=== PATIENT | female | born 1960 | race Caucasian/White ===

== ENCOUNTER → 2019-12-31 08:02 | Outpatient (CLI) | payer BC, SELFPAY ==
--- NOTE | ~2019-12-31 | MM_ITS ---
EXAMINATION: MM screening kaylee BI w marvin HISTORY: Screening mammogram TECHNIQUE: Craniocaudal and mediolateral oblique 3-D tomosynthesis images were obtained and synthetic 2-D images were generated. CAD analysis was submitted and interpreted. COMPARISON: 01/02/2017 bilateral diagnostic digital mammogram and Limited bilateral breast ultrasound 11/11/2016, 09/28/2015 bilateral digital screening mammogram examinations BREAST PARENCHYMAL COMPOSITION: There are scattered areas of fibroglandular density. FINDINGS: Numerous bilateral benign calcifications are noted. There is a stable mass in each breast, unchanged since 09/28/2015. There is no evidence of interval new suspicious mass, calcification, or a rchitectural distortion to suggest malignancy in either breast. There has been no suspicious interval change. IMPRESSION: 1. No mammographic evidence of malignancy. 2. Recommend routine screening mammography in one year. BI-RADS Category 2: Benign finding(s). Reviewed, dictated and finalized at location B. SALESPERSON
== END ==
PROVIDERS: Visit Provider Physician Assistant
DX: Z12.31 Encounter for screening mammogram for malignant neoplasm of breast (principal)
CPT/HCPCS: 77063; 77067

== ENCOUNTER 2020-05-11 15:15 | Inpatient (IN) | payer BC, SELFPAY ==
[2020-05-11] VITALS (29 sets, daily range): BP systolic 57–102; BP diastolic 43–75; PULSE 80–108; RESP 13–26; TEMP 36.1–36.6; O2SAT 98–100; BMI 22.1
--- NOTE | ~2020-05-11 | CT_ITS ---
EXAMINATION: CT chest abdomen wo con DATE: 05/12/2020 16:49 INDICATION: Weight loss. Dysphagia. TECHNIQUE: Computed tomography (CT) of the chest and abdomen was performed without intravenous contra st. Automated exposure control and iterative reconstruction technique were employed. The dose-length product was 301.16 mGy-cm. COMPARISON: None FINDINGS: CHEST CT: There is mild emphysema. There is mild atelectasis bilaterally. There is a 5 mm nodule in left lower lobe, likely benign. A calcified right lung nodule and calcified right hilar and mediastinal lymph no norma are consistent with old granulomatous disease. There is a trace right pleural effusion. The heart size is normal. There are coronary artery calcifications. No pericardial effusion. There is severe c ervical and thoracic spondylosis. ABDOMEN CT: There is a 13 mm cyst in the liver. Calcifications in the spleen are consistent with old granulomatou s disease. The gallbladder, pancreas, and right adrenal gland are normal. There is a 14 mm mass in le ft adrenal gland measuring low-attenuation, consistent with an adenoma. The kidneys are normal. There is no urolithiasis. There are no dilated loops of bowel. There are no pathologically enlarged lymph nodes. There is no free intraperitoneal fluid. There is moderate lumbar spondylosis. IMPRESSION: 1. Mild emphysema. Reviewed, dictated and finalized at location A. IMPRESSION: 1. Mild emphysema.
--- NOTE | ~2020-05-11 | CT_ITS ---
EXAMINATION: CT pelvis wo con DATE: 05/16/2020 10:54 INDICATION: Unintentional weight loss. TECHNIQUE: Computed tomography (CT) of the pelvis was performed without intravenous contrast. Automat ed exposure control and iterative reconstruction technique were employed. The dose-length product was 411.60 mGy-cm. COMPARISON: None FINDINGS: There are no dilated loops of bowel. There is a 3.9 cm subserosal uterine fibroid. There is a small left inguinal hernia containing fat. There are no pathologically enlarged lymph nodes. There is trace ascites. There is moderate lumbar spondylosis. IMPRESSION: 1. Uterine fibroid. 2. Left inguinal hernia containing fat. Reviewed, dictated and finalized at location A.
--- NOTE | ~2020-05-11 | CT_ITS ---
EXAMINATION: CT cervical spine wo con DATE: 05/12/2020 16:49 INDICATION: Syncope. Fall. TECHNIQUE: Computed tomography (CT) of the cervical spine was performed without intravenous contrast. Automated exposure control and iterative reconstruction technique were employed. The dose-length pro duct was 188.23 mGy-cm. COMPARISON: None FINDINGS: There is kyphosis of cervical spine. There is 12 degrees levoscoliosis of cervical spine. V ertebral body heights are normal. There is mildly decreased disc height at C4-C5 and severely decreas ed disc height at C5-C6 and C6-C7. The following disc levels are specifically discussed: C2-C3: There is no uncovertebral joint osteoarthritis. There is mild bilateral facet joint osteoarthr itis. There is no neural foraminal stenosis. There is no central canal stenosis. C3-C4: There is no uncovertebral joint osteoarthritis. There is no facet joint osteoarthritis. There is no neural foraminal stenosis. There is no central canal stenosis. C4-C5: There is mild bilateral uncovertebral joint osteoarthritis. There is mild left facet joint ost eoarthritis. There is no neural foraminal stenosis. There is mild central canal stenosis. C5-C6: There is severe bilateral uncovertebral joint osteoarthritis. There is mild bilateral facet santy int osteoarthritis. There is moderate bilateral neural foraminal stenosis. There is mild central chris l stenosis. C6-C7: There is severe bilateral uncovertebral joint osteoarthritis. There is mild right and moderate left facet joint osteoarthritis. There is mild right and moderate left neural foraminal stenosis. Th ere is mild central canal stenosis. C7-T1: There is no uncovertebral joint osteoarthritis. There is mild bilateral facet joint osteoarthr itis. There is no neural foraminal stenosis. There is no central canal stenosis. IMPRESSION: 1. No fracture. 2. Severe cervical spondylosis. Reviewed, dictated and finalized at location A.
--- NOTE | ~2020-05-11 | XR_ITS ---
XR chest 2V DATE: 05/11/2020 16:02 INDICATION: Weakness. Paresis. TECHNIQUE: AP and lateral views COMPARISON: None FINDINGS: Normal heart size. No hilar or mediastinal enlargement. Old pulmonary granulomatous disease including calcified right hilar nodes, calcified right pulmonary granuloma. No pulmonary infiltrate or consolidation, pleural effusion or pulmonary vascular congestion or pneumothorax. Bilateral cervical ribs. IMPRESSION: No active cardiopulmonary disease Reviewed, dictated and finalized at location A.
--- NOTE | ~2020-05-11 | CT_ITS ---
EXAMINATION: CT brain wo con DATE: 05/12/2020 16:49 INDICATION: Confusion. Syncope. TECHNIQUE: Computed tomography (CT) of the head was performed without intravenous contrast. The mA wa s adjusted according to patient size. Iterative reconstruction technique was employed. The dose-lengt h product was 605.33 mGy-cm. COMPARISON: None FINDINGS: There is no intracranial hemorrhage, acute infarction, or abnormal intracranial mass lesion . The ventricles are normal in size. There is mild mucosal thickening in sphenoid sinus. The orbits a re normal. The mastoid air cells are normal. IMPRESSION: 1. Normal brain. Reviewed, dictated and finalized at location A. IMPRESSION: 1. Normal brain.
--- NOTE | ~2020-05-11 | XR_ITS ---
EXAMINATION: XR barium swallow modified DATE: 05/15/2020 13:09 INDICATION: Dysphagia. TECHNIQUE: The patient was given barium-containing material of multiple consistencies to swallow by t betty speech pathologist while I performed fluoroscopy. Fluoroscopy exposure time was 1.9 minutes. The n umber of fluoroscopy images saved to the PACS was 1. Dose-area product was 1.506 Gy-cm^2. FINDINGS: There was no laryngeal penetration or aspiration. IMPRESSION: 1. No laryngeal penetration or aspiration. 2. Please refer to the speech therapy report for recommendations. Reviewed, dictated and finalized at location A.
--- NOTE | ~2020-05-11 | MR_ITS ---
EXAMINATION: MR brain/brain stem wo con DATE: 05/14/2020 19:09 INDICATION: Dysphagia. TECHNIQUE: Magnetic resonance imaging (MRI) of the brain and brainstem was performed without intraven ous contrast. Sequences included sagittal and axial T1-weighted FLAIR, axial T1-weighted FSE, axial d iffusion-weighted FS EPI, sagittal T2-weighted FLAIR, axial T2*-weighted GRE, axial T2-weighted FLAIR Propeller, and axial T2-weighted Propeller. Apparent diffusion coefficient (ADC) maps were created. COMPARISON: Head CT dated 05/12/2020 FINDINGS: There are no areas of restricted diffusion to suggest acute infarction. No intracranial hemorrhage or abnormal intracranial mass lesion. There is nonspecific increased T2-weighted signal intensity in th e periventricular cerebral white matter. No pericallosal white matter lesions to suggest multiple scl erosis. There are no intraparenchymal signal abnormalities seen on the other pulse sequences. The david tricles are symmetric and normal in size. There are no abnormal extra-axial fluid collections. Flow v oids are seen in the cerebral arteries on the T2-weighted sequences consistent with their expected pa tency. Mucous retention cyst in the left maxillary sinus. Visualized orbits and soft tissues are unre markable. IMPRESSION: 1. No stroke or other acute intracranial process. 2. Normal aging brain with mild relatively uniform periventricular white matter T2 hyperintensity. No more discrete T2 hyperintense foci and specifically no pericallosal white matter lesions to suggest multiple sclerosis. Reviewed, dictated and finalized at location A. IMPRESSION: 1. No stroke or other acute intracranial process. 2. Normal aging brain with mild relatively uniform periventricular white matter T2 hyperintensity. No more discrete T2 hyperintense foci and specifically no p ericallosal white matter lesions to suggest multiple sclerosis.
--- NOTE | ~2020-05-11 | US_ITS ---
EXAMINATION: US carotid duplex BI DATE: 05/12/2020 13:24 INDICATION: Syncope. TECHNIQUE: Grayscale, color Doppler, and pulsed Doppler images of the cervical carotid arteries were obtained. The degree of vessel stenosis is placed in one of the following categories: normal, <50%, 5 0-69%, >=70% but less than near-occlusion, near-occlusion, or total occlusion. Note that percent sten osis relative to normal distal artery lumen diameter is indirectly measured from velocity measurement s as described by Orlando, et al. Radiology 2003; [id number]:340-346. COMPARISON: None. FINDINGS: RIGHT: The right common carotid artery (CCA) peak systolic velocity (PSV) is 51 cm/s. The right internal car otid artery (ICA) PSV is 63 cm/s. The right ICA end-diastolic velocity (EDV) is 24 cm/s. The right IC A/CCA PSV ratio is 1.2. Grayscale and color Doppler images yield an estimate of <50% diameter reducti on from plaque in the ICA. There is antegrade flow in the right vertebral artery. LEFT: The left CCA PSV is 71 cm/s. The left ICA PSV is 87 cm/s. The left ICA EDV is 34 cm/s. The left ICA/C CA PSV ratio is 1.2. Grayscale and color Doppler images yield an estimate of <50% diameter reduction from plaque in the ICA. There is antegrade flow in the left vertebral artery. IMPRESSION: 1. <50% stenosis in the right internal carotid artery. 2. <50% stenosis in the left internal carotid artery. Reviewed, dictated and finalized at location A.
--- NOTE | ~2020-05-11 | XR_ITS ---
EXAMINATION: XR barium swallow DATE: 05/14/2020 16:35 INDICATION: Dysphagia. TECHNIQUE: The patient drank thick barium, gas-producing crystals, and thin barium. Fluoroscopic spot radiographs of the hypopharynx and esophagus were obtained. Fluoroscopy exposure time was 2.3 minut es. A total of 1400 fluoroscopic images were recorded. COMPARISON: None. FINDINGS: The pharynx is symmetric and without evidence of mass lesion or mucosal irregularity. The e sophagus is normal without mass or stricture. Primary and secondary peristaltic waves are within norm al limits for age. There are a few subsequent tertiary contractions. There is no hiatal hernia. There was no gastroesophageal reflux with provocative maneuvers. IMPRESSION: 1. Mild esophageal dysmotility with a few tertiary contractions following relatively normal primary a nd secondary peristaltic waves. Otherwise unremarkable esophagram. Reviewed, dictated and finalized at location A. IMPRESSION: 1. Mild esophageal dysmotility with a few tertiary contractions following relat ively normal primary and secondary peristaltic waves. Otherwise unremarkable es ophagram.
[2020-05-11 15:45] LABS: Basophils Absolute Auto 0.1 K/mm3 (0.0-0.1); Basophils Percent Auto 0.4 % (0.2-1.2); Eosinophils Percent Auto 0.1 % (0-4.4); Hemoglobin 11.9 g/dL (12.0-15.0); Immature Granulocyte Absolute 0.06 K/mm3 (0.00-0.031); Immature Granulocyte Percent A 0.5 % (0-0.5); Lymphocytes Absolute Auto 2.03 K/mm3 (0.9-3.2); Lymphocytes Percent Auto 17.5 % (18.3-44.2); Mean Corpuscular Hemoglobin 32.2 pg (26-34); Mean Corpuscular Volume 92.1 fl (80-100); Mean Platelet Volume 10.2 fl (7.4-10.4); Monocytes Absolute Auto 0.8 K/mm3 (0.1-0.6); Monocytes Percent Auto 6.6 % (2.6-8.5); Neutrophils Absolute Auto 8.7 K/mm3 (1.3-6.7); Neutrophils Percent Auto 74.9 % (45.5-73.1); Platelet Count Result 311 k/mm3 (150-375); Red Blood Count 3.69 M/mm3 (4.2-5.4); Red Cell Distribution Width 13.7 % (11.5-14.5); White Blood Count 11.6 K/mm3 (4.5-10.0)
[2020-05-11] MEDS: SODIUM CHLORIDE 0.9% IV 1,000 ML 999 ML IV CONT ×3 (15:47→17:32)
[2020-05-11 15:56] LABS: Lactic Acid Reflex 2.7 mmol/L (0.7-2.1)
[2020-05-11 15:57] LABS: Alanine Aminotransferase 16 U/L (4-35); Albumin Level 4.1 g/dL (3.5-5.1); Alkaline Phosphatase 195 U/L (38-126); Aspartate Amino Transferase 33 U/L (14-36); Bilirubin,Total 0.7 mg/dL (0.2-1.3); Blood Urea Nitrogen 44 mg/dL (7-17); Calcium 9.9 mg/dL (8.4-10.2); Carbon Dioxide 22 mmol/L (22-30); Chloride 95 mmol/L (98-107); Estimated CRCL calculation 23 ml/min; Estimated Glomerular Filt Rate 25; Glucose 123 mg/dL (65-105); Lipase 357 U/L (23-300); Potassium 3.2 mmol/L (3.4-5.0); Sodium 129 mmol/L (137-145)
[2020-05-11 17:41] LABS: Add Urine Microscopic? YES; Appearance Urine Cloudy (Clear); Bacteria Urine 4+ /hpf; Bilirubin Urine Negative (Negative); Blood Urine 1+ (Negative); Color Urine Yellow (Yellow); Glucose Urine UA Negative (Negative); Ketones Urine Trace mg/dL (Negative); Leukocyte Esterase Ur 1+ LEU/UL (Negative); Mucus Urine Rare /lpf; Nitrate Urine Negative (Negative); Protein Urine 2+ mg/dL (Negative); RBC Urine 0-2 /hpf (0-2); Specific Grav Ur 1.013 (1.001-1.035); Squamous Epithelial Cell Urine Few /hpf (Few)
[2020-05-11 17:43] LABS: Free T4 Free Thyroxine Reflex 1.67 ng/dL (0.78-2.19)
--- NOTE | 2020-05-11 18:01 | ED.WEAKNESS ---
HPI - Weakness General Chief complaint: Weakness Stated complaint: weakness, abnormal labs Time Seen by Provider: 05/11/20 15:26 History of Present Illness HPI Narrative: Patient is a 59-year-old female who presents the ER with abnormal labs and fatigue from her PCP office. Patient reports over the last 2 to 3 months she has lost 70 pounds. She reports she has lost her appetite but also has difficulty swallowing at times and has persistent nausea. No diarrhea or constipation. Denies any change in urinary habits. No recent illnesses. Patient quit smoking 6 months ago. She is without cough or dyspnea. Reports she has been working at home since December and has tried to maintain a normal schedule in terms of eating and moving around. Related Data Home Medications Medication Instructions Recorded Confirmed atorvastatin 05/11/20 dorzolamide-timolol 05/11/20 losartan-hydrochlorothiazide tablet 05/11/20 Allergies Allergy/AdvReac Type Severity Reaction Status Date / Time clindamycin Allergy Unknown Hives Verified 05/11/20 15:42 Penicillins Allergy Unknown Anaphylaxis Verified 05/11/20 15:42 cephalexin [From Keflex] Allergy Hives Verified 05/11/20 15:42 Review of Systems Review of Systems: All systems reviewed & are unremarkable except as noted in HPI and below Constitutional: Constitutional: Denies chills, Reports fatigue and Denies fever(s) ENT: Denies dizziness, Denies nasal congestion and Denies sore throat Cardiovascular: Cardiovascular: Denies chest pain and Denies rapid heart rate Respiratory: Respiratory: Denies cough, Denies dyspnea and Denies wheezing Gastrointestinal: Gastrointestinal: Denies abdominal pain, Denies diarrhea, Reports nausea and Denies vomiting Genitourinary: Genitourinary: Denies nocturia and Denies dysuria [facility] Past Medical History Medical History (Updated 05/11/20 @ 20:14 by Bandar Rivera MD) Hyperlipidemia Hypertension Surgical History Surgical History (Updated 05/11/20 @ 18:05 by Bandar Rivera MD) History of appendectomy Family History Family History (Updated 09/07/15 @ 15:47 by DOCTOR UNKNOWN) Other Family history of hypercholesterolemia Social History Social History (Updated 05/11/20 @ 18:05 by Bandar Rivera MD) Smoking status: Former smoker Smoking end date: 11/30/19 Alcohol intake: current Exam Narrative: Exam Narrative: GENERAL: Well-appearing, well-nourished, and in no acute distress. HEAD: Normocephalic, atraumatic. ENT: Mucous membranes moist. Neck: Supple, no thyromegaly appreciated. CHEST: Clear to auscultation. No respiratory distress. HEART: Regular rate and rhythm. Normal peripheral pulses. ABDOMEN: Soft, nontender, nondistended. EXTREMITIES: Normal range of motion. No edema. SKIN: Warm, dry, no rash. NEURO: Alert and oriented x3. PSYCH: Normal mood and affect. Course Course Emergency Course: Patient feeling better with IV fluid. Blood pressure in the 90s. Will admit to hospitalist service. Patient will likely need imaging tomorrow for further evaluation of her nausea and weight loss. Discussed with her that I am concerned that she could have a malignancy but that I do not have any concrete evidence of this other than a 70 pound weight loss over the last few months that was unintentional. Vital Signs Vital signs: Vital Signs Temperature 97.9 F 05/11/20 15:18 Pulse Rate 108 H 05/11/20 15:18 Respiratory Rate 20 05/11/20 15:18 Blood Pressure 57/43 L 05/11/20 15:18 Pulse Oximetry 100 05/11/20 15:18 Temperature 97.9 F 05/11/20 15:18 Pulse Rate 89 05/11/20 17:31 Respiratory Rate 13 05/11/20 17:31 Blood Pressure 98/68 L 05/11/20 18:42 Pulse Oximetry 100 05/11/20 17:02 MDM - Weakness Lab Data Result diagrams: 05/11/20 15:40 05/11/20 15:40 Labs: Lab Results 05/11/20 05/11/20 05/11/20 Range/Units 15:40 15:40 15:40 WBC 11.6 H (4.5-10
[2020-05-11 18:43] LABS: Reflex Lactic Acid Yes or No Add Lactic
[2020-05-11 18:54] LABS: Total Triiodothyronine (T3) 1.13 NG/ML (0.97-1.69)
--- NOTE | 2020-05-11 20:00 | PM.IMHP ---
H&P: HPI History of Present Illness Chief complaint: Abnormal labs.? Narrative: Brooklyn Godwin is a 59-year-old female with hypertension, hyperlipidemia, and glaucoma who presented to the emergency department earlier this afternoon at the direction of her primary care provider for evaluation of ?abnormal labs.? She had a routine appointment scheduled with her primary provider, Anabel Epstein PA-C, today and in anticipation she had labs drawn yesterday. She received a call today stating that her labs were abnormal and that she was to come to the emergency department for further evaluation. This did not surprise the patient as she assumed that she was dehydrated as she has had a poor appetite over the past several months. In fact she reports a 70 pound unintentional weight loss since the beginning of the year. With further questioning, she tells me that food just does not sound, that she has frequent nausea, and it sounds as though she has had dysphagia with both solids and liquids. ?I think my thyroid may be enlarged as I sometimes cough and choke while swallowing.? Over the past 6 weeks, she has been lightheaded and dizzy, mainly with position changes, and reports having a syncopal episode several weeks ago. In fact, she believe she had a syncopal episode this morning while getting ready for her appointment. She had a brief feeling of lightheadedness before coming to on the floor. She sustained no injuries. She has no known history of malignancy, had previously had abnormal mammograms however had normal mammography in December 2019. She denies lymphadenopathy and night sweats. No postmenopausal bleeding. She denies abdominal pain and epigastric pain. She rarely has heartburn. She denies hematemesis, melena, and hematochezia. She has never had endoscopy or colonoscopy. She further denies chest pain, pleuritic pain, palpitations, and shortness of breath. She continues to take her medications as prescribed. No recent additions to her medication regimen. Review of Systems Review of Systems: Narrative: Twelve systems were reviewed with pertinent positives and negatives as per HPI. No recent cold or flu symptoms. She denies headache. No auditory visual changes. She denies focal weakness and paresthesias. No history of cardiac or pulmonary disease. No history of malignancy. She has noticed a slight decrease in urine output but denies hematuria, dysuria, and feelings of incomplete evacuation after voiding.. No history of venous thromboembolism. Except as documented, all other systems were reviewed and are negative [facility] Past Medical History Medical History (Updated 05/11/20 @ 23:06 by Marilyn Arvizu PA-C) Glaucoma Hyperlipidemia Hypertension Surgical History Surgical History (Updated 05/11/20 @ 23:02 by Marilyn Arvizu PA-C) History of appendectomy History of bilateral carpal tunnel release History of section Family History Family History Mother Family history of hypercholesterolemia Hypertension Father Family history of hypercholesterolemia Hypertension Sibling Acute myocardial infarction Hypertension Family history of hypercholesterolemia Social History Social History (Updated 05/11/20 @ 23:02 by Marilyn Arvizu PA-C) Social History: Surrogate decision maker: Jules Bennett, . Code status: Full code. Smoking packs per day: 0.5 Smoking cigarettes per day: 10.0 Years smoked: 15 Smoking pack-years: 7.50 Smoking status: Former smoker Tobacco type: cigarettes Smoking end date: 11/30/19 Alcohol intake: never Substance use: never Substance use type: does not use Additional living arrangements comments: Patient lives with her in [place]. Additional occupation/education comments: Employed at [employer], but has worked from home since December 2019. Sexual Orientation (if Verbalized by the
[2020-05-11 20:21] LABS: Lactic Acid 1.1 mmol/L (0.7-2.1)
--- NOTE | 2020-05-11 21:23 | ADMGEN ---
This patient, Brooklyn Godwin, was admitted to IMU Room 202-01 on 05/11/20 at 2111. Patient/family oriented to hospital policies and general routines including ID bracelet, bed and alarms, visiting hours, pain management, procedures, bathroom and other care routines, personal items, smoking policy, room service/diet, and visiting hours. Valuables list has been completed. Information on how to activate the Rapid Response Team has been discussed. Patient/Family are encouraged to report perceived risks to care and to ask questions if they do not understand what they are told or what they should do.
[2020-05-11] MEDS: LACTATED RINGERS 1,000 ML 125 ML IV CONT (21:26)
[2020-05-11] MEDS: DORZOLAMIDE/TIMOLOL OPHTH SOL 10 ML BOTTLE 1 DROP EACH EYE (23:36)
[2020-05-11] MEDS: LATANOPROST 0.005% OP SOLN 2.5 ML BTL 1 DROP EACH EYE (23:38)
[2020-05-11] MEDS: FAMOTIDINE 20 MG/2 ML VIAL IV PUSH (23:38)
[2020-05-11 23:47] LABS: Magnesium 1.6 mg/dL (1.6-2.3)
[2020-05-11 23:48] LABS: Blood Urea Nitrogen 37 mg/dL (7-17); Calcium 8.6 mg/dL (8.4-10.2); Carbon Dioxide 19 mmol/L (22-30); Chloride 105 mmol/L (98-107); Estimated CRCL calculation 31 ml/min; Estimated Glomerular Filt Rate 35; Glucose 102 mg/dL (65-105); Phosphorus 3.5 mg/dL (2.5-4.5); Potassium 2.9 mmol/L (3.4-5.0); Sodium 132 mmol/L (137-145)
[2020-05-12] VITALS (15 sets, daily range): BP systolic 94–113; BP diastolic 63–75; PULSE 81–93; RESP 12–20; TEMP 36.1–36.6; O2SAT 96–100
--- NOTE | 2020-05-12 | ECHO_ITS ---
Patient Info Name: Brooklyn Godwin Age: 59 years : 1960 Gender: Female Ht: 64 in Wt: 128 lbs BSA: 1.62 m2 HR: 93 bpm BP: 113 / 72 mmHg Heart Rhythm: Sinus Rhythm Technical Quality: Good Exam Date: 05/12/2020 10:48 AM Exam Location: [facility] Room: [facility] Patient Status: Inpatient Admit Date: 05/11/2020 Staff Ordering Physician: Fanny Bentley PA-C Offset Press Operator: Jaclyn Robert RDCS Attending Provider: Fanny Bentley PA-C Referring Physician: Sheree WHEELER; Exam Type: CA echo dop color flow w con Study Info Indications - syncope Complete two-dimensional, color flow and Doppler transthoracic echocardiogram is performed. Summary 1. Left ventricular chamber dimension is normal. 2. Left ventricular systolic function is normal, estimated at 65-70%. 3. There is no increased left ventricular wall thickness. 4. Left ventricular septal wall motion is normal. 5. The left ventricular diastolic function is grade I diastolic dysfunction. 6. There is mild to moderate mitral valve regurgitation. 7. There is mild tricuspid valve regurgitation. 8. Left atrial chamber dimension is mildly enlarged. Left Ventricle Left ventricular chamber dimension is normal. Left ventricular systolic function is normal, estimated at 65-70%. There is no increased left ventricular wall thickness. Left ventricular septal wall motion is normal. The left ventricular diastolic function is grade I diastolic dysfunction. Right Ventricle Right ventricular chamber dimension is normal. Right ventricular systolic function is normal. Left Atria Left atrial chamber dimension is mildly enlarged. Right Atria Right atrial chamber dimension is normal. Atrial Septum Intact interatrial septum visualized by color flow imaging. Aortic Valve The aortic valve is trileaflet. There is mild aortic valve sclerosis. There is no aortic valve stenosis. There is trace aortic valve regurgitation. Pulmonic Valve The pulmonic valve is normal. There is no pulmonic valve stenosis. There is trace pulmonic regurgitation. Mitral Valve The mitral valve has normal leaflets. There is no mitral valve stenosis. There is mild to moderate mitral valve regurgitation. Tricuspid Valve The tricuspid valve leaflets are normal. There is no significant tricuspid valve stenosis. There is mild tricuspid valve regurgitation. No pulmonary hypertension, estimated pulmonary arterial systolic pressure is 28 mmHg. Pericardium/Pleural The pericardium appears normal. There is trivial pericardial effusion. Inferior Vena Cava Normal inferior vena cava with >50% collapse upon inspiration consistent with normal right atrial pressure, 5 mmHg. Aorta The aortic root size at the sinus of Valsalva is normal. The prox ascending aorta size is normal. Left Ventricular Outflow Tract Name Value Normal LVOT 2D LVOT Diameter 1.97 cm LVOT Doppler LVOT Peak Gradient 4 mmHg LVOT Mean Gradient 2 mmHg LVOT VTI 18.81 cm LVOT VTI/
[2020-05-12 05:44] LABS: Basophils Percent Auto 0.4 % (0.2-1.2); Eosinophils Percent Auto 0.4 % (0-4.4); Hematocrit 28.7 % (37.0-47.0); Hemoglobin 9.8 g/dL (12.0-15.0); Immature Granulocyte Absolute 0.04 K/mm3 (0.00-0.031); Immature Granulocyte Percent A 0.5 % (0-0.5); Lymphocytes Absolute Auto 2.38 K/mm3 (0.9-3.2); Mean Corpuscular HGB Conc 34.1 g/dl (32-36); Mean Corpuscular Hemoglobin 32.5 pg (26-34); Mean Platelet Volume 10.7 fl (7.4-10.4); Monocytes Absolute Auto 0.5 K/mm3 (0.1-0.6); Monocytes Percent Auto 6.8 % (2.6-8.5); Neutrophils Absolute Auto 4.9 K/mm3 (1.3-6.7); Neutrophils Percent Auto 61.9 % (45.5-73.1); Platelet Count Result 237 k/mm3 (150-375); Red Blood Count 3.02 M/mm3 (4.2-5.4); Red Cell Distribution Width 13.7 % (11.5-14.5); White Blood Count 7.9 K/mm3 (4.5-10.0)
[2020-05-12 05:51] LABS: Alanine Aminotransferase 12 U/L (4-35); Albumin Level 3.1 g/dL (3.5-5.1); Alkaline Phosphatase 150 U/L (38-126); Aspartate Amino Transferase 24 U/L (14-36); Bilirubin,Total 0.4 mg/dL (0.2-1.3); Blood Urea Nitrogen 36 mg/dL (7-17); Calcium 8.6 mg/dL (8.4-10.2); Carbon Dioxide 20 mmol/L (22-30); Chloride 104 mmol/L (98-107); Estimated CRCL calculation 33 ml/min; Estimated Glomerular Filt Rate 38; Glucose 99 mg/dL (65-105); Magnesium 1.6 mg/dL (1.6-2.3); Potassium 3.2 mmol/L (3.4-5.0); Sodium 135 mmol/L (137-145)
--- NOTE | 2020-05-12 09:24 | PM.IMPN ---
Progress Note: A&P Assessment and Plan (1) Acute kidney injury: Code(s): N17.9 - Acute kidney failure, unspecified Status: Acute Assessment and Plan: On arrival patient creatinine was found to be 2.0 which is signs of acute kidney injury most likely due to hypovolemia and dehydration and hypoperfusion from hypotension in the setting of diuretic/ARB combination. She is receiving aggressive IV fluid rehydration Creatinine today improved to 1.4. Will continue monitoring electrolytes and renal function, urine output and avoid nephrotoxic medications. (2) Syncope: Code(s): R55 - Syncope and collapse Status: Acute Assessment and Plan: Patient reports to syncopal episodes in the last 6 weeks along with lightheadedness with positional changes. This could all be secondary to acute dehydration and orthostatic hypotension, but the most concerning part is that yesterday her syncopal episode occurred without any warning. Further cardiac workup will be completed on the patient to rule out another cause to her syncope Echocardiogram was ordered Orthostatic vital signs will be completed once shift Telemetry shows normal sinus rhythm with a heart rate of 85 beats per minute, few alarms for artifact only and no arrhythmias noted. We cannot rule out the patient having potential cancer with a 70 lb weight loss, will get a CT brain to look for any acute abnormality and may potentially order an MRI of her brain for further evaluation. Continue monitoring patient's symptoms and continue some IV fluids at this time. (3) Dysphagia: Code(s): R13.10 - Dysphagia, unspecified Status: Acute Assessment and Plan: Patient reports for the last few months she has been feeling there is something the back of her throat and she sometimes has problems swallowing food and liquids. GI was consulted for further evaluation and potential EGD Continue monitoring patient's symptoms (4) Hypotension: Code(s): I95.9 - Hypotension, unspecified Status: Acute Assessment and Plan: Presumably due to profound dehydration in the setting of continued antihypertensive use. No history to suggest underlying infection or sepsis. Blood pressure was stable at 113/70 to after being given IV fluids since arrival. Her losartan hydrochlorothiazide medication for blood pressure due to VANDA and hypotension. Will continue monitoring her blood pressure and continue some IV fluids at this time. (5) Dehydration: Code(s): E86.0 - Dehydration Status: Acute Assessment and Plan: She has had poor oral intake for the past several months due to lack of appetite and dysphagia. IV fluid rehydration as above. (6) Electrolyte imbalance: Code(s): E87.8 - Other disorders of electrolyte and fluid balance, not elsewhere classified Status: Acute Assessment and Plan: On arrival electrolyte imbalance showed hyponatremia (129) and mild hypokalemia (3.2). After IV fluids this morning, sodium was 135 and potassium was still low at 3.2. Magnesium was also low at 1.6. Will replenish potassium and magnesium and recheck a BMP/Mag at 1:00 p.m.. Continue monitoring (7) Unintentional weight loss: Code(s): R63.4 - Abnormal weight loss Status: Acute Assessment and Plan: History concerning for underlying malignancy versus peptic ulcer verses esophageal stricture. Dr. Christianson was consulted for further workup given ongoing dysphagia. She may need imaging of her chest, abdomen, and pelvis, and hopefully her renal function will improve for that. Continue monitoring patient's symptoms and will wait for
[2020-05-12] MEDS: MAGNESIUM SULFATE 3GM/D5W100ML 3 GM/100 ML BAG IVPB (09:26)
[2020-05-12] MEDS: ATORVASTATIN 20 MG TABLET PO (09:27)
[2020-05-12] MEDS: LACTATED RINGERS 1,000 ML 125 ML IV CONT ×2 (09:29→18:13)
[2020-05-12] MEDS: POTASSIUM CHLORIDE 20 MEQ TABLET 40 MEQ PO (09:30)
[2020-05-12] MEDS: FAMOTIDINE 20 MG/2 ML VIAL IV PUSH ×2 (11:19→20:24)
--- NOTE | 2020-05-12 12:37 | WPDGICN ---
Assessment and Plan Assessment and plan (1) Dysphagia: Qualifiers: Dysphagia type: unspecified Qualified Code(s): R13.10 - Dysphagia, unspecified Code(s): R13.10 - Dysphagia, unspecified Status: Acute Assessment and Plan: we will need to perform EGD, assess if stricture and also malignancy given weight loss. Will do it this Thursday (2) Unintentional weight loss: Code(s): R63.4 - Abnormal weight loss Status: Acute Assessment and Plan: will get imaging of chest/abdomen, primary also ordered CT brain because syncope also will do a colonoscopy this Thursdaywith EGD (continue medical treatment for dehydration for now) (3) Acute kidney injury: Code(s): N17.9 - Acute kidney failure, unspecified Status: Acute Assessment and Plan: improving. (4) Dehydration: Code(s): E86.0 - Dehydration Status: Acute Assessment and Plan: treated, she is better, normal lactic acid now (5) Hypotension: Qualifiers: Hypotension type: unspecified hypotension type Qualified Code(s): I95.9 - Hypotension, unspecified Code(s): I95.9 - Hypotension, unspecified Status: Acute Assessment and Plan: resolved with medical treatment (6) Syncope: Code(s): R55 - Syncope and collapse Status: Acute GI Consult Note Consult date/time: 05/12/20 12:37 Reason for consult: weight loss, dysphagia HPI: Brooklyn Godwin is a 59 year old female with history of hypertension, hyperlipidemia, and glaucoma admitted after was told to come to ER because recent abnormal blood work by PCP, had VANDA and hyponatremia. She had progressive dysphagia to solids for few weeks, she thought could have been enlarged thyroid because sensation of food getting stuck at neck area, also 70 pound unintentional weight loss since the beginning of the year, frequent nausea with lack of appetite, feeling lightheaded and near syncopal episodes. She was admitted with diagnosis of dehydration, acute renal failure, hyponatremia, also had mild elevated lactic acid. Blood work improved this morning. Thyroid levels normal. Never had scopes. She is former smoker for 20 years. Hb was 9.8 after hydration. Denies melena. Review of Systems Constitutional: Constitutional: Reports lethargy, Reports poor appetite and Reports weight loss Eyes: Eyes: Denies blurry vision ENT: Reports Normal hearing present, Denies headache(s) and Denies neck pain Cardiovascular: Cardiovascular: Denies chest pain and Denies dyspnea Respiratory: Respiratory: Denies dyspnea Gastrointestinal: Gastrointestinal: Reports dysphagia and Reports nausea Genitourinary: Genitourinary: Denies dysuria Musculoskeletal: Musculoskeletal: Denies neck pain Integumentary/Breasts: Skin/Breast: Denies dry skin Neurologic: Reports Normal hearing present and Reports syncope Psychiatric: Psychiatric: Denies anxiety Endocrine: Endocrine: Denies change in body appearance Hematologic/Lymphatic: Hematologic/Lymphatic: Denies easy bleeding Allergic/Immunologic: Allergic/Immunologic: Denies urticaria PMFSH Past Medical History Medical History (Updated 05/12/20 @ 12:44 by Jose Christianson MD) Glaucoma Hyperlipidemia Hypertension Surgical History Surgical History (Updated 05/11/20 @ 23:02 by Marilyn Arvizu PA-C) History of appendectomy History of bilateral carpal tunnel release History of section Family History Family History Mother Family history of hypercholesterolemia Hypertension Father Family history of hypercholesterolemia Hypertension Sibling Acute myocardial infarction Hypertension Family history of hypercholesterolemia Social History Social History (Updated 05/11/20 @ 23:02 by Marilyn Arvizu PA-C) Social History: Surrogate decision maker: Jules Bennett, . Code status: Full code.
[2020-05-12 15:09] LABS: Blood Urea Nitrogen 28 mg/dL (7-17); Calcium 9.1 mg/dL (8.4-10.2); Carbon Dioxide 20 mmol/L (22-30); Chloride 104 mmol/L (98-107); Estimated CRCL calculation 38 ml/min; Estimated Glomerular Filt Rate 46; Glucose 96 mg/dL (65-105); Sodium 131 mmol/L (137-145)
[2020-05-12] MEDS: DORZOLAMIDE/TIMOLOL OPHTH SOL 10 ML BOTTLE 1 DROP EACH EYE (20:22)
[2020-05-12] MEDS: LATANOPROST 0.005% OP SOLN 2.5 ML BTL 1 DROP EACH EYE (20:25)
[2020-05-13] VITALS (17 sets, daily range): BP systolic 91–131; BP diastolic 59–89; PULSE 76–98; RESP 12–20; TEMP 35.8–36.4; O2SAT 98–100
[2020-05-13] MEDS: LACTATED RINGERS 1,000 ML 125 ML IV CONT (02:13)
[2020-05-13 05:31] LABS: Hematocrit 28.8 % (37.0-47.0); Mean Corpuscular HGB Conc 34.7 g/dl (32-36); Mean Corpuscular Hemoglobin 32.4 pg (26-34); Mean Corpuscular Volume 93.2 fl (80-100); Mean Platelet Volume 10.4 fl (7.4-10.4); Platelet Count Result 216 k/mm3 (150-375); Red Blood Count 3.09 M/mm3 (4.2-5.4); Red Cell Distribution Width 13.5 % (11.5-14.5); White Blood Count 7.9 K/mm3 (4.5-10.0)
[2020-05-13 05:46] LABS: Blood Urea Nitrogen 23 mg/dL (7-17); Carbon Dioxide 20 mmol/L (22-30); Chloride 104 mmol/L (98-107); Estimated CRCL calculation 45 ml/min; Estimated Glomerular Filt Rate 56; Glucose 83 mg/dL (65-105); Magnesium 2.2 mg/dL (1.6-2.3); Potassium 3.6 mmol/L (3.4-5.0); Sodium 131 mmol/L (137-145)
[2020-05-13] MEDS: ATORVASTATIN 20 MG TABLET PO (09:48)
[2020-05-13] MEDS: FAMOTIDINE 20 MG/2 ML VIAL IV PUSH ×2 (09:48→21:08)
[2020-05-13] MEDS: LACTATED RINGERS 1,000 ML 70 ML IV CONT (09:48)
--- NOTE | 2020-05-13 11:42 | WPDGIPROGNO ---
Progress Note: A&P Assessment and Plan (1) Unintentional weight loss: Code(s): R63.4 - Abnormal weight loss Status: Acute Assessment and Plan: will proceed with egd and colonoscopy CT scan reviewed, no major findings (2) Dysphagia: Qualifiers: Dysphagia type: unspecified Qualified Code(s): R13.10 - Dysphagia, unspecified Code(s): R13.10 - Dysphagia, unspecified Status: Acute Assessment and Plan: egd in am (3) Acute kidney injury: Code(s): N17.9 - Acute kidney failure, unspecified Status: Acute Assessment and Plan: improved after hydration (4) Syncope: Qualifiers: Syncope type: unspecified Qualified Code(s): R55 - Syncope and collapse Code(s): R55 - Syncope and collapse Status: Acute Assessment and Plan: CT scan brain normal (5) Hyponatremia: Code(s): E87.1 - Hypo-osmolality and hyponatremia Status: Acute Subjective Date/time seen: 05/13/20 11:42 Interval history: still weak but no other events Review of Systems Review of Systems: All systems reviewed & are unremarkable except as noted in HPI and below Exam Const: General: comfortable and no acute distress HENMT: General nose exam: Normal nares present Eyes: General: appearance normal, both eyes and all related structures Neck: Neck: no JVD Resp: Auscultation: clear to auscultation bilaterally Cardio: Rate: regular rate Rhythm: regular rhythm GI: Inspection: non-distended GI Palp: Yes Soft to palpation Skin: General skin exam: normal color Neuro: General: gait normal Speech: normal speech Extrem: General: normal to inspection Psych: Mental Status: mental status grossly normal Objective Data Vital Signs Vital Signs: Vital Signs - 24 hr 05/12/20 12:00 05/12/20 14:00 05/12/20 16:00 Temperature 97.8 F 97.6 F Pulse Rate 86 83 82 Respiratory Rate 16 12 Blood Pressure 96/67 L 102/74 Pulse Oximetry 100 100 05/12/20 18:00 05/12/20 20:00 05/12/20 20:24 Temperature 97.2 F L Pulse Rate 82 83 86 Respiratory Rate 20 Blood Pressure 110/75 Pulse Oximetry 100 05/12/20 22:00 05/13/20 00:00 05/13/20 00:01 Temperature 96.7 F L Pulse Rate 89 85 84 Respiratory Rate 18 Blood Pressure 108/75 Pulse Oximetry 100 05/13/20 00:02 05/13/20 00:03 05/13/20 02:00 Temperature 96.6 F L 96.5 F L Pulse Rate 89 88 83 Respiratory Rate 20 18 Blood Pressure 96/59 L 91/66 L Pulse Oximetry 100 98 05/13/20 03:52 05/13/20 04:00 05/13/20 06:00 Temperature 97.2 F L Pulse Rate 84 98 87 Respiratory Rate 20 Blood Pressure 116/79 Pulse Oximetry 100 05/13/20 08:00 05/13/20 08:50 05/13/20 08:52 Temperature 97.5 F L Pulse Rate 78 82 89 Respiratory Rate 16 Blood Pressure 126/83 123/82 129/75 Pulse Oximetry 100 Intake/Output Intake/Output: Intake & Output 05/10/20 05/11/20 05/12/20 05/13/20 23:59 23:59 23:59 23:59 Intake Total 3000 3065 2320 Output Total 1150 1400 Balance 3000 1915 920 Meds/Results Medications: Active Medications Generic Name Dose Route Start Last Admin Trade Name Freq PRN Reason Stop Dose Admin Acetaminophen 650 mg 05/11/20 19:12 Tylenol Tablet PO Q4H PRN Mild Pain (1-3) or Fever Atorvastatin Calcium 20 mg 05/12/20 09:00 05/13/20 09:48 Lipitor PO 20 mg DAILY JAMI Administration Bisacodyl 20 mg 05/13/20 17:00 Dulcolax Tab PO 05/13/20 17:01 ONCE ONE Dorzolamide/Timolol 1 drop 05/11/20 23:30 05/12/20 20:22 Cosopt Eye Drops EACH EYE 1 drop HS JAMI Administration Famotidine 20 mg 05/11/20 23:25 05/13/20 09:48 Pepcid Iv IV PUSH 20 mg Q12HR JAMI Administration Lactated Ringer's 1,000 mls @ 70 mls/hr 05/11/20 19:15 05/13/20 09:48 Lr - Lactated Ringers Iv IV CONT 70 mls/hr .[id number] JAMI Administration Latanoprost 1 drop 05/11/20 23:25 06/13/20 20:25 Xalatan EACH EYE 1
--- NOTE | 2020-05-13 13:52 | PM.IMPN ---
Progress Note: A&P Assessment and Plan (1) Acute kidney injury: Code(s): N17.9 - Acute kidney failure, unspecified Status: Acute Assessment and Plan: On arrival patient creatinine was found to be 2.0 which is signs of acute kidney injury most likely due to hypovolemia and dehydration and hypoperfusion from hypotension in the setting of diuretic/ARB combination. Creatinine today improved to 1.0. Will decrease IV fluids slightly tonight and recheck in the morning. Will continue monitoring electrolytes and renal function, urine output and avoid nephrotoxic medications. (2) Syncope: Qualifiers: Syncope type: unspecified Qualified Code(s): R55 - Syncope and collapse Code(s): R55 - Syncope and collapse Status: Acute Assessment and Plan: Patient reports to syncopal episodes in the last 6 weeks along with lightheadedness with positional changes. This could all be secondary to acute dehydration and orthostatic hypotension, but the most concerning part is that yesterday her syncopal episode occurred without any warning. Further cardiac workup will be completed on the patient to rule out another cause to her syncope Echocardiogram showed Left ventricular chamber dimension is normal. Left ventricular systolic function is normal, estimated at 65-70%. There is no increased left ventricular wall thickness.. Left ventricular septal wall motion is normal. The left ventricular diastolic function is grade I diastolic dysfunction. There is mild to moderate mitral valve regurgitation. Carotid Doppler showed less than 50% stenosis bilaterally Orthostatic vital signs: Supine 126/83, sitting 123/82, standing 129/75. No signs orthostatic blood pressures. Telemetry shows normal sinus rhythm with a heart rate of 89 beats per minute, few alarms for artifact only and no arrhythmias noted. We cannot rule out the patient having potential cancer with a 70 lb weight loss, will get a CT brain to look for any acute abnormality and may potentially order an MRI of her brain for further evaluation. Continue monitoring patient's symptoms and continue some IV fluids at this time. (3) Dysphagia: Qualifiers: Dysphagia type: unspecified Qualified Code(s): R13.10 - Dysphagia, unspecified Code(s): R13.10 - Dysphagia, unspecified Status: Acute Assessment and Plan: Patient reports for the last few months she has been feeling there is something the back of her throat and she sometimes has problems swallowing food and liquids. GI was consulted and going to perform an EGD and colonoscopy on the patient in the morning. Continue monitoring patient's symptoms (4) Hypotension: Qualifiers: Hypotension type: unspecified hypotension type Qualified Code(s): I95.9 - Hypotension, unspecified Code(s): I95.9 - Hypotension, unspecified Status: Acute Assessment and Plan: Presumably due to profound dehydration in the setting of continued antihypertensive use. No history to suggest underlying infection or sepsis. Blood pressure was stable at 129/75. Continue some light IV fluid hydration. Her losartan hydrochlorothiazide medication for blood pressure due to VANDA and hypotension. Will continue monitoring her blood pressure and continue some IV fluids at this time. (5) Dehydration: Code(s): E86.0 - Dehydration Status: Acute Assessment and Plan: She has had poor oral intake for the past several months due to lack of appetite and dysphagia. IV fluid rehydration as above. (6) Electrolyte imbalance: Code(s): E87.8 - Other disorders of electrolyte and fluid balance, not elsewhere classified Status: Acute Assessme
[2020-05-13 16:27] LABS: Add Urine Microscopic? YES; Amorphous Sediment Urine Few; Appearance Urine Cloudy (Clear); Bacteria Urine Trace /hpf; Bilirubin Urine Negative (Negative); Blood Urine Negative (Negative); Color Urine Yellow (Yellow); Glucose Urine UA Negative (Negative); Ketones Urine Negative (Negative); Leukocyte Esterase Ur 1+ LEU/UL (Negative); Mucus Urine Rare /lpf; Nitrate Urine Positive (Negative); Protein Urine Negative (Negative); RBC Urine 0-2 /hpf (0-2); Squamous Epithelial Cell Urine Occasional /hpf (Few); WBC Urine 21-30 /hpf
--- NOTE | 2020-05-13 17:16 | PC.NURSE ---
This patient, Brooklyn Godwin, was transferred to [facility] on 05/13/20 at 1717. Personal belongings sent with patient. Report given to Adriana CHRISTIANSON. Appropriate documentation sent with patient.
[2020-05-13] MEDS: PEG (High)/E-LYTE SOLN 4,000 ML BTL 4000 ML PO (17:34)
[2020-05-13] MEDS: BISACODYL 5 MG TABLET EC 20 MG PO (17:34)
--- NOTE | 2020-05-13 17:58 | PC.NURSE ---
Patient received from IMU alert and oriented at 1730.
[2020-05-13] MEDS: ONDANSETRON INJ 4 MG/2 ML VIAL IV PUSH (19:54)
[2020-05-13] MEDS: LATANOPROST 0.005% OP SOLN 2.5 ML BTL 1 DROP EACH EYE (21:09)
[2020-05-13] MEDS: DORZOLAMIDE/TIMOLOL OPHTH SOL 10 ML BOTTLE 1 DROP EACH EYE (21:09)
[2020-05-14] VITALS (15 sets, daily range): BP systolic 89–127; BP diastolic 50–80; PULSE 68–87; RESP 12–21; TEMP 35.7–36.9; O2SAT 100; BMI 24.8
[2020-05-14] MEDS: LACTATED RINGERS 1,000 ML 70 ML IV CONT (00:12)
[2020-05-14] MEDS: MAGNESIUM CITRATE 300 ML BTL PO (04:09)
[2020-05-14 06:16] LABS: Basophils Percent Auto 0.5 % (0.2-1.2); Eosinophils Percent Auto 0.5 % (0-4.4); Hematocrit 28.8 % (37.0-47.0); Hemoglobin 9.9 g/dL (12.0-15.0); Immature Granulocyte Absolute 0.02 K/mm3 (0.00-0.031); Immature Granulocyte Percent A 0.2 % (0-0.5); Lymphocytes Absolute Auto 2.45 K/mm3 (0.9-3.2); Lymphocytes Percent Auto 29.4 % (18.3-44.2); Mean Corpuscular HGB Conc 34.4 g/dl (32-36); Mean Corpuscular Hemoglobin 31.9 pg (26-34); Mean Corpuscular Volume 92.9 fl (80-100); Mean Platelet Volume 10.2 fl (7.4-10.4); Monocytes Absolute Auto 0.5 K/mm3 (0.1-0.6); Monocytes Percent Auto 5.4 % (2.6-8.5); Neutrophils Absolute Auto 5.3 K/mm3 (1.3-6.7); Platelet Count Result 226 k/mm3 (150-375); Red Cell Distribution Width 13.5 % (11.5-14.5); White Blood Count 8.3 K/mm3 (4.5-10.0)
[2020-05-14 06:46] LABS: Blood Urea Nitrogen 16 mg/dL (7-17)
[2020-05-14 06:52] LABS: Calcium 9.1 mg/dL (8.4-10.2); Carbon Dioxide 23 mmol/L (22-30); Chloride 101 mmol/L (98-107); Estimated CRCL calculation 50 ml/min; Estimated Glomerular Filt Rate > 60; Glucose 93 mg/dL (65-105); Magnesium 1.7 mg/dL (1.6-2.3); Potassium 3.2 mmol/L (3.4-5.0); Sodium 132 mmol/L (137-145)
[2020-05-14] MEDS: MAGNESIUM SULF 2 GM/WATER 50ML 2 GM/50 ML BAG IVPB (09:41)
[2020-05-14] MEDS: POTASSIUM CHLORIDE 20 MEQ TABLET 40 MEQ PO (09:41)
[2020-05-14] MEDS: ATORVASTATIN 20 MG TABLET PO (09:42)
[2020-05-14] MEDS: FAMOTIDINE 20 MG/2 ML VIAL IV PUSH (09:42)
[2020-05-14] MEDS: LACTATED RINGERS 1,000 ML 150 ML IV CONT (11:26)
--- NOTE | 2020-05-14 12:02 | WPDANESEPPF ---
Anes - Initial Pre Proc Eval Procedure: Operation Date: 05/14/20 13:15 Proposed Procedures p Esophagogastroduodenoscopy & Colonoscopy - Jose Christianson MD Date/Time: 05/14/20 12:02 Surgeon: Fanny Bentley PA-C Pre Op Diagnosis: Abnormal labs.? Patient Data Age: 59 Gender: F Height: 5 ft 4 in Weight: 65.6 kg Last Vital Signs Temp 36.9 C 05/14/20 11:21 Pulse 79 05/14/20 11:21 Resp 18 05/14/20 11:21 BP 125/80 05/14/20 11:21 Pulse Ox 100 05/14/20 11:21 Allergies Allergy/AdvReac Type Severity Reaction Status Date / Time clindamycin Allergy Unknown Hives Verified 05/11/20 22:26 Penicillins Allergy Unknown Anaphylaxis Verified 05/11/20 22:26 cephalexin [From Keflex] Allergy Hives Verified 05/11/20 22:26 Home Medications Medication Instructions Recorded Confirmed Type atorvastatin 20 mg PO DAILY 05/11/20 05/11/20 History dorzolamide-timolol 1 drp OPHTHALMIC (EYE) HS 05/11/20 05/11/20 History ibuprofen 200 mg PO Q6H PRN 05/11/20 05/11/20 History latanoprost 1 drp OPHTHALMIC (EYE) HS 05/11/20 05/11/20 History losartan-hydrochlorothiazide 1 tablet PO DAILY 05/11/20 05/11/20 History Laboratory Tests 05/13/20 05/14/20 05/14/20 16:04 05:38 05:38 WBC 8.3 K/mm3 K/mm3 (4.5-10.0) RBC 3.10 M/mm3 L M/mm3 (4.2-5.4) Hgb 9.9 g/dL L g/dL (12.0-15.0) Hct 28.8 % L % (37.0-47.0) MCV 92.9 fl fl (80-100) MCH 31.9 pg pg (26-34) MCHC 34.4 g/dl g/dl (32-36) RDW 13.5 % % (11.5-14.5) Plt Count 226 k/mm3 k/mm3 (150-375) MPV 10.2 fl fl (7.4-10.4) Immature Gran % (Auto) 0.2 % % (0-0.5) Neut % (Auto) 64.0 % % (45.5-73.1) Lymph % (Auto) 29.4 % % (18.3-44.2) [place] % (Auto) 5.4 % % (2.6-8.5) Eos % (Auto) 0.5 % % (0-4.4) Baso % (Auto) 0.5 % % (0.2-1.2) Lymph # (Auto) 2.45 K/mm3 K/mm3 (0.9-3.2) [place] # (Auto) 0.5 K/mm3 K/mm3 (0.1-0.6) Eos # (Auto) 0.0 K/mm3 K/mm3 (0-0.3) Baso # (Auto) 0.0 K/mm3 K/mm3 (0.0-0.1) Abs Immat Gran (auto) 0.02 K/mm3 K/mm3 (0.00-0.031) Absolute Neuts (auto) 5.3 K/mm3 K/mm3 (1.3-6.7) Absolute Nucleated RBC 0.0 K/mm3 K/mm3 (0.0-0.012) Nucleated RBC % 0.0 % % (0.0-0.2) Sodium 132 mmol/L L mmol/L (137-145) Potassium 3.2 mmol/L L mmol/L (3.4-5.0) Chloride 101 mmol/L mmol/L (98-107) Carbon Dioxide 23 mmol/L mmol/L (22-30) BUN 16 mg/dL mg/dL (7-17) Creatinine 0.90 mg/dL mg/dL (0.7-1.0) Estim Creat Clear Calc 50 ml/min ml/min Estimated GFR > 60 (59 - ) Glucose 93 mg/dL mg/dL (65-105) Calcium 9.1 mg/dL mg/dL (8.4-10.2) Magnesium 1.7 mg/dL mg/dL (1.6-2.3) Urine Color Yellow (Yellow) Urine Appearance Cloudy H (Clear) Urine pH 6.0 (5.0-9.0) Ur Specific [place] 1.010 (1.001-1.035) Urine Protein Negative mg/dL mg/dL (Negative) Urine Glucose (UA) Negative mg/dL mg/dL (Negative) Urine Ketones Negative mg/dL mg/dL (Negative) Ur Blood (Man) Negative (Negative) Urine Nitrate Positive H (Negative) Urine Bilirubin Negative (Negative) Urine Urobilinogen 2.0 mg/dL H mg/dL (<2.0) Leukocyte Esterase Rfl 1+ CONSUELO/UL H CONSUELO/UL (Negative) Urine RBC 0-2 /hpf /hpf (0-2) Urine WBC 21-30 /hpf H /hpf Ur Squamous Epith Cells Occasional /hpf /hpf (Few) Amorphous Sediment Few H (None) Urine Bacteria Trace /hpf /hpf Urine Mucus Rare /lpf /lpf Patient hx anesthesia problems: none Family hx anesthesia problems: none PMFSH Past Medical History Medical History (Reviewed 05/14/20 @ 12:02
--- NOTE | 2020-05-14 13:50 | PC.NURSE ---
Returned from GI Lab via stretcher.
--- NOTE | 2020-05-14 15:33 | PM.IMPN ---
Progress Note: A&P Assessment and Plan (1) Dysphagia: Qualifiers: Dysphagia type: unspecified Qualified Code(s): R13.10 - Dysphagia, unspecified Code(s): R13.10 - Dysphagia, unspecified Status: Acute Assessment and Plan: Patient reports for the last few months she has been feeling there is something the back of her throat and she sometimes has problems swallowing food and liquids. EGD showed normal esophagus with no etiology of cause of dysphagia. Did find a gastric ulcer for which will be treated with PPI BID and avoid NSAIDS. Repeat EGD in 3 months to reassess healing of gastric ulcer. Colonoscopy showed colon polyps, diverticulosis, internal hemorrhoids. I am concerned with the patients 70 lb weight loss over the last few months and continued symptoms of dysphagia without any source of obstruction/etiology found on her EGD. Will plan for further evaluation with Speech Therapy Bedside Swallow evaluation, Barium swallow to monitor for any dysmotility of her esophagus and a MRI to rule out any underlying MS vs CVA and could this be initial symptoms of ALS. Will also consult Neurology for further evaluation and examination. Continue monitoring patient's symptoms (2) Unintentional weight loss: Code(s): R63.4 - Abnormal weight loss Status: Acute Assessment and Plan: History concerning for underlying malignancy versus peptic ulcer verses esophageal stricture. Did not find any abnormality on EGD or colonoscopy. CT chest abdomen pelvis showed no acute abnormality other than mild emphysema changes to lungs. Still concerned about dysphagia and weight loss of 70 lbs. Will preform further work up and evaluation prior to discharge. Continue monitoring patient's symptoms and will wait for EGD before further evaluation workup is completed. (3) Bacteriuria: Code(s): R82.71 - Bacteriuria Status: Acute Assessment and Plan: Urine culture came back positive for lactobacillus species which is normally a contamination but her growth is greater than 100,000. She does not have leukocytosis, no neutrophil count elevation, and she is asymptomatic. Will have the nurse recheck a catheterized urinalysis with good sterile technique and reflux culture Concerns are that the patient has allergies to penicillins, clindamycin which are the medications usually given to treat this infection. (4) Acute kidney injury: Code(s): N17.9 - Acute kidney failure, unspecified Status: Acute Assessment and Plan: On arrival patient creatinine was found to be 2.0 which is signs of acute kidney injury most likely due to hypovolemia and dehydration and hypoperfusion from hypotension in the setting of diuretic/ARB combination. Creatinine today improved to 0.9. Will discontinue IV fluids Will continue monitoring electrolytes and renal function, urine output and avoid nephrotoxic medications. (5) Syncope: Qualifiers: Syncope type: unspecified Qualified Code(s): R55 - Syncope and collapse Code(s): R55 - Syncope and collapse Status: Acute Assessment and Plan: Patient reports to syncopal episodes in the last 6 weeks along with lightheadedness with positional changes. This could all be secondary to acute dehydration and orthostatic hypotension, but the most concerning part is that yesterday her syncopal episode occurred without any warning. Further cardiac workup will be completed on the patient to rule out another cause to her syncope Echocardiogram showed Left ventricular chamber dimension is normal. Left ventricular systolic function is normal, estimated at 65-70%. There is no increased left ventricular wall thickness.. Left ventricular septal wall motion is normal. The
[2020-05-14] MEDS: DORZOLAMIDE/TIMOLOL OPHTH SOL 10 ML BOTTLE 1 DROP EACH EYE (21:13)
[2020-05-14] MEDS: LATANOPROST 0.005% OP SOLN 2.5 ML BTL 1 DROP EACH EYE (21:13)
[2020-05-14] MEDS: PANTOPRAZOLE 40 MG TABLET PO (21:13)
[2020-05-14] MEDS: SODIUM CHLORIDE 0.9% IV 500 ML IV CONT (22:14)
[2020-05-15 05:26] VITALS: BP 100/51; PULSE 87; RESP 14; TEMP 36.6; O2SAT 100
[2020-05-15 06:30] LABS: Hematocrit 26.8 % (37.0-47.0); Hemoglobin 9.2 g/dL (12.0-15.0); Mean Corpuscular HGB Conc 34.3 g/dl (32-36); Mean Corpuscular Hemoglobin 31.8 pg (26-34); Mean Corpuscular Volume 92.7 fl (80-100); Mean Platelet Volume 9.7 fl (7.4-10.4); Platelet Count Result 204 k/mm3 (150-375); Red Blood Count 2.89 M/mm3 (4.2-5.4); Red Cell Distribution Width 13.7 % (11.5-14.5); White Blood Count 8.6 K/mm3 (4.5-10.0)
[2020-05-15 06:56] LABS: Blood Urea Nitrogen 12 mg/dL (7-17); Calcium 8.7 mg/dL (8.4-10.2); Carbon Dioxide 22 mmol/L (22-30); Chloride 105 mmol/L (98-107); Estimated CRCL calculation 50 ml/min; Estimated Glomerular Filt Rate > 60; Glucose 79 mg/dL (65-105); Magnesium 2.2 mg/dL (1.6-2.3); Potassium 3.4 mmol/L (3.4-5.0); Sodium 132 mmol/L (137-145)
[2020-05-15] MEDS: PANTOPRAZOLE 40 MG TABLET PO ×2 (08:47→20:00)
[2020-05-15] MEDS: ATORVASTATIN 20 MG TABLET PO (08:47)
[2020-05-15] MEDS: POTASSIUM CHLORIDE 20 MEQ TABLET 40 MEQ PO (08:48)
--- NOTE | 2020-05-15 10:48 | WPDANESPN ---
Anes - Prog Note Post-Op Date/Time: 05/15/20 10:48 Cardiovascular status: normal Respiratory status: normal Airway patency: baseline Mental status: baseline Post-Op hydration status: normal Vital Signs: Last Vital Signs Temp 36.6 C 05/15/20 05:26 Pulse 87 05/15/20 05:26 Resp 14 05/15/20 05:26 BP 100/51 L 05/15/20 05:26 Pulse Ox 100 05/15/20 05:26 I/O: Intake & Output 05/14/20 05/15/20 05/15/20 23:59 07:59 15:59 Intake Total 900 100 240 Output Total 1050 Balance -150 100 240 Laboratory Tests 05/15/20 06:00 05/15/20 06:00 05/15/20 05/15/20 06:00 06:00 WBC 8.6 RBC 2.89 L Hgb 9.2 L Hct 26.8 L MCV 92.7 MCH 31.8 MCHC 34.3 RDW 13.7 Plt Count 204 MPV 9.7 Sodium 132 L Potassium 3.4 Chloride 105 Carbon Dioxide 22 BUN 12 Creatinine 0.90 Estim Creat Clear Calc 50 Estimated GFR > 60 Glucose 79 Calcium 8.7 Magnesium 2.2 Microbiology 05/13/20 16:04 Urine Clean Catch Urine Culture - Final Corynebacterium species Post-procedural complaints: none Patient Feedback: Patient satisfied with anesthetic care.
--- NOTE | 2020-05-15 11:31 | WPDGIPROGNO ---
Progress Note: A&P Assessment and Plan (1) Gastric ulcer: Code(s): K25.9 - Gastric ulcer, unspecified as acute or chronic, without hemorrhage or perforation Status: Acute Assessment and Plan: she has been using some ibuprofen at home, I talked to her about it and will discontinue also will need meterman ppi EGD in 3 months to assess for healing Ángela-test was negative for H pylori but pending other biopsies this can explain her nausea no objections by GI to discharge home (2) Dysphagia: Qualifiers: Dysphagia type: unspecified Qualified Code(s): R13.10 - Dysphagia, unspecified Code(s): R13.10 - Dysphagia, unspecified Status: Acute Assessment and Plan: no stricture or rings, only small hiatal hernia esophagram with mild dysmotility (few tertiary contractions) she is tolerating diet (3) Nausea: Code(s): R11.0 - Nausea Status: Acute Assessment and Plan: she is better, now on ppi (4) Colon polyp: Code(s): K63.5 - Polyp of colon Status: Acute (5) NSAID long-term use: Code(s): Z79.1 - meterman (current) use of non-steroidal anti-inflammatories (NSAID) Status: Acute (6) Acute kidney injury: Code(s): N17.9 - Acute kidney failure, unspecified Status: Acute Assessment and Plan: resolved (7) Unintentional weight loss: Code(s): R63.4 - Abnormal weight loss Status: Acute Assessment and Plan: colonoscopy only polyp- repeat in 5 years, no malignancy Subjective Date/time seen: 05/15/20 11:31 Interval history: no new events, tolerating diet. EGD yesterday with large gastric ulcer, small colon polyp Review of Systems Review of Systems: All systems reviewed & are unremarkable except as noted in HPI and below Exam Const: General: comfortable and no acute distress HENMT: General nose exam: Normal nares present Eyes: General: appearance normal, both eyes and all related structures Neck: Neck: no JVD Resp: Auscultation: clear to auscultation bilaterally Cardio: Rate: regular rate Rhythm: regular rhythm GI: Inspection: non-distended GI Palp: Yes Soft to palpation Skin: General skin exam: normal color Neuro: General: gait normal Speech: normal speech Extrem: General: normal to inspection Psych: Mental Status: mental status grossly normal Objective Data Vital Signs Vital Signs: Vital Signs - 24 hr 05/14/20 13:17 05/14/20 13:27 05/14/20 13:37 Temperature Pulse Rate 72 75 77 Respiratory Rate 21 H 18 19 Blood Pressure 91/64 L 124/67 111/76 Pulse Oximetry 100 100 100 05/14/20 13:50 05/14/20 15:00 05/14/20 15:45 Temperature 96.8 F L 96.3 F L Pulse Rate 68 79 Respiratory Rate 18 18 Blood Pressure 117/69 113/76 Pulse Oximetry 100 100 05/14/20 16:00 05/14/20 16:40 05/14/20 16:55 Temperature 97.5 F L 96.6 F L 97.3 F L Pulse Rate Respiratory Rate Blood Pressure Pulse Oximetry 05/14/20 21:21 05/14/20 21:25 05/14/20 23:22 Temperature 97.4 F L 97.8 F Pulse Rate 84 87 84 Respiratory Rate 16 12 16 Blood Pressure 89/50 L 120/75 Pulse Oximetry 100 100 100 05/15/20 05:26 Temperature 97.9 F Pulse Rate 87 Respiratory Rate 14 Blood Pressure 100/51 L Pulse Oximetry 100 Intake/Output Intake/Output: Intake & Output 05/12/20 05/13/20 05/14/20 05/15/20 23:59 23:59 23:59 23:59 Intake Total 3065 2690 2990 340 Output Total 1150 1625 1050 Balance 1915 1065 1940 340 Meds/Results Medications: Active Medications Generic Name Dose Route Start Last Admin Trade Name Yordyq PRN Reason Stop Dose Admin Acetaminophen 650 mg 05/11/20 19:12 Tylenol Tablet PO Q4H PRN Mild Pain (1-3) or Fever Atorvastatin Calcium 20 mg 05/12/20 09:00 05/15/20 08:47 Lipitor PO 20 mg DAILY [facility] Administration Dorzolamide/Timolol 1 drop 05/11/20 23:30 05/14/20 21:13 Cosopt Eye Drops EACH EYE 1 drop [facility] Administra
--- NOTE | 2020-05-15 12:51 | PM.DS ---
DS: Admitting Diagnosis Admitting Diagnosis Admitting Diagnosis: Acute kidney failure, unspecified DS: Discharge Diagnosis Discharge Diagnosis (1) Dysphagia: Qualifiers: Dysphagia type: unspecified Qualified Code(s): R13.10 - Dysphagia, unspecified Code(s): R13.10 - Dysphagia, unspecified Status: Acute Assessment and Plan: Patient reports for the last few months she has been feeling there is something the back of her throat and she sometimes has problems swallowing food and liquids. She is tolerating her diet today. Gastric Ulcer noted on EGD; GI okay with discharge with f/u EGD in 3 months. Barium swallow study yesterday showed mild esophageal dysmotility with a few tertiary contractions; Modified barium swallow today was normal and ST recommended regular diet. MRI brain unremarkable for etiology of symptoms; Neurology consulted and recommended EEG; okay to discharge and perform EEG as an outpatient per Neurology recommendations; follow up as an outpatient. Recommended no driving until EEG is performed/read - patient aware and understands F/u with GI per thier recommendations F/u with PCP after discharge. 70 pound weight loss concerning as well Will continue BID PPI Avoid NSAIDS F/u with Neurology as an outpatient. (2) Unintentional weight loss: Code(s): R63.4 - Abnormal weight loss Status: Acute Assessment and Plan: History concerning for underlying malignancy versus peptic ulcer verses esophageal stricture. No abnormality noted on EGD or colonoscopy. CT chest/Abd unremarkable other than mild emphysema changes and lung nodule Patient to follow up with PCP after discharge (3) Bacteriuria: Code(s): R82.71 - Bacteriuria Status: Acute Assessment and Plan: Repeat UCx grew corynebacterium species; likely colonizer. Denies symptoms today. Will not treat given UCx and asymptomatic F/u with PCP if developing symptoms (4) Acute kidney injury: Code(s): N17.9 - Acute kidney failure, unspecified Status: Acute Assessment and Plan: Cr. 0.90 today; improved/resolved. Likely due to hypovolemia and dehydration and hypoperfusion from hypotension in the setting of diuretic/ARB combination. F/u with PCP as an outpatient. (5) Syncope: Qualifiers: Syncope type: unspecified Qualified Code(s): R55 - Syncope and collapse Code(s): R55 - Syncope and collapse Status: Acute Assessment and Plan: Patient reports syncopal episodes in the last 6 weeks along with lightheadedness with positional changes. This could all be secondary to acute dehydration and orthostatic hypotension. Further cardiac work up proved unremarkable as etiology behind her symptoms. Echo showed normal EF and grade I diastolic dysfunction. Carotid doppler unremarkable. MRI of brain unremarkable. Orthostatic BP unremarkable F/u with PCP and Neurology as outpatient EEG to be performed as an outpatient (6) Hypotension: Qualifiers: Hypotension type: unspecified hypotension type Qualified Code(s): I95.9 - Hypotension, unspecified Code(s): I95.9 - Hypotension, unspecified Status: Acute Assessment and Plan: Presumably due to profound dehydration in the setting of continued antihypertensive use. No history to suggest underlying infection or sepsis. BP 100s today; patient asymptomatic. Will likely hold her losartan/HCTZ until she follow up with her PCP Monitor her BP daily and resume if BP improves (7) Dehydration: Code(s): E86.0 - Dehydration Status: Acute Assessment and Plan: She has had poor oral intake for
[2020-05-15 14:35] VITALS: BP 105/68; PULSE 83; RESP 16; TEMP 36.7; O2SAT 100
--- NOTE | 2020-05-15 15:56 | PM.IMPN ---
Progress Note: A&P Assessment and Plan (1) Discharge planning issues: Code(s): Z02.9 - Encounter for administrative examinations, unspecified Status: Acute Assessment and Plan: Received call from nursing stating that patient was very unsteady when getting her up to be discharged. [place] to be unsafe to discharge at this moment Will put in for PT/OT evaluation Will await further recommendations Likely discharge tomorrow after evaluated Consider home health vs SNF if patient agreeable and pending evaluation from therapy Monitor overnight (2) Gait instability: Code(s): R26.81 - Unsteadiness on feet Status: Acute Assessment and Plan: Please see above a/p PT/OT to be performed tomorrow Await recommendations (3) Dysphagia: Qualifiers: Dysphagia type: unspecified Qualified Code(s): R13.10 - Dysphagia, unspecified Code(s): R13.10 - Dysphagia, unspecified Status: Acute Assessment and Plan: Patient reports for the last few months she has been feeling there is something the back of her throat and she sometimes has problems swallowing food and liquids. She is tolerating her diet today. Gastric Ulcer noted on EGD; GI okay with discharge with f/u EGD in 3 months. Barium swallow study yesterday showed mild esophageal dysmotility with a few tertiary contractions; Modified barium swallow today was normal and ST recommended regular diet. MRI brain unremarkable for etiology of symptoms; Neurology consulted and recommended EEG; okay to discharge and perform EEG as an outpatient per Neurology recommendations; follow up as an outpatient. Recommended no driving until EEG is performed/read - patient aware and understands F/u with GI per thier recommendations F/u with PCP after discharge. 70 pound weight loss concerning as well Will continue BID PPI Avoid NSAIDS F/u with Neurology as an outpatient. (4) Unintentional weight loss: Code(s): R63.4 - Abnormal weight loss Status: Acute Assessment and Plan: History concerning for underlying malignancy versus peptic ulcer verses esophageal stricture. No abnormality noted on EGD or colonoscopy. CT chest/Abd unremarkable other than mild emphysema changes and lung nodule Patient to follow up with PCP after discharge (5) Bacteriuria: Code(s): R82.71 - Bacteriuria Status: Acute Assessment and Plan: Repeat UCx grew corynebacterium species; likely colonizer. Denies symptoms today. Will not treat given UCx and asymptomatic F/u with PCP if developing symptoms (6) Acute kidney injury: Code(s): N17.9 - Acute kidney failure, unspecified Status: Acute Assessment and Plan: Cr. 0.90 today; improved/resolved. Likely due to hypovolemia and dehydration and hypoperfusion from hypotension in the setting of diuretic/ARB combination. F/u with PCP as an outpatient. (7) Syncope: Qualifiers: Syncope type: unspecified Qualified Code(s): R55 - Syncope and collapse Code(s): R55 - Syncope and collapse Status: Acute Assessment and Plan: Patient reports syncopal episodes in the last 6 weeks along with lightheadedness with positional changes. This could all be secondary to acute dehydration and orthostatic hypotension. Further cardiac work up proved unremarkable as etiology behind her symptoms. Echo showed normal EF and grade I diastolic dysfunction. Carotid doppler unremarkable. MRI of brain unremarkable. Orthostatic BP unremarkable F/u with PCP and Neurology as outpatient EEG to be performed as an outpatient (8) Hypotension: Qualifiers:
--- NOTE | 2020-05-15 16:35 | CONS_ITS ---
DATE OF CONSULTATION: 05/14/2020 HISTORY OF PRESENT ILLNESS: A 59-year-old lady has been admitted to the hospital for the complaints of abnormal labs with a history of underlyin. Hypertension. 2. Hyperlipidemia. 3. Glaucoma. 4. Ongoing complaint of anorexia with 70 pounds unintentional weight loss since the beginning of the year along with the nausea, dysphagia, complained of increasing lightheadedness, dizziness, and syncopal episode. She has no history of malignancy with normal mammography in December of 2019. PAST MEDICAL HISTORY: Past history is consistent with glaucoma, hyperlipidemia, hypertension as mentioned before and history of appendectomy, bilateral carpal tunnel release, and . FAMILY HISTORY: Positive for hypercholesterolemia, myocardial infarction, and hypertension. She herself has smoking pack years 7.5 with 15 years of smoking, but at present, former smoker. Does not drink and no substance abuse. MEDICATIONS: Include: 1. Atorvastatin 20 mg daily. 2. Dorzolamide 1 drop h.s. in eye. 3. Ibuprofen 200 q.6 hours p.r.n. 4. Latanoprost 1 drop in eye at night. 5. Losartan with hydrochlorothiazide 1 tablet daily. ALLERGIES: SHE IS ALLERGIC TO CLINDAMYCIN, PENICILLIN, CEPHALEXIN. PHYSICAL EXAMINATION: VITAL SIGNS: Evaluation up until now documented her to be afebrile with pulse 100, respiration 15, blood pressure 57/43, pulse ox 100%. GENERAL: She still is running low blood pressure of 99/71. GENERAL: Revealed her to be awake, alert, cooperative. HEENT: Head normocephalic with no cranial bruit. Ear, nose, throat examination normal. NECK: Supple with no meningeal signs. No lymphadenopathy. No thyromegaly. HEART: Regular with no murmur. LUNGS: Clear to auscultation. ABDOMEN: Soft with normal bowel sounds. SKIN: Normal. NEUROLOGICAL: She is awake, alert, oriented x3. Speech not dysphasic, not dysarthric. Motor examination revealed normal strength and tone. Reflexes symmetrical. Plantars downgoing. LABORATORY DATA: Investigation up until now documented CBC with WBC 11.6, hemoglobin 11.9, platelet count 311. Basic metabolic panel with a low sodium, low potassium, low chloride, elevated BUN with creatinine of 2.0, and glucose of 123, but calcium normal is 9.9. Hepatic enzymes with total bilirubin 0.7, AST 33, ALT 16, alkaline phos 195, albumin 4.1. UA with 2+ protein. Chest x-ray negative. The patient has been documented to have acute kidney injury, multifactorial insult along with hypotension with dehydration and unintentional weight loss with history of hypotension, hyperlipidemia, glaucoma. At this stage, her brain MRI has been done, which reveals no acute or subacute intracranial process. Normal aging brain with mildly relative uniform periventricular white matter hyperintensities, no discrete T2 hyperintense foci. No pericallosal white matter lesion to suggest a mass. She also had a barium swallow x-ray, which documented mild esophageal dysmotility with a few tertiary contraction, otherwise unremarkable. Chest and abdominal CT scan have documented mild emphysema. Cervical spine CT scan showed severe cervical spondylosis with no fracture, dislocation and very mild central canal stenosis, C5-6 and C6-7. Head CT was also done when she was seen in the emergency room, which was negative for the bleed and carotid Doppler study has revealed less than 50% stenosis bilaterally. Echocardiogram is fairly normal. Grade 1 diastolic dysfunction with [id number] mitral valve regurgitation, tricuspid valve regurgitation and left atrial chamber is mildly enlarged. I will obtain the EEG and further recommendation accordingly. FROYLAN ALEJO M.D. DD:
--- NOTE | 2020-05-15 17:56 | PCSTNOTE ---
Please refer to the Modified Barium Swallow Evaluation in the EMR.
[2020-05-15 19:56] VITALS: BP 94/68; PULSE 86; RESP 16; TEMP 36.6; O2SAT 100
[2020-05-15] MEDS: LATANOPROST 0.005% OP SOLN 2.5 ML BTL 1 DROP EACH EYE (20:00)
[2020-05-15] MEDS: DORZOLAMIDE/TIMOLOL OPHTH SOL 10 ML BOTTLE 1 DROP EACH EYE (20:00)
[2020-05-16 04:57] VITALS: BP 92/57; PULSE 91; RESP 16; TEMP 36.6; O2SAT 100
[2020-05-16 06:24] LABS: Hematocrit 24.7 % (37.0-47.0); Hemoglobin 8.5 g/dL (12.0-15.0); Mean Corpuscular HGB Conc 34.4 g/dl (32-36); Mean Corpuscular Hemoglobin 32.1 pg (26-34); Mean Corpuscular Volume 93.2 fl (80-100); Mean Platelet Volume 10.1 fl (7.4-10.4); Platelet Count Result 185 k/mm3 (150-375); Red Blood Count 2.65 M/mm3 (4.2-5.4); White Blood Count 7.3 K/mm3 (4.5-10.0)
[2020-05-16 06:39] LABS: Blood Urea Nitrogen 10 mg/dL (7-17); Calcium 8.4 mg/dL (8.4-10.2); Carbon Dioxide 22 mmol/L (22-30); Chloride 107 mmol/L (98-107); Estimated CRCL calculation 50 ml/min; Estimated Glomerular Filt Rate > 60; Glucose 84 mg/dL (65-105); Magnesium 1.9 mg/dL (1.6-2.3); Potassium 3.7 mmol/L (3.4-5.0); Sodium 130 mmol/L (137-145)
--- NOTE | 2020-05-16 08:00 | NEURO_ITS ---
TEST: ELECTROENCEPHALOGRAM DIAGNOSIS: CONFUSION PATIENT NUMBER: [id number] EEG NUMBER: [id number] RECORDING DATE: 05/16/20 CLINICAL HISTORY: Patient is unable to give much history CONDITION OF RECORDING: Awake, drowsy and sleep EEG DESCRIPTION: Basic resting occipital frequency consists of small amount of poorly organized low voltage 8-9hz alpha mixed with low voltage 6-7hz theta. Bilateral symmetrical sleep activity is seen during sleep. Hyperventilation and photic stimulation were not done. Multiple muscle and movement artifacts are noted throughout the tracing. Nonparoxysmal. Nonfocal. Nonlateralizing. IMPRESSION: No significant abnormalities noted. [facility]
[2020-05-16] MEDS: ATORVASTATIN 20 MG TABLET PO (09:29)
[2020-05-16] MEDS: PANTOPRAZOLE 40 MG TABLET PO (09:29)
[2020-05-16 09:33] VITALS: PULSE 92; RESP 16; O2SAT 100
--- NOTE | 2020-05-16 11:31 | PCNFU ---
Nutrition Follow-Up Complete: Unintended Weight loss as related to Dysphagia as evidenced by reported 70 ibs weight loss since Nov 2019 and poor po intake. Goal: Meet estimated nutritional needs Progressing towards goal. We will continue current goal. Pt current nutrition is Heart Healthy. Nutrition recommendation:Agree Last recorded weight is 65.2 kg. Bowel Motility:+BM reported 05/14 Labs Reviewed: K 3.2,Na 132, Hct 28.8,Hgb 9.9 Meds Noted:Lipitor,Protonix Additional Notes:Patient seen today. She states food has been good, reported intkaes 50-100%. She had no diet questions or concerns at this time-patient instruction attached. EEG today. Nursing states to some low blood pressure this morning so discharge planned for tomorrow. RD will monitor every 5 days.
[2020-05-16 11:37] VITALS: BP 94/60
[2020-05-16] MEDS: SODIUM CHLORIDE 0.9% IV 1,000 ML 999 ML IV CONT (12:25)
[2020-05-16 13:29] LABS: Hematocrit 27.7 % (37.0-47.0); Hemoglobin 9.1 g/dL (12.0-15.0)
[2020-05-16 13:44] LABS: Lactate Dehydrogenase 373 U/L (313-618)
--- NOTE | 2020-05-16 14:02 | PM.DS ---
DS: Admitting Diagnosis Admitting Diagnosis Admitting Diagnosis: Acute kidney failure, unspecified DS: Discharge Diagnosis Discharge Diagnosis (1) Gait instability: Code(s): R26.81 - Unsteadiness on feet Status: Acute Assessment and Plan: PT/OT evaluated patient recommended HH therapy, although patient preferred outpatient therapy PT/OT as outpatient recommended Follow up with PCP D/c today (2) Dysphagia: Qualifiers: Dysphagia type: unspecified Qualified Code(s): R13.10 - Dysphagia, unspecified Code(s): R13.10 - Dysphagia, unspecified Status: Acute Assessment and Plan: Patient reports for the last few months she has been feeling there is something the back of her throat and she sometimes has problems swallowing food and liquids. She is tolerating her diet today. Gastric Ulcer noted on EGD; GI okay with discharge with f/u EGD in 3 months. Barium swallow study yesterday showed mild esophageal dysmotility with a few tertiary contractions; Modified barium swallow today was normal and ST recommended regular diet. MRI brain unremarkable for etiology of symptoms; Neurology consulted and recommended EEG; EEG unremarkable today. F/u with GI per thier recommendations F/u with PCP after discharge. 70 pound weight loss concerning as well Will continue BID PPI Avoid NSAIDS F/u with Neurology as an outpatient. (3) Unintentional weight loss: Code(s): R63.4 - Abnormal weight loss Status: Acute Assessment and Plan: History concerning for underlying malignancy versus peptic ulcer verses esophageal stricture. No abnormality noted on EGD or colonoscopy. CT chest/Abd/pelvis unremarkable other than mild emphysema changes, lung nodules, and uterine fibroid Patient to follow up with PCP after discharge Encouraged adequate PO intake. Possibly limited given her ulcer after speaking with her she tends to stay away from acidic foods given pain, likely from ulcer (4) Bacteriuria: Code(s): R82.71 - Bacteriuria Status: Acute Assessment and Plan: Repeat UCx grew corynebacterium species; likely colonizer. Denies symptoms today. Will not treat given UCx and asymptomatic F/u with PCP if developing symptoms (5) Acute kidney injury: Code(s): N17.9 - Acute kidney failure, unspecified Status: Acute Assessment and Plan: Cr. 0.90 today; improved/resolved. Likely due to hypovolemia and dehydration and hypoperfusion from hypotension in the setting of diuretic/ARB combination. F/u with PCP as an outpatient. Will contiue to hold losartan/HCTZ given hypotension (6) Syncope: Qualifiers: Syncope type: unspecified Qualified Code(s): R55 - Syncope and collapse Code(s): R55 - Syncope and collapse Status: Acute Assessment and Plan: Patient reports syncopal episodes in the last 6 weeks along with lightheadedness with positional changes. This could all be secondary to acute dehydration and orthostatic hypotension. Further cardiac work up proved unremarkable as etiology behind her symptoms. Echo showed normal EF and grade I diastolic dysfunction. Carotid doppler unremarkable. MRI of brain unremarkable. Orthostatic BP unremarkable. EEG unremarkable F/u with PCP and Neurology as outpatient (7) Hypotension: Qualifiers: Hypotension type: unspecified hypotension type Qualified Code(s): I95.9 - Hypotension, unspecified Code(s): I95.9 - Hypotension, unspecified Status: Acute Assessment and Plan: Presumably due to profound dehydration in the setting of continued antihypertensive use. No history to suggest
[2020-05-16 14:11] VITALS: BP 96/67; PULSE 81; RESP 16; TEMP 36.2; O2SAT 99
== END 2020-05-16 16:15 | disposition home or self-care (01) | DRG 384 ==
LOC: ANHED 19:01 → ANHIMU 20:02 → ANH3MED 05-13 17:17
PROVIDERS: Internal Medicine Gastroenterology; Physician Assistant; Admitting Provider Internal Medicine; Emergency Provider Emergency Medicine; PCP Physician Assistant; Visit Provider Family Medicine
PROC: 0DJ08ZZ Inspection of Upper Intestinal Tract, Via Natural or Artificial Opening Endoscopic (ICD-10-PCS; CPT 43235; principal; 2020-05-14 13:15)
DX: K25.9 Gastric ulcer, unspecified as acute or chronic, without hemorrhage or perforation (principal); N17.9 Acute kidney failure, unspecified; E87.1 Hypo-osmolality and hyponatremia; R13.10 Dysphagia, unspecified; R63.4 Abnormal weight loss; R82.71 Bacteriuria; E86.0 Dehydration; I95.1 Orthostatic hypotension; E87.6 Hypokalemia; I10 Essential (primary) hypertension; E78.5 Hyperlipidemia, unspecified; H40.9 Unspecified glaucoma; D64.9 Anemia, unspecified; K44.9 Diaphragmatic hernia without obstruction or gangrene; K29.70 Gastritis, unspecified, without bleeding; K57.30 Diverticulosis of large intestine without perforation or abscess without bleeding; K63.5 Polyp of colon; K64.8 Other hemorrhoids; K64.4 Residual hemorrhoidal skin tags; R26.81 Unsteadiness on feet; Z79.1 Long term (current) use of non-steroidal anti-inflammatories (NSAID); Z87.891 Personal history of nicotine dependence
CPT/HCPCS: 36415; 51701; 70450; 70551; 71046; 71250; 72125; 72192; 74150; 74220; 80048; 80053; 81001; 82533; 83605; 83615; 83690; 83735; 84100; 84439; 84443; 84480; 85014; 85018; 85025; 85027; 87081; 87086; 87088; 88305; 92611; 93306; 93880; 95816; 96360; 96361; 97162; 97165; 99285; A9270; G0378; J2001; J2405; J2704; J3475; J3480; J7030; J7040; J7120

== ENCOUNTER 2020-07-09 16:02 | Outpatient (CLI) | payer BC, SELFPAY ==
[2020-07-09 16:21] LABS: Basophils Percent Auto 0.4 % (0.2-1.2); Eosinophils Absolute Auto 0.1 K/mm3 (0-0.3); Eosinophils Percent Auto 1.4 % (0-4.4); Hematocrit 33.8 % (37.0-47.0); Hemoglobin 11.2 g/dL (12.0-15.0); Immature Granulocyte Absolute 0.02 K/mm3 (0.00-0.031); Immature Granulocyte Percent A 0.2 % (0-0.5); Lymphocytes Absolute Auto 2.14 K/mm3 (0.9-3.2); Lymphocytes Percent Auto 23.4 % (18.3-44.2); Mean Corpuscular HGB Conc 33.1 g/dl (32-36); Mean Corpuscular Hemoglobin 32.3 pg (26-34); Mean Corpuscular Volume 97.4 fl (80-100); Mean Platelet Volume 10.2 fl (7.4-10.4); Monocytes Absolute Auto 0.7 K/mm3 (0.1-0.6); Monocytes Percent Auto 7.1 % (2.6-8.5); Neutrophils Absolute Auto 6.2 K/mm3 (1.3-6.7); Neutrophils Percent Auto 67.5 % (45.5-73.1); Platelet Count Result 342 k/mm3 (150-375); Red Blood Count 3.47 M/mm3 (4.2-5.4); Red Cell Distribution Width 14.4 % (11.5-14.5); White Blood Count 9.2 K/mm3 (4.5-10.0)
[2020-07-09 18:42] LABS: Alanine Aminotransferase 8 U/L (4-35); Albumin Level 3.2 g/dL (3.5-5.1); Alkaline Phosphatase 147 U/L (38-126); Anion Gap 8 mmol/L (8-16); Aspartate Amino Transferase 22 U/L (14-36); Bilirubin,Total 0.2 mg/dL (0.2-1.3); Blood Urea Nitrogen 12 mg/dL (7-17); Calcium 9.1 mg/dL (8.4-10.2); Carbon Dioxide 21 mmol/L (22-30); Chloride 108 mmol/L (98-107); Estimated Glomerular Filt Rate > 60; Glucose 100 mg/dL (65-105); Potassium 3.6 mmol/L (3.4-5.0); Sodium 137 mmol/L (137-145)
[2020-07-09 18:42] LABS: Iron 51 ug/dL (37-170)
[2020-07-09 18:52] LABS: Percent Iron Saturation 24 % (20-50)
[2020-07-09 20:22] LABS: Lactate Dehydrogenase < 200 U/L (313-618)
[2020-07-12 22:59] LABS: Albumin 2.8 g/dL (3.8-4.8); Alpha 1 Globulin 0.5 g/dL (0.2-0.3); Alpha 2 Globulin 0.8 g/dL (0.5-0.9); Beta 1 Globulin 0.4 g/dL (0.4-0.6); Gamma Globulin 0.8 g/dL (0.8-1.7); Protein, Total 5.6 g/dL (6.1-8.1)
[2020-07-14 10:13] LABS: Soluble Transferrin Receptor 1.47 mg/L (0.76-1.76)
== END 2020-07-09 16:03 | disposition home or self-care (01) ==
PROVIDERS: PCP Physician Assistant; Visit Provider Internal Medicine Hematology & Oncology
DX: D64.9 Anemia, unspecified (principal)
CPT/HCPCS: 36415; 80053; 82607; 82728; 83540; 83550; 83615; 84155; 84165; 84238; 84443; 85025; 86334

== ENCOUNTER 2020-10-04 12:52 | Outpatient (CLI) | payer BC, SELFPAY ==
--- NOTE | 2020-10-04 15:00 | NEURO_ITS ---
Impression: # Complains of difficulty in ambulation. # No significant abnormalities noted on nerve conduction study. # Needle/EMG exam revealed generally decreased motor unit potentials with occasional cramps but no fibs or myotonia noted. # Clinical correlation recommended; Higher involvement needs to be ruled out. Nerve Conduction Studies Anti Sensory Summary Table Stim Site NR Peak (ms) P-T Amp (?V) Site1 Site2 Delta-P (ms) Dist (cm) Dao (m/s) Left Median Anti Sensory (2-3nd Digit) Wrist 3.9 3.3 Wrist 2-3nd Digit 3.9 14.0 36 Wrist 4.0 16.4 Wrist 2-3nd Digit 3.9 14.0 36 Right Median Anti Sensory (2-3nd Digit) Wrist 3.8 26.4 Wrist 2-3nd Digit 3.8 14.0 37 Wrist 3.8 16.8 Wrist 2-3nd Digit 3.8 14.0 37 Left Radial Anti Sensory (Base 1st Digit) Wrist 2.4 43.7 Wrist Base 1st Digit 2.4 0.0 Right Radial Anti Sensory (Base 1st Digit) Wrist 3.1 17.3 Wrist Base 1st Digit 3.1 0.0 Left Sup Fibular Anti Sensory (Ant Lat Mall) 14 cm 4.9 12.5 14 cm Ant Lat Mall 4.9 16.0 33 Right Sup Fibular Anti Sensory (Ant Lat Mall) 14 cm 4.0 17.8 14 cm Ant Lat Mall 4.0 16.0 40 Left Sural Anti Sensory (Lat Mall) Calf 4.2 11.9 Calf Lat Mall 4.2 16.0 38 Right Sural Anti Sensory (Lat Mall) Calf 3.4 26.5 Calf Lat Mall 3.4 16.0 47 Left Ulnar Anti Sensory (5th Digit) Wrist 3.2 44.6 Wrist 5th Digit 3.2 14.0 44 Right Ulnar Anti Sensory (5th Digit) Wrist 3.3 21.0 Wrist 5th Digit 3.3 14.0 42 Motor Summary Table Stim Site NR Onset (ms) O-P Amp (mV) Site1 Site2 Delta-0 (ms) Dist (cm) Dao (m/s) Left Median Motor (Abd Poll Brev) Wrist 3.8 1.8 Elbow Wrist 5.3 25.0 47 Elbow 9.1 1.7 Right Median Motor (Abd Poll Brev) Wrist 3.5 2.7 Elbow Wrist 5.4 26.0 48 Elbow 8.9 1.2 Left Peroneal Motor (Vastus Med) Ankle 5.1 0.4 Popit Ankle 8.7 37.0 43 Popit 13.8 0.3 Right Peroneal Motor (Vastus Med) Ankle 4.6 2.1 Popit Ankle 8.6 36.0 42 Popit 13.2 1.4 Left Tibial Motor (Abd Rooney Brev) Ankle 5.2 3.2 Knee Ankle 8.9 38.0 43 Knee 14.1 1.4 Right Tibial Motor (Abd Rooney Brev) Ankle 4.8 2.4 Knee Ankle 10.2 41.0 40 Knee 15.0 1.8 Left Ulnar Motor (Abd Dig Minimi) Wrist 3.2 3.1 A Elbow Wrist 5.2 26.0 50 A Elbow 8.4 2.2 Right Ulnar Motor (Abd Dig Minimi) Wrist 2.5 5.8 A Elbow Wrist 5.2 27.0 52 A Elbow 7.7 4.1 F Wave Studies NR F-Lat (ms) L-R F-Lat (ms) Left Median (Mrkrs) (Abd Poll Brev) 23.06 0.88 Right Median (Mrkrs) (Abd Poll Brev) 22.18 0.88 Left Peroneal (Mrkrs) (EDB) 53.25 0.00 Right Peroneal (Mrkrs) (EDB) 53.25 0.00 Left Tibial (Mrkrs) (Abd Hallucis) 51.13 0.12 Right Tibial (Mrkrs) (Abd Hallucis) 51.01 0.12 Left Ulnar (Mrkrs) (Abd Dig Min) 31.84 0.00 Right Ulnar (Mrkrs) (Abd Dig Min) 31.84 0.00 EMG Side Muscle Nerve Root Ins Act Fibs Amp Dur Recrt Comment Right 1stDorInt Ulnar C8-T1 Nml Nml Nml >12ms Reduced Right Ext Indicis Radial (Post Int) C7-8 Nml Nml Nml Nml Reduced Right Ext Digitorum Radial (Post Int) C7-8 Nml Nml Nml Nml Reduced Right PronatorTeres Median C6-7 Nml Nml Nml Nml Reduced Right BrachioRad Radial C5-6 Nml Nml Nml Nml Nml Right AntTibialis
== END 2020-10-04 12:53 | disposition home or self-care (01) ==
PROVIDERS: PCP Physician Assistant; Visit Provider Psychiatry & Neurology Neurology
DX: R20.2 Paresthesia of skin (principal)
CPT/HCPCS: 95886; 95913

== ENCOUNTER 2020-10-20 01:10 | Outpatient (CLI) | payer BC, SELFPAY ==
[2020-10-21 14:16] LABS: SARS-CoV-2 RNA PCR Negative
== END 2020-10-20 01:11 | disposition home or self-care (01) ==
LOC: ANHCOVIDDT 01:10
PROVIDERS: PCP Physician Assistant; Visit Provider Internal Medicine Gastroenterology
DX: Z01.818 Encounter for other preprocedural examination (principal); Z20.828 Contact with and (suspected) exposure to other viral communicable diseases
CPT/HCPCS: 87635; C9803; U0003

== ENCOUNTER 2020-10-31 08:37 | Outpatient (CLI) | payer BC, SELFPAY ==
--- NOTE | ~2020-10-31 | MR_ITS ---
EXAMINATION: MR cervical spine wo con DATE: 10/31/2020 09:59 INDICATION: Cervical disc disorder with myelopathy, cervical region. TECHNIQUE: Magnetic resonance imaging (MRI) of the cervical spine was performed without intravenous c ontrast. Sequences included sagittal T2-weighted FSE, sagittal T2-weighted FS FSE, sagittal T1-weight ed FSE, axial MERGE, and axial T2-weighted FSE. COMPARISON: CT cervical spine 05/12/2020 FINDINGS: There is kyphosis of cervical spine. There is 2 mm retrolisthesis of C5 on C6 and C6 on C7. Vertebral body heights are normal. There is mildly decreased disc height at C4-C5 and severely decre ased disc height at C5-C6 and C6-C7. The spinal cord signal intensity is normal. The following disc l evels are specifically discussed: C2-C3: The disc does not extend beyond the endplate margin. There is mild right uncovertebral joint o steoarthritis. There is mild bilateral facet joint osteoarthritis. There is mild right neural foramin al stenosis. There is no central canal stenosis. C3-C4: The disc does not extend beyond the endplate margin. There is mild left uncovertebral joint os teoarthritis. There is no facet joint osteoarthritis. There is no neural foraminal stenosis. There is no central canal stenosis. C4-C5: The disc is bulging. There is moderate bilateral uncovertebral joint osteoarthritis. There is mild right and moderate left facet joint osteoarthritis. There is mild left neural foraminal stenosis . There is mild central canal stenosis with ventral indentation of the spinal cord. C5-C6: The disc is bulging. There is severe bilateral uncovertebral joint osteoarthritis. There is mo derate left facet joint osteoarthritis. There is moderate bilateral neural foraminal stenosis. There is mild central canal stenosis with ventral indentation of the spinal cord. C6-C7: The disc is bulging. There is severe bilateral uncovertebral joint osteoarthritis. There is mi ld right and moderate left facet joint osteoarthritis. There is mild right and moderate left neural f oraminal stenosis. There is mild central canal stenosis. C7-T1: The disc does not extend beyond the endplate margin. There is no uncovertebral joint osteoarth ritis. There is severe right and moderate left facet joint osteoarthritis. There is mild right neural foraminal stenosis. There is no central canal stenosis. IMPRESSION: 1. Severe cervical spondylosis, stable from 05/12/2020. Reviewed, dictated and finalized at location A. [employer]
== END 2020-10-31 08:38 | disposition home or self-care (01) ==
PROVIDERS: PCP Physician Assistant; Visit Provider Psychiatry & Neurology Neurology
DX: M50.01 Cervical disc disorder with myelopathy, high cervical region (principal); M47.892 Other spondylosis, cervical region
CPT/HCPCS: 72141

== ENCOUNTER 2021-01-11 16:48 | Outpatient (CLI) | payer BC, SELFPAY ==
[2021-01-11 17:23] LABS: Hematocrit 39.5 % (37.0-47.0); Hemoglobin 12.8 g/dL (12.0-15.0); Mean Corpuscular HGB Conc 32.4 g/dl (32-36); Mean Corpuscular Hemoglobin 29.9 pg (26-34); Mean Corpuscular Volume 92.3 fl (80-100); Mean Platelet Volume 10.4 fl (7.4-10.4); Platelet Count Result 284 k/mm3 (150-375); Red Blood Count 4.28 M/mm3 (4.2-5.4); Red Cell Distribution Width 15.4 % (11.5-14.5); White Blood Count 9.2 K/mm3 (4.5-10.0)
[2021-01-11 17:44] LABS: Alanine Aminotransferase 10 U/L (4-35); Albumin Level 3.9 g/dL (3.5-5.1); Alkaline Phosphatase 107 U/L (38-126); Anion Gap 3 mmol/L (8-16); Aspartate Amino Transferase 22 U/L (14-36); Bilirubin,Total 0.3 mg/dL (0.2-1.3); Blood Urea Nitrogen 18 mg/dL (7-17); Calcium 9.7 mg/dL (8.4-10.2); Carbon Dioxide 29 mmol/L (22-30); Chloride 106 mmol/L (98-107); Estimated Glomerular Filt Rate 56; Glucose 99 mg/dL (65-105); Sodium 138 mmol/L (137-145)
[2021-01-11 18:19] LABS: Free T4 Free Thyroxine 0.87 ng/mL (0.78-2.19)
[2021-01-11 19:09] LABS: Folic Acid > 20.0 ng/mL (2.76->20)
== END 2021-01-11 16:49 | disposition home or self-care (01) ==
LOC: ANHLAB 16:51
PROVIDERS: PCP Physician Assistant; Visit Provider Psychiatry & Neurology Neurology
DX: R41.3 Other amnesia (principal)
CPT/HCPCS: 36415; 80053; 82607; 82746; 84439; 84443; 85027; 86038

== ENCOUNTER 2022-06-19 09:35 | Outpatient (CLI) | payer BC, SELFPAY ==
[2022-06-19 10:00] LABS: Hemoglobin 15.5 g/dL (12.0-15.0); Mean Corpuscular HGB Conc 33.7 g/dl (32-36); Mean Corpuscular Hemoglobin 34.1 pg (26-34); Mean Corpuscular Volume 101.1 fl (80-100); Platelet Count Result 214 k/mm3 (150-375); Red Blood Count 4.55 M/mm3 (4.2-5.4); Red Cell Distribution Width 13.2 % (11.5-14.5); White Blood Count 8.6 K/mm3 (4.5-10.0)
[2022-06-19 10:17] LABS: Alanine Aminotransferase 30 U/L (6-35); Albumin Level 4.3 g/dL (3.5-5.1); Alkaline Phosphatase 106 U/L (38-126); Anion Gap 3 mmol/L (8-16); Aspartate Amino Transferase 47 U/L (14-36); Bilirubin,Total 0.7 mg/dL (0.2-1.3); Blood Urea Nitrogen 19 mg/dL (7-17); Calcium 9.6 mg/dL (8.4-10.2); Carbon Dioxide 29 mmol/L (22-30); Chloride 107 mmol/L (98-107); Estimated Glomerular Filt Rate > 60; Glucose 105 mg/dL (65-110); Potassium 3.8 mmol/L (3.4-5.0); Sodium 139 mmol/L (137-145)
[2022-06-19 10:31] LABS: Iron 250 ug/dL (37-170)
[2022-06-19 10:41] LABS: Percent Iron Saturation 98 % (20-50)
== END 2022-06-19 09:36 | disposition home or self-care (01) ==
LOC: ANHLAB 09:36
PROVIDERS: PCP Physician Assistant; Visit Provider Internal Medicine Hematology & Oncology
DX: E83.110 Hereditary hemochromatosis (principal); D64.9 Anemia, unspecified
CPT/HCPCS: 36415; 80053; 82607; 82728; 83540; 83550; 85027

== ENCOUNTER → 2022-09-11 10:19 | Outpatient (CLI) | payer BC, SELFPAY ==
--- NOTE | ~2022-09-11 | MM_ITS ---
EXAMINATION: MM screening [facility] HISTORY: Screening TECHNIQUE: Craniocaudal and mediolateral oblique 3-D tomosynthesis images were obtained and synthetic 2-D images were generated. CAD analysis was submitted and interpreted. COMPARISON: Comparison to multiple prior studies sequentially, with oldest reviewed study dated 02/2014. BREAST PARENCHYMAL COMPOSITION: There are scattered areas of fibroglandular density. FINDINGS: There are stable bilateral breast asymmetries. There is no evidence of suspicious mass, brandi cification, or architectural distortion to suggest malignancy in either breast. There has been no irish picious interval change. IMPRESSION: 1. No mammographic evidence of malignancy. 2. Recommend routine screening mammography in one year. BI-RADS Category 2: Benign finding(s). Reviewed, dictated and finalized at location A.
== END ==
PROVIDERS: PCP Physician Assistant; Visit Provider Physician Assistant
DX: Z12.31 Encounter for screening mammogram for malignant neoplasm of breast (principal)
CPT/HCPCS: 77063; 77067

== ENCOUNTER 2024-09-20 14:35 | Outpatient (CLI) | payer MEDICARE, SELFPAY ==
[2024-09-20 15:05] LABS: Hematocrit 41.3 % (37.0-47.0); Mean Corpuscular HGB Conc 33.9 g/dl (32-36); Mean Corpuscular Hemoglobin 31.7 pg (26-34); Mean Corpuscular Volume 93.4 fl (80-100); Mean Platelet Volume 10.3 fl (7.4-10.4); Platelet Count Result 201 k/mm3 (150-375); Red Blood Count 4.42 M/mm3 (4.2-5.4); Red Cell Distribution Width 13.2 % (11.5-14.5); White Blood Count 9.5 K/mm3 (4.5-10.0)
[2024-09-20 16:38] LABS: Iron 121 ug/dL (37-170)
[2024-09-20 16:51] LABS: Percent Iron Saturation 40 % (20-50)
== END 2024-09-20 14:36 | disposition home or self-care (01) ==
LOC: ANHLAB 14:37
PROVIDERS: PCP Physician Assistant; Visit Provider Internal Medicine Hematology & Oncology
DX: E83.110 Hereditary hemochromatosis (principal)
CPT/HCPCS: 36415; 82728; 83540; 83550; 85027

== ENCOUNTER 2025-02-24 13:58 | Outpatient (CLI) | payer MEDICARE, SELFPAY ==
--- NOTE | ~2025-02-24 | MM_ITS ---
EXAMINATION: MM screening [facility] w marvin HISTORY: Screening TECHNIQUE: Craniocaudal and mediolateral oblique 3-D tomosynthesis images were obtained and synthetic 2-D images were generated. CAD analysis was submitted and interpreted. COMPARISON: 09/11/2022 and dating back to 01/02/2017 BREAST PARENCHYMAL COMPOSITION: There are scattered areas of fibroglandular density. FINDINGS: Redemonstration of a fibroadenoma within the upper outer right breast, unchanged dating ofelia k to 2016 Punctate and bulky calcifications are detected bilaterally, stable and benign in appearance. Stable parenchymal pattern without suspicious microcalcifications, architectural distortion, discrete masses or significant asymmetry. IMPRESSION: 1. No mammographic evidence of malignancy. 2. Recommend routine screening mammography in one year. BI-RADS Category 2: Benign finding(s). Reviewed, dictated and finalized at location A.
== END 2025-02-24 13:59 | disposition home or self-care (01) ==
LOC: MICIMG 13:58
PROVIDERS: PCP Physician Assistant; Visit Provider Physician Assistant
DX: Z12.31 Encounter for screening mammogram for malignant neoplasm of breast (principal)
CPT/HCPCS: 77063; 77067

== ENCOUNTER 2025-04-25 14:28 | Outpatient (CLI) | payer MEDICARE, SELFPAY ==
--- OUTSIDE RECORDS SUMMARY | 2025-04-25 14:33 | XMS_ITS | Referral Summary ---
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 Name Role Phone Jorge Aduncan Anabel RUIZ Primary Care Pr ovider Encounters Date Type Department Care Team Description 01/26/2025 2:15 PM FACE CLEANER Office Visit [facility] Neurosurgery [address] [place] [address] [place] [address] Franck Cobb NP Subarachnoid hemorrhage (HCC) (Primary Dx) 01/26/2025 11:40 AM FACE CLEANER - 01/26/2025 11:59 PM FACE CLEANER Hospital Encounter [facility] [address] [place] [address] Subarachnoid hemorrhage (HCC); Vascular abnormality of brain Discharge Disposition: Discharge to home or self care from Last 3 Months Allergies Active Allergy Reactions Criticality Noted Date Comments Cephalexin Hives Medium 06/25/2023 Clindamycin Anaphylaxis,Rash High 07/09/2020 Penicillins Anaphylaxis,Unknown High 07/09/2020 Sulfa Hives Medium 06/25/2023 Medications acetaminophen 500 mg capsuleIndicati ons:Pain Administer per tube 1 capsule (500 mg total) every 6 (six) hours as needed for pain Active chlorhexidine (PERIDEX) 0.12 % solution Apply 15 mL to the mouth or throat 2 (two) times a day 03/25/202 4 Active Additional Information Patient not taking.Reported on 01/26/2025 docusate (COLACE) liquid 50 mg/5 mLIndications:c onstipation,Sto ol Softener Administer per tube 10 mL (100 mg total) 2 (two) times a day Active multivitamin with folic acid 400 mcg tablet Administer per tube 1 tablet daily 4 Active senna 1.76 mg/mL syrupIndication s:constipation Administer 5 mL (8.8 mg total) per feeding tube 2 (two) times a day 4 Active Additional Information Patient taking differently: 8.6 mg oral2 times daily, Indications: constipation, Reported on 01/26/2025 sodium chloride (OCEAN) 0.65 % nasal spray Administer 2 sprays into each nostril as needed for congestion 0 4 Active Additional Information Patient not taking.Reported on 01/26/2025 thiamine (VITAMIN B1) 100 mg tablet Administer per tube 1 tablet (100 mg total) daily 4 Active traZODone (DESYREL) 50 mg tablet Administer per tube 1 tablet (50 mg total) nightly 4 Active bisacodyL (DULCOLAX) 10 mg suppositoryIndi cations:constip ation Insert 1 suppository (10 mg total) into the rectum daily as needed for constipation 4 Active midodrine (PROAMATINE) 2.5 mg tablet Take 1 tablet (2.5 mg total) by mouth daily 4 Active azelastine (ASTELIN) 137 mcg (0.1 %) nasal spray Administer 2 sprays into each nostril 2 (two) times a day Active Active Problems Problem Noted Date Diagnosed Date Benign hypertension 01/25/2025 Elevated liver enzymes 01/25/2025 Impaired fasting glucose 01/25/2025 Aphasia 03/16/2024 Essential hypertension 03/16/2024 Chronic hypotension 03/16/2024 Closed skull fracture with intracranial injury 0 03/16/2024 Constipation 03/16/2024 Insomnia 03/16/2024 Vitamin deficiency 03/16/2024 Discharge planning issues 02/15/2024 Assessment & Plan (02/19/2024 2:16 PM CDT): - 02/14: dysphagia, will need definitive enteral access vs improved swallow, PT/OT evaluation - 02/15: PEG tube placement on 02/16, need to tolerate tube feeding again via PEG. Anticipate appropriate for discharge on 02/17 - 02/17: PEG tube placed, trickle tube feedings start on 02/18. Anticipate appropriate for discharge on 02/19 - 02/18: resume tube feeding via PEG tube, anticipate patient appropriate for discharge on 02/19 Alcohol abuse 02/13/2024 Assessment & Plan (02/15/2024 2:03 PM CDT): # Alcohol misuse syndrome - History of EtOH use and complications from use: family reports patient drinks vodka at least 3-4 times a week, likely more, family states patient not honest about alcohol use. Patient had a fall last year causing a humerus fracture thought to be due to ETOH. - 02/06: Fall iso ETOH 283 on arrival to OSH, UDS negative. folate 8.5, B12 416 (both WNL, although after 1 dose of both) 02/06 - 02/12: no signs of DTs or EtOH withdrawal. Now outside of EtOH withdrawal window. - continue folate, thiamine, MVI - Chemical dependency consult [facility] (mild cognitive impairment) 02/13/2024 Overview (02/13/2024): # Mild cognitive impairment # possible early onset Alzheimer's disease # possible Wernicke's encephalopathy/Korsakoff Syndrome # possibly secondary to hereditary hemochromatosis -- family states since hospital admission in 2019 patient has had issue with memory and is normally mildly confused, unable to remember dates or appointments -- thiamine, folate supplementation, multivitamin -- out patient follow up Nicotine dependence 02/13/2024 Assessment & Plan (02/13/2024 4:01 PM CDT): # Nicotine dependence -- family states patient smokes about a pack per day -- 15 pack/year smoking history (0.5 PPD x30 yr) -- provide smoking cessation counseling if mental status improves, nicotine wean per neuro section -- continue nicotine patch 21 daily, wean ordered (end 02/27) Acute pain 02/13/2024 Assessment & Plan (02/15/2024 2:03 PM CDT): - Tylenol 500mg q6h PRN Hemochromatosis 02/13/2024 Assessment & Plan (02/13/2024 3:59 PM CDT): # Hereditary hemochromatosis -- treated with phlebotomy, last 12/07/23 -- holding home aspirin 81 mg daily -- iron profile, ferritin: Iron 28 (LLN 35) Ferritin 150 (wnl) TIBC 208 (LLN 250) Transferrin 13 (LLN 20) -- continue outpatient follow up HLD (hyperlipidemia) 02/13/2024 Overview (02/13/2024): #HLD, chronic - pt previously on atorvastatin, not currently taking - deferring HLD meds at this time - f/u with PCP for HLD management Acute hypoxic respiratory failure 02/13/2024 Assessment & Plan (02/13/2024 4:32 PM CDT): # Acute hypoxic respiratory failure -- patient intubated 02/05 for airway protection -- extubated 02/07 -- maintain SpO2 > 92% -- doing well from a respiratory standpoint Incidental pulmonary nodule 02/13/2024 Assessment & Plan (02/13/2024 4:01 PM CDT): # Incidentally found pulmonary nodule -- 5cm nodule LLL -- high risk (smoking history), < 6 cm, solitary nodule, follow up in 1 year -- f/u as OP with chest CT Dysphagia 02/13/2024 Assessment & Plan (02/19/2024 2:16 PM CDT): 02/05-02/07: pt intubated 02/11: FORENSIC SCIENCE EXAMINER swallow eval w video: recs: Pureed solids, nectar thick liquids, meds crushed w purees, one-to-one assist with meals 02/12: self dc'd Dobhoff overnight, will trial diet today 02/13: inadequate PO on calorie counts, will replace dobhoff and will start supplemental Tfs 02/14: puree diet w/nectar thickened liquids, calorie counts, Tube feeding via dobhoff 02/15: family consented for PEG tube placement, Patient NPO @ midnight 02/17: OR for PEG tube placement. 02/18: PEG position at skin: 2cm. Keep binder in place. [place] POD 0, initiate TFs on POD 1. MBS (02/18): dysphagia I diet, regular thin liquids Maxillary fracture 02/13/2024 Assessment & Plan (02/13/2024 4:10 PM CDT): # left lateral maxillary wall fracture that is non-displaced - 02/06: ENT consult - 02/12: ENT signed off w plan for nonop management and interval follow up PRN non-operative management of this acute facial fracture. The patient should observe nasal precautions: no nose blowing, open mouth sneezing, no straining/heavy lifting >10lbs, stool softeners for bowel movements, ocean nasal spray for moisture, no drinking using straws for at least 3 weeks post-injury. The patient may follow up in [facility] 2 weeks after discharge ([phone]) if any questions or concerns. At risk for malnutrition 02/13/2024 Assessment & Plan (02/14/2024 11:57 AM CDT): 02/11: RD consult for malnutrition assessment; Patient at risk for malnutrition, but does not meet ASPEN criteria for malnutrition. Recommend callorie count, ensure plus, thrive ice creams, and encourage PO intake 02/12: trial diet today, consider replacement of Dobhoff if continues to have poor PO intake - see Dysphagia Transaminitis 02/13/2024 Assessment & Plan (02/13/2024 4:18 PM CDT): # Transaminitis -- AST 114, ALT 64 -- likely secondary to alcohol misuse vs hemochromatosis -- limit tylenol to 2g daily -- avoid hepatotoxic medications as able -- continue to trend LFTs weekly -- hepatitis viral panel NR 02/06: LFTs downtrending, d/c daily CMPs resolved Hip hematoma, left 02/10/2024 Assessment & Plan (02/19/2024 2:17 PM CDT): Stable in size on repeat imaging. Stable H/H. - q24 CBC Trend: Hgb 6.8->1 unit PRBC (on 02/07)-> 8.3->8.4->8.7 02/10 STABLE - Hgb (02/15): 11.5g/dL, 02/16: 11.3 - Hgb (02/18): 11.6g/dL Multiple closed fractures of facial bone 024 Assessment & Plan (02/13/2024 4:31 PM CDT): 02/08 ENT consult: nonoperative, ocean spray nasal spray, nasal precautions. NOTE - OK for nasoenteric tube in RIGHT nares per facial trauma. 02/12 ENT sign-off, recommend non-op management. Nasal precautions: no nose blowing, open mouth sneezing, no straining/heavy lifting >10lbs, stool softeners for bowel movements, ocean nasal spray for moisture, no drinking using straws for at least 3 weeks post-injury. The patient may follow up in [facility] 2 weeks after discharge ([phone]) if any questions or concerns. Laceration of left hand without foreign body Assessment & Plan (02/11/2024 12:38 PM CDT): Repaired by Orthopedic Surgery bedside Keflex x7 days (02/06-02/13) Continue local wound care Subarachnoid hemorrhage 02/07/2024 Assessment & Plan (02/15/2024 2:12 PM CDT): Traumatic LEFT SAH, unstable and expanding on arrival to [facility]. Transferred to NNICU. NNICU & NSGY consult: Q4 neuro checks - repeat CT head (02/06): Stable subarachnoid hemorrhage. - repeat CT head (02/07): No significant change of multi-compartmental intracranial hemorrhage compared to 02/07/2024 at 9:56 AM, most prominently left sylvian fissure/frontoparietal subarachnoid hemorrhage - repeat CT head (02/09): Progressive mild decreased size of left frontal intraparenchymal hemorrhage with unchanged surrounding mass effect resulting in stable 6mm of rightward directed midline shift. No new intracranial hemorrhage, mildly decreased but still extensive left frontoparietal subarachnoid blood products with intraventricular extension of hemorrhage. No hydrocephalus -Keppra x7 days 02/09-02/16 - BI consult, PMR Localized swelling of left lower extremity 11/03 Fracture of humerus 06/26/2023 Abnormal finding on thyroid function test 2022 Raised serum iron 05/14/2022 High serum ferritin 02/12/2022 Cobalamin deficiency 02/11/2022 Depressive disorder 02/11/2022 Gastroesophageal reflux disease 02/11/2022 Chronic anemia 07/09/2020 Immunizations Immunization Administration Dates Next Due Influenza, Unspecified 06/30/2023,11/30/2015 Tdap 02/06/2024 Social History Tobacco Use Types Packs/Day Years Used Date Smoking Tobacco: Some Days Cigarettes Started: 02/06/2024; Last attempted to quit: 1973 Smokeless Tobacco: Never Tobacco Cessation:Ready to Q uit: Yes AUDIT-C Answer Date Recorded Q1: How often do you have a drink containing alcohol? Never 01/26/2025 Q2: How many drinks containi ng alcohol do you have on a typical day when you are drinking? 5 or 6 Q3: How often do you have si x or more drinks on one occasion? Daily or almost daily 01/26/2025 Hunger Vital Sign Answer Date Recorded Within the past 12 months, y ou worried that your food would run out before you got the money to buy more. Never true 05/05/20 24 Within the past 12 months, t he food you bought just didn't last and you didn't have money to get more. Never true 05/05/2024 Personal Safety Answer Date Recorded Have you ever been in or are you currently in a harmful physical or emotional relationship or is someone making you feel afraid or unsafe? Patient unable to answer 02/18/2024 Comments Unknown Sex and Gender Information Value Date Recorded Sex Assigned at Not on file Legal Sex Female 3:55 AM FACE CLEANER Gender Identity Not on file Sexual Orientation Not on file Last Filed Vital Signs Vital Sign Reading Time Taken Comments Blood Pressure 98/68 01/26/2025 2:12 PM FACE CLEANER Pulse 85 01/26/2025 2:12 PM FACE CLEANER Temperature 36.3 C (97.3 F) 05/05/2024 11:38 AM CDT Respiratory Rate 20 05/05/2024 11:38 AM CDT Oxygen Saturation 98% 01/02/2025 2:26 PM FACE CLEANER Inhaled Oxygen Concentration - - Weight 74.2 kg (163 lb 9.6 oz) 01/26/2025 2:12 P M FACE CLEANER Height 165.1 cm (5' 5) 01/26/2025 2:12 PM FACE CLEANER Body Mass Index 27.22 01/26/2025 2:12 PM FACE CLEANER Plan of Treatment Not on file Procedures Procedure Name Priority Date/Time Associated Diagnosis Comments CTA HEAD NECK W WO CONTRAST Schedule Routine, Read Routine (OP Routine) 01/26/2025 12:23 PM FACE CLEANER Subarachnoid hemorrhage (HCC) Vascular abnormality of brain POCT CREATININE - DEVICE Routine 01/26/2025 12:01 PM FACE CLEANER HEPATITIS PANEL, ACUTE Routine 02/07/2024 9:18 AM CDT from Last 3 Months or Most Recently Relevant to Health Maintenance Results * CTA Head Neck W WO Contrast (01/26/2025 12:23 PM FACE CLEANER) Anatomical Region Laterality Modality Head and Neck N/A Computed Tomogra phy 01/26/2025 3:45 PM FACE CLEANER Impressions 01/27/2025 7:57 AM FACE CLEANER 1. No acute intracranial process. Encephalomalacia in the left insula and frontal operculum from prior hemorrhage. 2. Scattered areas of atherosclerosis without significant stenosis. The previous punctate enhancement in the left sylvian fissure on prior exam is not appreciated on today's exam. 3. Incidental 15 mm left thyroid cystic nodule. Recommend follow up of the Incidental thyroid nodule Additional Imaging in 3 Months with ultrasound. Dictated by: Irvin Magdaleno M.D. The radiology attending physician has personally reviewed this study, and had reviewed and/or edited this written report and agrees with it. Electronically signed by: Dimas Cazares M.D. Narrative 01/27/2025 7:57 AM FACE CLEANER EXAMINATION: 1. Computed tomography angiography (CTA) of the head without and with contrast 2. Computed tomography angiography (CTA) of the neck with contrast HISTORY: Prior intracranial hemorrhage after a fall. TECHNIQUE: CT of the head was performed with images acquired from skull base to vertex without intravenous contrast. Computed tomographic angiography was then obtained from the aortic arch to the vertex following the uneventful administration of intravenous contrast. 3D images were generated on a dedicated workstation. Contrast information: 69 mL Optiray-350 COMPARISON: CTA head and neck 02/07/2024, CT head 01/02/2025, 06/30/2024 FINDINGS: HEAD: There is no acute intracranial hemorrhage. There is encephalomalacia in the left insula and frontal operculum from prior hemorrhage with ex vacuo dilatation of the left lateral ventricle. No mass effect or midline shift is present. The graves-white matter differentiation is normal. Partially empty sella. The orbits are normal. The mastoid air cells are normally aerated. There is mucosal thickening in the paranasal sinuses with nodular thickening and aerated secretions in the bilateral maxillary sinuses. No fractures are identified. Multiple subcentimeter calcifications remain present along the falx and the inner table of the left frontal and temporal bones. NECK: There are no pathologically enlarged or architectural abnormal lymph nodes. The muscles of the neck are normal. Fascial planes are preserved and the deep spaces of the neck are normal. The visualized airway is widely patent. 1.5 cm cystic nodule in the inferior aspect of the left thyroid lobe present. The parotid and submandibular glands are normal. Multilevel disc height loss and degenerative endplate spurring present, most prominently at C5-C6 and C6-C7. No high-grade spinal canal stenosis. Dural calcification on the inner aspect of the left lamina at C4 similar to prior study. Imaged portions of the chest demonstrate no acute abnormality. CTA: There is a common origin of the left common carotid and brachiocephalic arteries. There is plaque at the origin of the great vessels without significant stenosis. The innominate artery and both subclavian arteries are normal in course and caliber. The common carotid arteries are normal in course and caliber with scattered plaque at the bilateral carotid bifurcations without significant stenosis. The course and caliber of the internal carotid arteries in the neck are normal. No areas of atherosclerotic narrowing or filling defects are identified. The visualized course and caliber of the internal carotid arteries in the head are normal. No areas of atherosclerotic narrowing or filling defects are identified. The right A1 is hypoplastic. Neither posterior communicating artery is well-visualized. The anterior and middle cerebral arteries are normal. Punctate area of enhancement seen in the left sylvian fissure on prior exam is not seen on this exam. The vertebral arteries are codominant with moderate stenosis of the right vertebral artery origin. The basilar artery is normal. The posterior cerebral arteries are normal. There is no aneurysm or vascular malformation identified. Procedure Note Dimas Cazares MD - 01/27/2025 EXAMINATION: 1. Computed tomography angiography (CTA) of the head without and with contrast 2. Computed tomography angiography (CTA) of the neck with contrast HISTORY: Prior intracranial hemorrhage after a fall. TECHNIQUE: CT of the head was performed with images acquired from skull base to vertex without intravenous contrast. Computed tomographic angiography was then obtained from the aortic arch to the vertex following the uneventful administration of intravenous contrast. 3D images were generated on a dedicated workstation. Contrast information: 69 mL Optiray-350 COMPARISON: CTA head and neck 02/07/2024, CT head 01/02/2025, 06/30/2024 FINDINGS: HEAD: There is no acute intracranial hemorrhage. There is encephalomalacia in the left insula and frontal operculum from prior hemorrhage with ex vacuo dilatation of the left lateral ventricle. No mass effect or midline shift is present. The graves-white matter differentiation is normal. Partially empty sella. The orbits are normal. The mastoid air cells are normally aerated. There is mucosal thickening in the paranasal sinuses with nodular thickening and aerated secretions in the bilateral maxillary sinuses. No fractures are identified. Multiple subcentimeter calcifications remain present along the falx and the inner table of the left frontal and temporal bones. NECK: There are no pathologically enlarged or architectural abnormal lymph nodes. The muscles of the neck are normal. Fascial planes are preserved and the deep spaces of the neck are normal. The visualized airway is widely patent. 1.5 cm cystic nodule in the inferior aspect of the left thyroid lobe present. The parotid and submandibular glands are normal. Multilevel disc height loss and degenerative endplate spurring present, most prominently at C5-C6 and C6-C7. No high-grade spinal canal stenosis. Dural calcification on the inner aspect of the left lamina at C4 similar to prior study. Imaged portions of the chest demonstrate no acute abnormality. CTA: There is a common origin of the left common carotid and brachiocephalic arteries. There is plaque at the origin of the great vessels without significant stenosis. The innominate artery and both subclavian arteries are normal in course and caliber. The common carotid arteries are normal in course and caliber with scattered plaque at the bilateral carotid bifurcations without significant stenosis. The course and caliber of the internal carotid arteries in the neck are normal. No areas of atherosclerotic narrowing or filling defects are identified. The visualized course and caliber of the internal carotid arteries in the head are normal. No areas of atherosclerotic narrowing or filling defects are identified. The right A1 is hypoplastic. Neither posterior communicating artery is well-visualized. The anterior and middle cerebral arteries are normal. Punctate area of enhancement seen in the left sylvian fissure on prior exam is not seen on this exam. The vertebral arteries are codominant with moderate stenosis of the right vertebral artery origin. The basilar artery is normal. The posterior cerebral arteries are normal. There is no aneurysm or vascular malformation identified. IMPRESSION: 1. No acute intracranial process. Encephalomalacia in the left insula and frontal operculum from prior hemorrhage. 2. Scattered areas of atherosclerosis without significant stenosis. The previous punctate enhancement in the left sylvian fissure on prior exam is not appreciated on today's exam. 3. Incidental 15 mm left thyroid cystic nodule. Recommend follow up of the Incidental thyroid nodule Additional Imaging in 3 Months with ultrasound. Dictated by: Irvin Magdaleno M.D. The radiology attending physician has personally reviewed this study, and had reviewed and/or edited this written report and agrees with it. Electronically signed by: Dimas Cazares M.D. Franck Cobb CALCULATION CLERK IMG CT PROCEDURES Final Resu lt * POCT creatinine (01/26/2025 12:01 PM FACE CLEANER) Creatinine POC 1.1 0.6 - 1.1 mg/dL Blood 01/26/2025 12:0 1 PM FACE CLEANER 01/26/2025 12:01 PM FACE CLEANER Franck Cobb CALCULATION CLERK LAB POCT ORDERABLES - DEVICE Final Result [facility] [place] [address] * Hepatitis panel, acute Blood (02/07/2024 9:18 AM CDT) Hep A IgM Nonreactive Nonreactive Hep B core IgM Nonreactive Nonreactive [facility] Hep C Ab Nonreactive Nonreactive [facility] Comment:Antibodies to HCV no t detected. Does NOT exclude the possibility of recent exposure to HCV. Current interpretive data was last revised on 22 HepBsAg Nonreactive Nonreactive [facility] Blood 02/07/2024 9:18 AM CDT 02/07/2024 9:48 AM CDT Kei Amaral MD LAB MICROBIOLOGY - GENERAL ORDERABLES Final Result Performing Organization Address City/[facility] Co de Phone Number [facility] [place] [address] from Last 3 Months or Most Recently Relevant to Health Maintenance Insurance CHOICE PRF [place] Member Subscriber Plan / Payer (Ef fective 2023-Present) Name:Brooklyn Godwin Relation to Subscriber:Self Name:Brooklyn Godwin Payer ID:[id number] (NAIC) Type:UHC MEDICARE Address: [place] [id number] MEDICARE ADVANTAGE Member Subscriber Plan / Payer (Ef fective 2023-Present) Name:Brooklyn Godwin Relation to Subscriber:Self Name:Brooklyn Godwin Payer ID:[id number] (NAIC) Type:UHC MEDICARE Address: [place] [id number] [place] [phone] Advance Directives For more information, please contact: [phone] Documents on File Type Date Recorded Patient Nurse Intern Expl anation ADVANCE DIRECTIVE 02/25/2024 6:50 PM POWER OF CATALYST MANUFACTURING OPERATOR-MEDICAL * Full Code (Latest Code Status on File) Date Activated Date Inactivated Comments 02/07/2024 3:30 AM 02/22/2024 7:54 PM Care Teams Fruit Harvest Machine Operator Relationship Specialty Start Date End Date Anabel Epstein PA PCP - General Physician Plaster Applicator 05/11/20
--- OUTSIDE RECORDS SUMMARY | 2025-04-25 14:33 | XMS_ITS | Data Portability ---
Author Organization [facility], Main Office Address [address] [place] [address] Assessment No assessment recorded. Plan of Treatment Reminders Order Date Submit Date Provider Last Modified By Organization Details Last Modified Time Details Appointments None recorded. Lab lipid panel, serum 2022 023 BRANDON [facility], [address] [facility], [facility], [place], [address], 3 10:22:17 TSH + free T4, serum 2022 023 BRANDON [facility], [address] [place] [address] 2, [place], [address], 3 10:22:16 HbA1c (hemoglobin A1c), blood 2022 023 BRANDON [facility], [address] [place] [address], [facility], [place], [address], 3 10:22:17 BMP, serum or plasma 2022 023 BRANDON [facility], [address] [place] [address], [facility], [place], [address], 3 10:22:17 gamma-gluta myl transferase (ggt), serum 2022 023 [email or web address] 4 [facility], [address] [place] [address], [facility], [place], [address], 3 10:07:43 hepatic function panel, serum 2022 023 BRANDON [facility], [address] [facility], [facility], [place], [address], 3 10:22:17 lipid panel, serum 2022 023 [email or web address] 146 [facility], [address] [facility], [facility], [place], [address], 3 15:13:18 TSH + free T4, serum 2022 023 BRANDON [facility], [address] [place] [address], [facility], [place], [address], 3 09:17:45 HbA1c (hemoglobin A1c), blood 2022 023 [email or web address], [address] [place] [address], [facility], [place], [address], 3 15:13:18 BMP, serum or plasma 2022 023 [email or web address], [address] [place] [address], [facility], [place], [address], 3 15:13:18 gamma-gluta myl transferase (ggt), serum 2022 023 [email or web address], [address] [place] [address], [facility], [place], [address], 3 15:13:50 hepatic function panel, serum 2022 023 [email or web address] 146 [facility], [address] [place] [address], [facility], [place], [address], 3 15:13:50 hepatitis panel (A+B+C), acute, serum 2022 023 [email or web address] 146 [facility], [address] [place] [address], [facility], [place], [address], 3 15:13:18 Referral None recorded. Procedures None recorded. Surgeries None recorded. Imaging MAMMO, screening, digital, bilateral 2022 023 [email or web address] [facility], [address], [place], [address], 4 09:10:11 DEXA 2022 023 [email or web address] [facility], [address], [place], [address], 4 09:10:11 US, duplex, venous, lower extremity, unilateral 2022 023 [email or web address] Not available 4 09:10:11 MAMMO, screening, digital, bilateral 2022 023 [email or web address] [facility], [address], [place], [address], 3 14:14:58 DEXA 2022 023 [email or web address] [facility], [address], [place], [address], 3 14:15:14 Medication Orders pantoprazol e 40 mg tablet,earnestine yed release 2022 023 BRANDON [facility] [address] [facility], [place], [address], 3 09:45:32 Patient TargetsNo targets recorded. Patient InstructionsNo instructions recorded. Reason for Referral None Reported. Results Created Date Observation Date Name Description Value Unit Range Abnormal Flag Note LastModifiedBy Organization Detail LastModifiedTime 05/12/20 22 05/13/2022 ESVIN TIN ferritin 373 NG/mL 15-150 above high normal Not Available [facility] [address] [facility], [place], [address], 05/13/2022 04:36:28 05/12/20 22 05/13/2022 IRON AND TIBC iron bind.cap.(TI BC) <295 ug/dL 250-45 0 Not Available [facility]) [address] [place], [address], 05/13/2022 04:36:28 05/12/20 22 05/13/2022 IRON AND TIBC UIBC <17 ug/dL 118-36 9 below low normal Ricardo ified by repea t clayton sis Not Available [facility]) [address] [place], [address], 05/13/2022 04:36:28 05/12/2005/13/2022 IRON AND TIBC iron 278 ug/dL 27-139 alert high Not Available [facility] [address] [facility] [place], [address], 05/13/2022 04:36:28 05/12/20 22 05/13/2022 IRON AND TIBC iron saturation >94 % 15-55 alert high Not Available [facility]) [address] [place], [address], 05/13/2022 04:36:28 05/12/20 22 05/13/2022 HEPAT IC FUNCT ION PANEL (7) protein, total 6.7 g/dL 6.0-8. 5 Not Available [facility]) [address] [place], [address], 05/13/2022 04:36:27 05/12/20 22 05/13/2022 HEPAT IC FUNCT ION PANEL (7) albumin 4.6 g/dL 3.8-4. 8 Not Available [facility]) [address] [place], [address], 05/13/2022 04:36:27 05/12/20 22 05/13/2022 HEPAT IC FUNCT ION PANEL (7) bilirubin, total 0.7 mg/dL 0.0-1. 2 Not Available [facility] [address] [facility] [place], [address], 05/13/2022 04:36:27 05/12/20 22 05/13/2022 HEPAT IC FUNCT ION PANEL (7) bilirubin, direct 0.17 mg/dL 0.00-0 .40 Not Available [facility] [address] [facility] [place], [address], 05/13/2022 04:36:27 05/12/20 22 05/13/2022 HEPAT IC FUNCT ION PANEL (7) alkaline phosphatase 109 IU/L 44-121 Not Available [facility] [address] [facility] [place], [address], 05/13/2022 04:36:27 05/12/20 22 05/13/2022 HEPAT IC FUNCT ION PANEL (7) AST (SGOT) 25 IU/L 0-40 Not Available [facility] [address] [facility] [place], [address], 05/13/2022 04:36:27 05/12/20 22 05/13/2022 HEPAT IC FUNCT ION PANEL (7) ALT (SGPT) 16 IU/L 0-32 Not Available [facility] [address] [facility] [place], [address], 05/13/2022 04:36:27 05/12/20 22 05/13/2022 BASIC METAB OLIC PANEL (8) glucose 96 mg/dL 65-99 Not Available [facility] [address] [place], [address], 05/13/2022 04:36:27 05/12/20 22 05/13/2022 BASIC METAB OLIC PANEL (8) BUN 21 mg/dL 8-27 Not Available [facility] [address] [place], [address], 05/13/2022 04:36:27 05/12/20 22 05/13/2022 BASIC METAB OLIC PANEL (8) creatinine 0.88 mg/dL 0.57-1 .00 Not Available [facility] [address] [facility] [place], [address], 05/13/2022 04:36:27 05/12/20 22 05/13/2022 BASIC METAB OLIC PANEL (8) eGFR 74 mL/mi n/1.7 3 >59 Not Available [facility] [address] [facility] [place], [address], 05/13/2022 04:36:27 05/12/20 22 05/13/2022 BASIC METAB OLIC PANEL (8) BUN/creatini ne ratio 24 12-28 Not Available [facility] [address] [facility], [place], [address], 05/13/2022 04:36:27 05/12/20 22 05/13/2022 BASIC METAB OLIC PANEL (8) sodium 137 mmol/ L 134-14 4 Not Available [facility]) [address] [place], [address], 05/13/2022 04:36:27 05/12/20 22 05/13/2022 BASIC METAB OLIC PANEL (8) potassium 4.8 mmol/ L 3.5-5. 2 Not Available [facility] [address] [place], [address], 05/13/2022 04:36:27 05/12/20 22 05/13/2022 BASIC METAB OLIC PANEL (8) chloride 100 mmol/ L 96-106 Not Available [facility] [address] [place], [address], 05/13/2022 04:36:27 05/12/20 22 05/13/2022 BASIC METAB OLIC PANEL (8) carbon dioxide, total 23 mmol/ L 20-29 Not Available [facility] [address] [facility], [place], [address], 05/13/2022 04:36:27 05/12/20 22 05/13/2022 BASIC METAB OLIC PANEL (8) calcium 9.9 mg/dL 8.7-10 .3 Not Available [facility]) [address] [facility], [place], [address], 05/13/2022 04:36:27 05/12/20 22 05/13/2022 CBC WITH DIFFE RENTI AL/PL ATELE T MCV 99 fL 79-97 above high normal Not Available [facility]) [address] [facility], [place], [address], 05/13/2022 04:36:26 05/12/20 22 05/13/2022 CBC WITH DIFFE RENTI AL/PL ATELE T WBC 7.1 x10e3 /uL 3.4-10 .8 Not Available [facility]) [address] [facility], [place], [address], 05/13/2022 04:36:26 05/12/20 22 05/13/2022 CBC WITH DIFFE RENTI AL/PL ATELE T RBC 4.69 x10e6 /uL 3.77-5 .28 Not Available [facility]) [address] [place], [address], 05/13/2022 04:36:26 05/12/20 22 05/13/2022 CBC WITH DIFFE RENTI AL/PL ATELE T hemoglobin 15.8 g/dL 11.1-1 5.9 Not Available [facility]) [address] [facility], [place], [address], 05/13/2022 04:36:26 05/12/20 22 05/13/2022 CBC WITH DIFFE RENTI AL/PL ATELE T hematocrit 46.4 % 34.0-4 6.6 Not Available [facility]) [address] [place], [address], 05/13/2022 04:36:26 05/12/20 22 05/13/2022 CBC WITH DIFFE RENTI AL/PL ATELE T MCH 33.7 pg 26.6-3 3.0 above high normal Not Available [facility]) [address] [place], [address], 05/13/2022 04:36:26 05/12/20 22 05/13/2022 CBC WITH DIFFE RENTI AL/PL ATELE T MCHC 34.1 g/dL 31.5-3 5.7 Not Available [facility]) [address] [place], [address], 05/13/2022 04:36:26 05/12/20 22 05/13/2022 CBC WITH DIFFE RENTI AL/PL ATELE T RDW 13.2 % 11.7-1 5.4 Not Available [facility]) [address] [place], [address], 05/13/2022 04:36:26 05/12/20 22 05/13/2022 CBC WITH DIFFE RENTI AL/PL ATELE T platelets 188 x10e3 /uL 150-45 0 Not Available [facility] [address] [place], [address], 05/13/2022 04:36:26 05/12/20 22 05/13/2022 CBC WITH DIFFE RENTI AL/PL ATELE T neutrophils 58 % not estab. Not Available [facility]) [address] [place], [address], 05/13/2022 04:36:26 05/12/20 22 05/13/2022 CBC WITH DIFFE RENTI AL/PL ATELE T lymphs 29 % not estab. Not Available [facility]) [address] [place], [address], 05/13/2022 04:36:26 05/12/20 22 05/13/2022 CBC WITH DIFFE RENTI AL/PL ATELE T monocytes 8 % not estab. Not Available [facility]) [address] [place], [address], 05/13/2022 04:36:26 05/12/20 22 05/13/2022 CBC WITH DIFFE RENTI AL/PL ATELE T eos 4 % not estab. Not Available [facility]) [address] [facility], [place], [address], 05/13/2022 04:36:26 05/12/20 22 05/13/2022 CBC WITH DIFFE RENTI AL/PL ATELE T basos 1 % not estab. Not Available [facility]) [address] [place], [address], 05/13/2022 04:36:26 05/12/20 22 05/13/2022 CBC WITH DIFFE RENTI AL/PL ATELE T immature cells fresh foods technician Not Available [facility] [address] [place], [address], 05/13/2022 04:36:26 05/12/20 22 05/13/2022 CBC WITH DIFFE RENTI AL/PL ATELE T neutrophils (absolute) 4.1 x10e3 /uL 1.4-7. 0 Not Available [facility]) [address] [place], [address], 05/13/2022 04:36:26 05/12/20 22 05/13/2022 CBC WITH DIFFE RENTI AL/PL ATELE T lymphs (absolute) 2.1 x10e3 /uL 0.7-3. 1 Not Available [facility]) [address] [facility], [place], [address], 05/13/2022 04:36:26 05/12/20 22 05/13/2022 CBC WITH DIFFE RENTI AL/PL ATELE T monocytes(ab solute) 0.5 x10e3 /uL 0.1-0. 9 Not Available [facility]) [address] [facility], [place], [address], 05/13/2022 04:36:26 05/12/20 22 05/13/2022 CBC WITH DIFFE RENTI AL/PL ATELE T eos (absolute) 0.3 x10e3 /uL 0.0-0. 4 Not Available [facility] [address] [facility], [place], [address], 05/13/2022 04:36:26 05/12/20 22 05/13/2022 CBC WITH DIFFE RENTI AL/PL ATELE T baso (absolute) 0.1 x10e3 /uL 0.0-0. 2 Not Available [facility]) [address] [facility], [place], [address], 05/13/2022 04:36:26 05/12/20 22 05/13/2022 CBC WITH DIFFE RENTI AL/PL ATELE T immature granulocytes 0 % not estab. Not Available [facility]) [address] [facility], [place], [address], 05/13/2022 04:36:26 05/12/20 22 05/13/2022 CBC WITH DIFFE RENTI AL/PL ATELE T immature grans (abs) 0.0 x10e3 /uL 0.0-0. 1 Not Available [facility] [address] [facility], [place], [address], 05/13/2022 04:36:26 05/12/20 22 05/13/2022 CBC WITH DIFFE RENTI AL/PL ATELE T NRBC fresh foods technician Not Available [facility]) [address], [place], [address], 05/13/2022 04:36:26 05/12/20 22 05/13/2022 CBC WITH DIFFE RENMALCOM AL/PL ATELE T hematology comments: fresh foods technician Not Available [facility] [address] [facility], [place], [address], 05/13/2022 04:36:26 09/11/20 22 09/11/2022 MAMMO , scree brunilda, digit al, bilat eral No observ ation record ed. [id number] [facility] ([facility]) [address], [place], [address], 01/28/2023 01:07:20 Result Notes None recorded. Problems Name Problem SNOMED Code Status Onset Date Resolution Date Notes Provider Name and Address Organization Details Recorded Time Benign hypertensi on 51142183 Active Not Available [facility] 3 00:58:15 Serum iron above reference range 243995166 Active 2021 Not Available [facility] 3 00:58:15 Mammograph y abnormal 580998004 Active Not Available [facility] 3 00:58:15 Cobalamin deficiency 797517129 Active 2021 Not Available [facility] 3 00:58:15 Gastroesop hageal reflux disease 593632938 Active 2021 Not Available [facility] 3 00:58:15 Anemia 756783286 Active 2021 Not Available [facility] 3 00:58:15 Depressive disorder 24414352 Active 2021 Not Available [facility] 3 00:58:15 Serum ferritin above reference range 973551258 Active 2021 Not Available [facility] 3 00:58:15 Impaired fasting glycemia 068190178 Active Not Available [facility] 3 00:58:15 Hyperlipid emia 89893891 Active Not Available [facility] 3 00:58:15 Liver enzymes level above reference range 823049121 Active Not Available [facility] 3 00:58:15 Thyroid function tests abnormal 723921148 Active 2022 JOSEPH Crenshaw [address] [facility], [place], [address] , [place] [facility] [employer] 3 11:47:30 Fracture of humerus 68299697 Active 2022 JOSEPH Crenshaw [address] [facility], [address], [place], [address] , [place] [facility] [employer] [facility] 3 17:21:22 Localized swelling of left lower limb 2936993539473 9101 Active 2022 JOSEPH Crenshaw [address] [facility], [address], [place], [address] , [employer] [facility] 3 14:53:51 Problem Notes None recorded. Procedures Surgical History Date Name Laterality Status Provider Name and Address Organization Details Recorded Time 05/14/20 Date of Last Colonoscopy completed Not Available [facility] 01/28/2023 00:50:45 05/11/20 20 Colonoscopy completed Not Available [facility] 01/29/20 00:50:48 11/30/18 98 Appendectomy completed Not Available [facility] 023 00:50:48 11/30/18 86 section completed Not Available [facility] 11/2022 00:50:48 11/30/18 85 Hernia Repair completed Not Available [facility] 2022 00:50:48 [employer] Surgery completed Not Available [facility] 01/28/2023 00:50:48 other completed Not Available [facility] 11/2022 00:50:48 Imaging Results None recorded. Procedure Notes None recorded. Medical Equipment None Reported. Allergies Allergen ID Allergen Name Allergen Category Reaction Reaction Severity Criticality Documentation Date Start Date Code Code System Note Provider Name and Address Organization Details Recorded Time 1478 Product containin g penicilli n (product) medicatio n anaphylax is Not available Not available 01/28/2023 09988 8001 SNOMED Not Available [facility] 3 01:06:46 1479 clindamyc in Not available anaphylax is Not available Not available 01/28/2023 2582 RxNorm Not Available [facility] 3 01:06:46 Medications Name Sig Start Date Stop Date Status Note LastModified by Organization Details LastModified Time latanoprost 0.005 % eye drops INSTILL 1 DROP INTO BOTH EYES AT BEDTIME active Not Available Not Available No t Available atorvastati n 20 mg tablet TAKE 1 TABLET BY MOUTH EVERY DAY active Not Available Not Available No t Available clindamycin HCl 300 mg capsule TAKE 2 CAPSULES BY MOUTH EVERY 12 HOURS UNTIL GONE 08/07 completed Not Available Not Available Not Available triamcinolo ne acetonide 0.5 % topical cream APPLY A THIN LAYER TO THE arms BY TOPICAL ROUTE 2 TIMES PER DAY active Not Available Not Available No t Available hydrocodone 5 mg-acetamin ophen 325 mg tablet TAKE 1 TABLET BY MOUTH EVERY 6 HOURS NEEDED FOR PAIN OR ACUTE PAIN 11/04 completed Not Available Not Available Not Available thiamine HCl (vitamin B1) 100 mg tablet TAKE 1 TABLET BY MOUTH EVERY DAY 01/30 completed Not Available Not Available Not Available magnesium oxide 400 mg (241.3 mg magnesium) tablet Take 1 tablet every day by oral route. active Not Available Not Available No t Available diazepam 2 mg tablet 09/14 completed Not Available Not Available Not Available pantoprazol e 40 mg tablet,earnestine yed release TAKE 1 TABLET BY MOUTH EVERY DAY active Not Available Not Available No t Available folic acid 1 mg tablet TAKE 1 TABLET BY MOUTH EVERY DAY 01/30 completed Not Available Not Available Not Available dorzolamide 22.3 mg-timolol 6.8 mg/mL eye drops daily 01/30 completed Not Available Not Available Not Available ergocalcife rol (vitamin D2) 1,250 mcg (50,000 unit) capsule TAKE 1 CAPSULE BY MOUTH ONCE a MONTH 05/08 completed Not Available Not Available Not Available azelastine 137 mcg (0.1 %) nasal spray [place] 2 sprays twice a day by intranasa l route. active Not Available Not Available No t Available timolol maleate 0.5 % eye drops 05/08 completed Not Available Not Available Not Available losartan 50 mg-hydrochl orothiazide 12.5 mg tablet TAKE 1 TABLET DAILY 06/04 completed Not Available Not Available Not Available cefdinir 300 mg capsule active Not Available Not Available Not Available dorzolamide 2 % eye drops 05/08 completed Not Available Not Available Not Available Vitamin B12 500 mcg tablet Take 1 tablet every day by oral route. 05/14 completed Not Available Not Available Not Available escitalopra m 10 mg tablet TAKE 1 TABLET BY MOUTH EVERY DAY 08/07 completed Not Available Not Available Not Available moxifloxaci n 0.5 % eye drops INSTILL 1 DROP INTO AFFECTED EYE(S) BY OPHTHALMI C ROUTE 3 TIMES PER DAY 06/03 completed Not Available Not Available Not Available omeprazole magnesium 20 mg tablet,earnestine yed release one tab po bid 02/12 completed Not Available Not Available Not Available nitrofurant oin monohydrate /macrocryst als 100 mg capsule Take 1 capsule every 12 hours by oral route. 06/03 completed Not Available Not Available Not Available Fish Oil daily 05/11 completed Not Available Not Available Not Available brimonidine 0.2 %-timolol 0.5 % eye drops USE 1 DROP IN BOTH EYES TWICE DAILY active Not Available Not Available No t Available Lumigan 0.01 % eye drops 12/19 completed Not Available Not Available Not Available Vitamin B12 daily 05/11 completed Not Available Not Available Not Available Vitals Date Recorded Body mass index (BMI) Body height Oxygen saturation Oxygen saturation in Arterial blood by Pulse oximetry Heart rate Respiratory rate Body temperature Body weight Systolic And Diastolic Provider Name and Address Organization Details Last Updated DateTime 3 26 kg/m2 163.83 cm 96 % 96 % 104 /min 16 /min 97.4 [degF] 56628.2 2 g 142/90 mm[Hg] Not Available [facility] 3 00:55:02 Date Recorded Body height Body temperature Body mass index (BMI) Body weight Respiratory rate Oxygen saturation Oxygen saturation in Arterial blood by Pulse oximetry Heart rate Systolic And Diastolic Provider Name and Address Organization Details Last Updated DateTime 3 163.83 cm 97.8 [degF] 25.3 kg/m2 67598.8 6 g 16 /min 99 % 99 % 103 /min 138/80 mm[Hg] JOSETTE Myles [facility] 3 11:26:12 Date Recorded Body mass index (BMI) Body height Oxygen saturation Oxygen saturation in Arterial blood by Pulse oximetry Heart rate Respiratory rate Body temperature Body weight Systolic And Diastolic Provider Name and Address Organization Details Last Updated DateTime 2 22.9 kg/m2 163.83 cm 97 % 97 % 93 /min 16 /min 97.3 [degF] 59568.4 1 g 120/72 mm[Hg] Not Available [facility] 3 00:55:02 Date Recorded Body mass index (BMI) Body height Oxygen saturation Oxygen saturation in Arterial blood by Pulse oximetry Heart rate Respiratory rate Body temperature Body weight Systolic And Diastolic Provider Name and Address Organization Details Last Updated DateTime 2 24.7 kg/m2 163.83 cm 98 % 98 % 75 /min 16 /min 97.3 [degF] 01573.4 9 g 110/72 mm[Hg] Not Available [facility] 3 00:55:02 Date Recorded Systolic And Diastolic Provider Name and Address Organization Details Last Updated DateTime 11/04/2023 148/80 mm[Hg] JOSEPH Crenshaw [address], [address], [place] [employer] [facility] [employer] 11/04/2023 14:27:54 Date Recorded Body height Body mass index (BMI) Body weight Respiratory rate Oxygen saturation Oxygen saturation in Arterial blood by Pulse oximetry Heart rate Provider Name and Address Organization Details Last Updated DateTime 3 163.83 cm 25.9 kg/m2 93474.6 3 g 16 /min 98 % 98 % 89 /min JOSETTE Myles [facility] 14:22:58 Social History Question Answer Notes LastModified by Organizat ion Details LastModified Time Tobacco Smoking Status Current Every Day Smoker Not Available [facility] 01/28/2023 00:47:51 What Is Your Level Of Caffeine Consumption? None [id number] Information not available 01/28/2023 How Much Tobacco Do You Chew? None [id number] Information not available 01/28/2023 In The 14 Days Before Symptom Onset, Have You Had Close Contact With A Laboratory-confirm ed COVID-19 While That Case Was Ill? No [id number] Information not available 01/28/2023 In The 14 Days Before Symptom Onset, Have You Had Close Contact With A Person Who Is Under Investigation For COVID-19 While That Person Was Ill? No [id number] Information not available 01/28/2023 What Type Of Diet Are You Following? REGULAR [id number] Information not available 01/28/2023 Which Illicit Or Recreational Drugs Have You Used? None [id number] Information not available 01/28/2023 Have There Been Any Changes To Your Family Or Social Situation? No [id number] Information not available 01/28/2023 Are There Any Guns Present In Your Home? No [id number] Information not available 01/28/2023 Do You Use Insect Repellent Routinely? No [id number] Information not available 01/28/2023 What Was The Date Of Your Most Recent Tobacco Screening? 05/08/2021 [id number] Information not available 01/28/2023 What Is Your Relationship Status? [id number] Information not available 01/28/2023 Do You Use Your Seat Belt Or Car Seat Routinely? Yes [id number] Information not available 01/28/2023 Do You Have Smoke And Carbon Monoxide Detectors In Your Home? Yes [id number] Information not available 01/28/2023 At What Age Did You Start Smoking Tobacco? 28 [id number] Information not available 01/28/2023 How Much Tobacco Do You Smoke? 1 PPD [id number] Information not available 01/28/2023 Do You Use Sunscreen Routinely? Yes [id number] Information not available 01/28/2023 Have You Recently Traveled Abroad? No [id number] Information not available 01/28/2023 Do You Have Any Dietary Restrictions? No [id number] Information not available 01/28/2023 Sex: Unknown Functional Status Question Answer Note LastModified by Organizat ion Details LastModified Time Do you use any illicit or recreational drugs? No [id number] Information not available 01/28/2023 Do you or have you ever used any other forms of tobacco or nicotine? No [id number] Information not available 01/28/2023 What is your level of alcohol consumption? None [id number] Information not available 01/28/2023 Do you or have you ever used smokeless tobacco? Never used smokeless tobacco [id number] Information not available 01/28/2023 What is your occupation? [employer] [id number] Information not available 01/28/2023 Do you or have you ever used e-cigarettes or vape? Never used electronic cigarettes [id number] Information not available 01/28/2023 What is your exercise level? Occasional [id number] Information not available 01/28/2023 Mental Status None recorded. Family History Relationship Description Onset Age of this Age Resolved Age Notes LastModified by Organization Details LastModified Time Father History of heart disorder 68 [id number] Not available 01/28/2023 00:50:53 Sister Hypertensive disorder 63 [id number] Not available 01/28/2023 00:50:53 Medical History Condition Response NERVE DISEASE N BLINDNESS N RHEUMATIC FEVER N KIDNEY STONES N BLADDER PROBLEMS N OTHER # 1 N POLIO N LUNG DISEASE/DISORDER N RADIATION / CHEMOTHERAPY N COPD N Other # 2 N BLOOD DISEASES N SURGERY N EAR OR HEARING PROBLEMS N MUMPS N BOWEL PROBLEMS N DEPRESSION (INCLUDING POST ) N STROKE/TIA N ULCERS N BENIGN PROSTATIC HYPERPLASIA N MEASLES N MYOCARDIAL INFARCTION N OBESITY N GERD/NAUSEA N ANEURYSM N URINARY/BLADDER/KIDNEY PROBLEMS N INPATIENT PSYCH CARE N CORONARY ARTERY DISEASE (CAD) N ADDICTION CONCERNS N ENDOMETRIOSIS N Impotence N USE OF BLOOD THINNERS N SKIN PROBLEMS N GASTROINTESTINAL DISORDER N PERIPHERAL VASCULAR DISEASE N MUSCLE,JOINT OR BONE PROBLEMS N GASTROINTESTINAL BLEEDING N BLOOD CLOTS N ASTHMA N CATARACTS N ERECTILE DYSFUNCTION N VARICOSITIES N GI PROBLEMS N Low Testosterone N INFERTILITY N AIDS/HIV N LIVER DISEASE N MALE HYPOGONADISM N HYPERTENSION Y Deficiency N ANXIETY DISORDER N BLOOD TRANSFUSION N ANEMIA/BLOOD DISORDER N CHRONIC EAR INFECTIONS N BRONCHITIS N TUBERCULOSIS N GLAUCOMA N DIVERTICULITIS N SLEEP APNEA N CHICKENPOX N INFECTIOUS DISEASE N HEART ARRHYTHMIA N PROSTATE N INSOMNIA N HIGH CHOLESTEROL / HYPERLIPIDEMIA Y HYPERTHYROIDISM N EYE PROBLEMS Y NEUROLOGICAL PROBLEMS N EDEMA N CHRONIC PAIN SYNDROME N HYPOTHYROIDISM N CAROTID BLOCKAGE N CONSTIPATION N BACK / NECK PROBLEMS N HAVE YOU BEEN HOSPITALIZED OR SEEN IN [facility] IN THE PAST YEAR ? N ATHEROSCLEROSIS N BREAST PROBLEMS N DIALYSIS N ECZEMA N OSTEOPOROSIS N ARTHRITIS N NO SIGNIFICANT PAST MEDICAL HISTORY N APPENDICITIS N DIABETES, TYPE N BAD TEETH N ENT N HEARTBURN / REFLUX N AUTISM SPECTRUM DISORDER (ASD) N HEPATITIS / LIVER DISEASE N PULMONARY DISEASE N GOUT N SLEEP DISORDER N ALZHEIMER'S DISEASE N Brain Problems N HERPES N DEMENTIA N HEADACHES/MIGRAINES N SEIZURES/EPILEPSY N VASCULAR DISEASE N PACEMAKER N Blood Disorder N DIZZINESS N HEART DISEASE/HEART PROBLEMS N KIDNEY DISEASE N MULTIPLE SCLEROSIS N CARDIAC ARRHYTHMIA N CANCER: SPECIFY N ANESTHESIA COMPLICATIONS N ATRIAL FIBRILLATION N Gall Stones N PULMONARY EMBOLISM N AUTOIMMUNE DISEASE N Gynecological History Statement/Question Response Abnormal Pap Y Date of Last Pap 11/30/2014 Date of Last Mammogram 12/31/2019 Date of Last Colonoscopy 05/14/2020 Sexually Active? Y Obstetrics History GPAL:G 2 P 0 0 0 1 Type Value Living 1 Total 2 Immunizations Vaccine Type Date Status Note Provider Nam e and Address Organization Details Recorded Time COVID-19, mRNA, LNP-S, PF, 30 mcg/0.3 mL dose 1 completed Not Available [facility] 01/28/2023 01:06:36 COVID-19, mRNA, LNP-S, PF, 30 mcg/0.3 mL dose 1 completed Not Available [facility] 01/28/2023 01:06:36 influenza, unspecified formulation 6 completed Not Available [facility] 01/28/2023 01:06:36 Past Encounters Encounter ID Performer Location Encounter Start Date Encounter Closed Date Diagnosis/Indication Diagnosis SNOMED-CT Code Diagnosis ICD10 Code Diagnosis Note [id number] JOSEPH Crenshaw [facility] [address] [place] [address] 01/30/2021 00:00:00 02/21/2021 21:54:33 [id number] JOSEPH Crenshaw [facility] [place] [address] [place] [address] 05/08/2021 00:00:00 05/25/2021 11:02:11 [id number] JOSEPH Crenshaw [facility] [place] [address] [facility] [address] [place] [address] 08/07/2021 00:00:00 08/29/2021 21:05:41 [id number] JOSEPH Crenshaw [facility] [place] [address] [place] [address] 11/06/2021 00:00:00 11/28/2021 13:15:07 [id number] JOSEPH Crenshaw [facility] [address] [place] [address] 02/12/2022 00:00:00 02/26/2022 21:42:26 [id number] Jules Bliss MD [facility] [place] [address] [place] [address] 05/14/2022 00:00:00 05/29/2022 14:38:19 [id number] JOSEPH Crenshaw [facility] [place] [address] [place] [address] 09/17/2022 00:00:00 09/27/2022 19:43:14 [id number] JOSEPH Crenshaw [facility] [place] [address] [place] [address] 12/29/2022 00:00:00 12/30/2022 12:34:45 [id number] JOSEPH Crenshaw [facility] [place] [address] [place] [address] 04/21/2023 11:20:27 04/21/2023 12:01:38 Liver enzymes level above reference range [id number] R74.01 liver enzymes have increased on last labs. this is likely due to alcohol usage that family has reported she is consuming. she denies any increased alcohol use. updated labs are due with hepatitis screening panel Benign hypertension 1072 5009 I10 stable off medication . Hyperlipidemia 47575608 E78.5 pt is to be on atorvastat in 20mg daily still. fasting labs due Gastroesop hageal reflux disease 909039348 K21.9 pt has been encouraged to continue PPI therapy. this is off her med list again, despite recommenda tions. Impaired f asting glycemia [id number] R73.01 screening a1c and bmp due Thyroid fu nction tests abnormal 357850123 R94.6 4.150 on TSH last labs. due for repeat . Free t4 was still in range. Screening mammography 24 237858 Z12.31 mammogram due in aug. Postmenopausal state 764 02714 Z78.0 dexa scan due. [id number] JOSEPH Crenshaw [facility] [place] [address] [place] [address] 11/04/2023 14:11:58 11/04/2023 14:58:40 Benign hypertension 14301293 I10 stable off medication . Liver enzy mes level above reference range 478853373 R74.01 liver enzymes have increased on last labs. this is likely due to alcohol usage that family has reported she is consuming. she denies any increased alcohol use. updated labs are due with hepatitis screening panel Hyperlipidemia 63475122 E78.5 pt is to be on atorvastat in 20mg daily still. fasting labs due Gastroesop hageal reflux disease 076214912 K21.9 pt has been encouraged to continue PPI therapy. this is off her med list again, despite recommenda tions. Impaired f asting glycemia 872239988 R73.01 screening a1c and bmp due Thyroid fu nction tests abnormal 315943316 R94.6 4.150 on TSH last labs. due for repeat . Free t4 was still in range. Screening mammography 24 175091 Z12.31 mammogram due Postmenopausal state 764 11957 Z78.0 dexa scan due. Localized swelling of left lower limb [id number] 9888463 R22.42 negative tatum's but some mild swelling in the LLE. send for LLE venous doppler Health Concerns Section Related Observation LastModified by Organization Detai ls LastModified Time None Recorded Concern Status LastModified by Organization Details LastModified Time None Recorded Advance Directives Directive None Recorded Payers Encounter Date Sequence Insurance Name Policy Number Policy Michael Covered Member ID Michael Member ID Guarantor Name 04/21/2023 1 [facility] ([facility] [place] [place] Godwin [id number] Brooklyn Godwin 11/04/2023 1 *SELF PAY* [place] Notes Date Note Type Note Provider Name and Address Organization Details Recorded Time 022 text/h tml Anxiety/DepressionReported bypatient.Quality:symptoms improved Severity:denies suicidal ideations; able to maintain relationships; does not interfere with activities of daily living Context:no major life stressors Modifying Factors:not on anything at the moment for it. Associated Symptoms:denies homicidal ideations; no significant weight gain; no significant weight loss; no visual/auditory hallucinations; no delusions; no shortness of breath; mood good; no anxiety; no crying spells; no panic; no isolation; sleeping well; appetite good; energy good; no apathy; maintaining functionalityHyperlipidemiaReported bypatient.Duration:chronic Control:usually well controlled Current Therapy:currently taking: (atorvastatin 20mg) Compliance:compliant; compliant with diet; exercises Complications:no coronary artery disease; no peripheral artery disease; no cardiovascular disease Risk Factors:hypertension;smokingHypertens ionReported bypatient.Duration:has noted for years Onset/Timing:better Alleviating Factors:medication Self Care:not under emotional stress Associated Symptoms:no shortness of breath; no fatigue; no palpitations; no decline in exercise capacity; no snoringReflux/GERDReported bypatient.Symptomsasymptomatic; no difficulty swallowing; no pain swallowing; no postprandial pain Severity:improving Duration:present 5 or more years Onset/Timing:gone now Context:non-smoker; no drug/alcohol abuse; no drug alcohol withdrawal; not related to food/drink Associated Symptoms:no frequent coughing; no hoarseness; no food getting stuck; no belching/burping; no vomiting; not vomiting blood; no regurgitation; no shortness of breath; no chest pain; no heartburn; no difficulty swallowing; no pain when swallowing; no bad taste; no decreased appetite; no weight loss; no black/tarry stools; no fatigue; no throat pain; no dental erosion; no bloating; no early satiety; no halitosis Not Available [facility] [employer] [facility] 05/29/2022 14:38:19 022 text/h tml Anxiety/DepressionReported bypatient.Quality:symptoms improved Severity:denies suicidal ideations; able to maintain relationships; does not interfere with activities of daily living Duration:stablizing Context:major life stressors(just got ) Modifying Factors:not on anything. Associated Symptoms:denies homicidal ideations; no significant weight gain; no significant weight loss; no visual/auditory hallucinations; no delusions; no shortness of breath; mood good; no anxiety; no crying spells; no panic; no isolation; sleeping well; appetite good; energy good; no apathy; maintaining functionalityHyperlipidemiaReported bypatient.Duration:chronic Control:usually well controlled Current Therapy:currently taking: (atorvastatin 20mg) Compliance:compliant;noncompliant with diet;does not exercise Complications:no coronary artery disease; no peripheral artery disease; no cardiovascular disease Risk Factors:hypertension;smokingHypertens ionReported bypatient.Duration:has noted for years Onset/Timing:better Alleviating Factors:medication Self Care:not under emotional stress Associated Symptoms:no shortness of breath; no fatigue; no palpitations; no decline in exercise capacity; no snoring Not Available [facility] 09/27/2022 19:43:14 023 text/h tml Anxiety/DepressionReported bypatient.Quality:symptoms improved Severity:denies suicidal ideations; able to maintain relationships; does not interfere with activities of daily living Duration:stablizing Onset/Timing:still present Context:no major life stressors Modifying Factors:not on anything. Associated Symptoms:denies homicidal ideations; no significant weight gain; no significant weight loss; no visual/auditory hallucinations; no delusions; no shortness of breath; mood good; no anxiety; no crying spells; no panic; no isolation; sleeping well; appetite good; energy good; no apathy; maintaining functionalityHyperlipidemiaReported bypatient.Duration:chronic Control:usually well controlled Current Therapy:currently taking: (atorvastatin 20mg) Compliance:compliant;noncompliant with diet;does not exercise Complications:no coronary artery disease; no peripheral artery disease; no cardiovascular disease Risk Factors:hypertension;smokingHypertens ionReported bypatient.Duration:has noted for years Onset/Timing:better Alleviating Factors:medication Self Care:not under emotional stress Associated Symptoms:no shortness of breath; no fatigue; no palpitations; no decline in exercise capacity; no snoringReflux/GERDReported bypatient.Symptomsasymptomatic; no difficulty swallowing; no pain swallowing; no postprandial pain Severity:same Duration:present 5 or more years Onset/Timing:gone now Context:non-smoker; no drug/alcohol abuse; no drug alcohol withdrawal; not related to food/drink Alleviating Factors:medication Associated Symptoms:no frequent coughing; no hoarseness; no food getting stuck; no belching/burping; no vomiting; not vomiting blood; no regurgitation; no shortness of breath; no chest pain; no heartburn; no difficulty swallowing; no pain when swallowing; no bad taste; no decreased appetite; no weight loss; no black/tarry stools; no fatigue; no throat pain; no dental erosion; no bloating; no early satiety; no halitosis Not Available [facility] 12/30/2022 12:34:45 023 text/h tml Anxiety/DepressionReported bypatient.Severity:denies suicidal ideations; able to maintain relationships; does not interfere with activities of daily living Duration:symptoms lasting over 2 weeks Onset/Timing:stable Context:no major life stressors Modifying Factors:not on anything right now but doing good. Associated Symptoms:denies homicidal ideations; no significant weight gain; no significant weight loss; no visual/auditory hallucinations; no delusions; no shortness of breathHyperlipidemiaReported bypatient.Duration:chronic Control:usually well controlled Current Therapy:currently taking: (atorvastatin 20mg) Compliance:compliant; exercises;noncompliant with diet Complications:no coronary artery disease; no peripheral artery disease; no cardiovascular disease Risk Factors:hypertension;smokingHypertens ionReported bypatient.Duration:has noted for years Onset/Timing:better Alleviating Factors:medication Associated Symptoms:no shortness of breath; no fatigue; no palpitations; no decline in exercise capacity; no snoringReflux/GERDReported bypatient.Severity:same Duration:present 5 or more years Onset/Timing:gone now Context:non-smoker; no drug/alcohol abuse; no drug alcohol withdrawal; not related to food/drink Associated Symptoms:no frequent coughing; no feeling of fullness/mass in throat; no hoarseness; no food getting stuck; no belching/burping; no vomiting; not vomiting blood; no regurgitation; no shortness of breath; no chest pain; no heartburn; no difficulty swallowing; no pain when swallowing; no bad taste; no decreased appetite; no weight loss; no black/tarry stools; no fatigue; no throat pain JOSEPH Crenshaw [address] [facility], [facility] [address], [place], [address], [facility] [employer] [facility] 04/26/2023 23:19:47 023 text/h tml Anxiety/DepressionReported bypatient.Severity:denies suicidal ideations; able to maintain relationships; does not interfere with activities of daily living Duration:symptoms lasting over 2 weeks Onset/Timing:still present; stable Context:no major life stressors Associated Symptoms:denies homicidal ideations; no significant weight gain; no significant weight loss; no visual/auditory hallucinations; no delusions; no shortness of breathHyperlipidemiaReported bypatient.Duration:chronic Control:usually well controlled; improving; at goal Compliance:compliant;noncompliant with diet;does not exercise Complications:no coronary artery disease; no peripheral artery disease; no cardiovascular disease Risk Factors:hypertension;smokingHypertens ionReported bypatient.Duration:has noted for years Onset/Timing:better Alleviating Factors:medication Associated Symptoms:no shortness of breath; no fatigue; no palpitations; no decline in exercise capacity; no snoringReflux/GERDReported bypatient.Severity:same Duration:present 5 or more years Onset/Timing:gone now Context:non-smoker; no drug/alcohol abuse; no drug alcohol withdrawal; not related to food/drink Associated Symptoms:no frequent coughing; no feeling of fullness/mass in throat; no hoarseness; no food getting stuck; no belching/burping; no vomiting; not vomiting blood; no regurgitation; no shortness of breath; no chest pain; no heartburn; no difficulty swallowing; no pain when swallowing; no bad taste; no decreased appetite; no weight loss; no black/tarry stools; no fatigue; no throat painNotes:She isnt having any problems w/it. and she doesn't want to take medication PPI as ordered. JOSEPH Crenshaw [address], [facility] [address], [place], [address], [facility] [employer] [facility] 11/25/2023 15:40:35 OBGyn Episode No OBEpisode recorded.
--- OUTSIDE RECORDS SUMMARY | 2025-04-25 14:33 | XMS_ITS | Clinical Summary ---
Author Organization [facility] [address] Address [address] [place] [address] Care Team Providers Care Account Installer Name Role Phone OneilAmira mahmoodaquiles RUIZ Primary Care Pr ovider Allergies Active Allergy Reactions Criticality Noted Date Comments Cephalexin Hives Medium 06/25/2023 Clindamycin Anaphylaxis,Rash High 07/09/2020 Penicillins Anaphylaxis,Unknown High 07/09/2020 Sulfa Hives Medium 06/25/2023 Medications acetaminophen 500 mg capsuleIndicati ons:Pain Administer per tube 1 capsule (500 mg total) every 6 (six) hours as needed for pain 4 Active chlorhexidine (PERIDEX) 0.12 % solution Apply 15 mL to the mouth or throat 2 (two) times a day 4 Active Additional Information Patient not taking.Reported on 01/26/2025 docusate (COLACE) liquid 50 mg/5 mLIndications:c onstipation,Sto ol Softener Administer per tube 10 mL (100 mg total) 2 (two) times a day 4 Active multivitamin with folic acid 400 mcg [...] each nostril as needed for congestion 0 Active Additional Information Patient not taking.Reported on 01/26/2025 thiamine (VITAMIN B1) 100 mg tablet Administer per tube 1 tablet (100 mg total) daily Active traZODone (DESYREL) 50 mg tablet Administer per tube 1 tablet (50 mg total) nightly Active bisacodyL (DULCOLAX) 10 mg suppositoryIndi cations:constip ation Insert 1 suppository (10 mg total) into the rectum daily as needed for constipation Active midodrine (PROAMATINE) 2.5 mg tablet Take 1 tablet (2.5 mg total) by mouth daily Active azelastine (ASTELIN) 137 mcg (0.1 %) [...] 2:16 PM CDT): 02/05-02/07: pt intubated 02/11: 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 Keep binder in place. [place] POD 0, initiate TFs on POD 1. [...] post-injury. The patient may follow up in [facility] 2 weeks after discharge ([phone]) if any questions or concerns. At risk [...] post-injury. The patient may follow up in [facility] 2 weeks after discharge ([phone]) if any questions or concerns. Laceration of left hand without foreign body Assessment & Plan (02/11/2024 12:38 PM CDT): Repaired by Orthopedic Surgery bedside Keflex x7 days (02/06-02/13) Continue local wound care Subarachnoid hemorrhage 02/07/2024 Assessment & Plan (02/15/2024 2:12 PM CDT): Traumatic LEFT SAH, unstable and expanding on arrival to [facility]. Transferred to NNICU. NNICU & NSGY [...] Gastroesophageal reflux disease 02/11/2022 Chronic anemia 07/09/2020 Encounters Date Type Department Care Team Description 01/26/2025 2:15 PM GRAIN TRIMMER Office Visit [facility] [address] [facility] [address] [place] [address] [place] [address] Franck Cobb NP Subarachnoid hemorrhage (HCC) (Primary Dx) 01/26/2025 11:40 AM GRAIN TRIMMER - 01/26/2025 11:59 PM GRAIN TRIMMER Hospital Encounter [facility] [address] [place] [address] Subarachnoid hemorrhage (HCC); Vascular abnormality of brain Discharge Disposition: Discharge to home or self care from Last 3 Months Immunizations Immunization Administration Dates Next Due Influenza, [...] on file Legal Sex Female 3:55 AM GRAIN TRIMMER Gender Identity Not on file Sexual Orientation Not on file Obstetrics History Last Filed Vital Signs Vital Sign Reading Time Taken Comments Blood Pressure 98/68 01/26/2025 2:12 PM GRAIN TRIMMER Pulse 85 01/26/2025 2:12 PM GRAIN TRIMMER Temperature 36.3 C (97.3 F) 05/05/2024 11:38 AM CDT Respiratory Rate 20 05/05/2024 11:38 AM CDT Oxygen Saturation 98% 01/02/2025 2:26 PM GRAIN TRIMMER Inhaled Oxygen Concentration - - Weight 74.2 kg (163 lb 9.6 oz) 01/26/2025 2:12 P M GRAIN TRIMMER Height 165.1 cm (5' 5) 01/26/2025 2:12 PM GRAIN TRIMMER Body Mass Index 27.22 01/26/2025 2:12 PM GRAIN TRIMMER Plan of Treatment Health Maintenance Due Date Last Done Comments Breast Cancer Screening-Mammogram 1960 Colon Cancer Screening-Colonoscopy 1960 Depression Screening 1960 Osteoporosis Screening-Bone Density Scan 1958 Hepatitis B Screening 1976 Pneumococcal vaccine 65+ (1 of 2 - PCV) 1977 Zoster Vaccine (1 of 2) 2008 Well Visit 65+ 2023 Covid-19 Vaccine (3 - season) 07/31/202409/2021, 02/14/2021 Fall Risk Assessment 02/21/2025 02/22/2024 Influenza Vaccine (Season Ended) 2025 06/30/20, 11/30/2015 DTaP/Tdap/Td Vaccine (2 - Td or Tdap) 02/05/203407/2024 Hepatitis C Screening Completed 02/07/2024 Procedures Procedure Name Priority Date/Time Associated Diagnosis Comments CTA HEAD NECK W WO CONTRAST Schedule Routine, Read Routine (OP Routine) 01/26/2025 12:23 PM GRAIN TRIMMER Subarachnoid hemorrhage (HCC) Vascular abnormality of brain POCT CREATININE - DEVICE Routine 01/26/2025 12:01 PM GRAIN TRIMMER HEPATITIS PANEL, ACUTE Routine 02/07/2024 9:18 AM CDT from Last 3 Months or Most Recently Relevant to Health Maintenance Results * CTA Head Neck W WO Contrast (01/26/2025 12:23 PM GRAIN TRIMMER) Anatomical Region Laterality Modality Head and Neck N/A Computed Tomogra phy 01/26/2025 3:45 PM GRAIN TRIMMER Impressions 01/27/2025 7:57 AM GRAIN TRIMMER 1. No acute intracranial process. Encephalomalacia in [...] Dimas Cazares M.D. Narrative 01/27/2025 7:57 AM GRAIN TRIMMER EXAMINATION: 1. Computed tomography angiography (CTA) of [...] signed by: Dimas Cazares M.D. Franck Cobb BENCH TECHNICIAN IMG CT PROCEDURES Final Resu lt * POCT creatinine (01/26/2025 12:01 PM GRAIN TRIMMER) Pathologist [facility] Creatinine POC 1.1 0.6 - 1.1 mg/dL Blood 01/26/2025 12:0 1 PM GRAIN TRIMMER 01/26/2025 12:01 PM GRAIN TRIMMER Result [facility] Franck Cobb NP LAB POCT ORDERABLES - DEVICE Final Result Performing Organization Address City/[facility] Co de Phone Number [facility] [place] [address] * Hepatitis panel, acute Blood (02/07/2024 9:18 AM CDT) [facility] Hep A IgM Nonreactive Nonreactive Hep B core IgM Nonreactive Nonreactive [facility] Hep C Ab Nonreactive Nonreactive [facility] Comment:Antibodies to HCV no t detected. Does NOT exclude the possibility of recent exposure to HCV. Current interpretive data was last revised on 22 HepBsAg Nonreactive Nonreactive [facility] Blood 02/07/2024 9:18 AM CDT 02/07/2024 9:48 AM CDT Kei Amaral MD LAB MICROBIOLOGY - GENERAL ORDERABLES Final Result Performing Organization Address City/[facility]/ZIP Co de Phone Number [facility] Department [place] [address] from Last 3 Months or Most Recently Relevant to Health Maintenance [place] [address] [place] [address] MEDICARE ADVANTAGE [facility] MEDICARE ADVANTAGE Advance Directives For more information, please contact: [phone] Documents on File Type Date Recorded Patient Telecommunications Line Installer Expl anation ADVANCE DIRECTIVE 02/25/2024 6:50 PM POWER OF BUSINESS SYSTEMS MANAGER-MEDICAL * Full Code (Latest Code Status on File) Date Activated Date Inactivated Comments 02/07/2024 3:30 AM 02/22/2024 7:54 PM Care Teams Account Installer Relationship Specialty Start Date End Date Anabel Epstein PA PCP - General Physician Gallery Host 05/11/20
--- OUTSIDE RECORDS SUMMARY | 2025-04-25 14:33 | XMS_ITS | Data Portability ---
Author Organization [facility]EVENMargaretAv[facility] Address [address] [facility] [place] [address] Assessment Encounter Date Assessment Date Assessment LastModified by Organization Details LastModified Time 08/24/2024 08/24/2024 Neurosurgery [place]. CT Brain June 30. Not available 08/24/2024 15:45:25 01/20/2025 01/20/2025 february 24 scheduled mammogram at [facility]. Not available 01/20/2025 15:22:35 Plan of Treatment Reminders Order Date Submit Date Provider Last Modified By Organization Details Last Modified Time Details Appointments ANY 15 2024 03:30P M JOSEPH Crenshaw Not available Not available Not available Lab CBC w/ auto diff 2024 025 [email or web address] [facility], [address] [facility] [facility], [place], [address], 04/05/2025 15:36:05 hepatic function panel, serum 2024 025 BRANDON [facility], [address] [facility], [facility], [place], [address], 03/31/2025 07:13:33 BMP, serum or plasma 2024 025 BRANDON [facility], [address] [facility], [facility], [place], [address], 03/31/2025 07:13:34 TSH + free T4, serum 2024 025 BRANDON [facility], [address] [facility], [facility], [place], [address], 03/31/2025 07:13:32 lipid panel, serum 2024 025 BRANDON [facility], [address] [place] [address] 2, [place], [address], 03/31/2025 07:13:31 vitamin B12 + folate, serum or blood 2024 025 BRANDON [facility], [address] [place] [address] 2, [place], [address], 03/31/2025 07:13:35 CBC w/ auto diff 2023 024 BRANDON [facility], [address] [place] [address] 2, [place], [address], 08/25/2024 08:29:57 hepatic function panel, serum 2023 024 BRANDON [facility], [address] [place] [address], [place], [address], 08/25/2024 08:29:55 BMP, serum or plasma 2023 024 BRANDON [facility], [address] [place] [address], [place], [address], 08/25/2024 08:29:55 TSH + free T4, serum 2023 024 BRANDON [facility], [address] [place] [address], [place], [address], 08/25/2024 08:29:54 lipid panel, serum 2023 024 BRANDON [facility], [address] [place] [address], [place], [address], 08/25/2024 08:29:54 vitamin B12 + folate, serum or blood 2023 024 BRANDON [facility], [address] [place] [address] 2, [place], [address], 08/25/2024 08:29:56 Referral None recorded. Procedures None recorded. Surgeries None recorded. Imaging MAMMO, screening , digital, bilateral 2023 024 BRANDON [facility], [address] [address], [place], [address], 02/25/2025 11:34:02 Medication Orders None recorded. Patient TargetsNo targets recorded. Patient Instructions Encounter Date Encounter Id Patient Instructions Last Modified By Organization Details Last Modified Time 01/20/2025 [id number] A healthy lifestyle: care instructions Not available 01/31/2025 08:07:54 Reason for Referral None Reported. Results Created Date Observation Date Name Description Value Unit Range Abnormal Flag Note LastModifiedBy Organization Detail LastModifiedTime 08/24/2008/25/2024 TSH+F REE T4 TSH 3.610 uIU/m L 0.450- 4.500 Not Available [facility] ([facility]) [address] [place], [address], 08/25/2024 08:29:53 08/24/2008/25/2024 TSH+F REE T4 T4,free(dire ct) 1.08 NG/dL 0.82-1 .77 Not Available [facility] ([facility]) [address] [place], [address], 08/25/2024 08:29:53 08/24/2008/25/2024 LIPID PANEL cholesterol, total 244 mg/dL 100-19 9 above high normal Not Available [facility] ([facility]) [address] [place], [address], 08/25/2024 08:29:54 08/24/2008/25/2024 LIPID PANEL triglyceride s 143 mg/dL 0-149 Not Available [facility] ([facility]) [address] [place], [address], 08/25/2024 08:29:54 08/24/2008/25/2024 LIPID PANEL HDL cholesterol 55 mg/dL >39 Not Available [facility] ([facility]) [address] [facility] [place], [address], 08/25/2024 08:29:54 08/24/20 24 08/25/2024 LIPID PANEL VLDL cholesterol brandi 26 mg/dL 5-40 Not Available [facility] ([facility]) [address] [facility] [place], [address], 08/25/2024 08:29:54 08/24/20 24 08/25/2024 LIPID PANEL LDL chol calc ([facility]) 163 mg/dL 0-99 above high normal Not Available [facility] ([facility]) [address] [place], [address], 08/25/2024 08:29:54 08/24/20 24 08/25/2024 HEPAT IC FUNCT ION PANEL (7) protein, total 6.6 g/dL 6.0-8. 5 Not Available [facility] ([facility]) [address] [place], [address], 08/25/2024 08:29:55 08/24/20 24 08/25/2024 HEPAT IC FUNCT ION PANEL (7) albumin 4.3 g/dL 3.9-4. 9 Not Available [facility] ([facility]) [address] [place], [address], 08/25/2024 08:29:55 08/24/20 24 08/25/2024 HEPAT IC FUNCT ION PANEL (7) bilirubin, total 0.2 mg/dL 0.0-1. 2 Not Available [facility] ([facility]) [address] [place], [address], 08/25/2024 08:29:55 08/24/20 24 08/25/2024 HEPAT IC FUNCT ION PANEL (7) bilirubin, direct <0.10 mg/dL 0.00-0 .40 Not Available [facility] ([facility]) [address] [place], [address], 08/25/2024 08:29:55 08/24/20 24 08/25/2024 HEPAT IC FUNCT ION PANEL (7) alkaline phosphatase 102 IU/L 44-121 Not Available [facility] ([facility]) [address] [facility] [place], [address], 08/25/2024 08:29:55 08/24/20 24 08/25/2024 HEPAT IC FUNCT ION PANEL (7) AST (SGOT) 18 IU/L 0-40 Not Available [facility] ([facility]) [address] [place], [address], 08/25/2024 08:29:55 08/24/20 24 08/25/2024 HEPAT IC FUNCT ION PANEL (7) ALT (SGPT) 13 IU/L 0-32 Not Available [facility] ([facility]) [address] [place], [address], 08/25/2024 08:29:55 08/24/20 24 08/25/2024 BMP7+ EGFR glucose 91 mg/dL 70-99 Not Available [facility] ([facility]) [address] [place], [address], 08/25/2024 08:29:55 08/24/20 24 08/25/2024 BMP7+ EGFR BUN 22 mg/dL 8-27 Not Available [facility] ([facility]) [address] [place], [address], 08/25/2024 08:29:55 08/24/20 24 08/25/2024 BMP7+ EGFR creatinine 1.12 mg/dL 0.57-1 .00 above high normal Not Available [facility] ([facility]) [address] [place], [address], 08/25/2024 08:29:55 08/24/20 24 08/25/2024 BMP7+ EGFR eGFR 55 mL/mi n/1.7 3 >59 below low normal Not Available [facility] ([facility]) [address] [facility], [place], [address], 08/25/2024 08:29:55 08/24/20 24 08/25/2024 BMP7+ EGFR sodium 139 mmol/ L 134-14 4 Not Available [facility] ([facility]) [address] [facility], [place], [address], 08/25/2024 08:29:55 08/24/20 24 08/25/2024 BMP7+ EGFR potassium 4.8 mmol/ L 3.5-5. 2 Not Available [facility] ([facility]) [address] [facility], [place], [address], 08/25/2024 08:29:55 08/24/20 24 08/25/2024 BMP7+ EGFR chloride 106 mmol/ L 96-106 Not Available [facility] ([facility]) [address] [facility], [place], [address], 08/25/2024 08:29:55 08/24/20 24 08/25/2024 BMP7+ EGFR carbon dioxide, total 19 mmol/ L 20-29 below low normal Not Available [facility] ([facility]) [address] [facility], [place], [address], 08/25/2024 08:29:55 08/24/20 24 08/25/2024 VITAM IN B12 AND FOLAT E vitamin B12 495 pg/mL 232-12 45 Not Available [facility] ([facility]) [address] [place], [address], 08/25/2024 08:29:56 08/24/20 24 08/25/2024 VITAM IN B12 AND FOLAT E folate (folic acid), serum >20.0 NG/mL >3.0 A serum folat e mansoor ntrat ion of less than 3.1 ng/mL is consi dered to repre sent clini brandi defic iency . Not Available [facility] ([facility]) [address] [facility], [place], [address], 08/25/2024 08:29:56 08/24/20 24 08/25/2024 CBC WITH DIFFE RENTI AL/PL ATELE T WBC 8.9 x10e3 /uL 3.4-10 .8 Not Available [facility] ([facility]) [address] [facility], [place], [address], 08/25/2024 08:29:57 08/24/20 24 08/25/2024 CBC WITH DIFFE RENTI AL/PL ATELE T RBC 4.60 x10e6 /uL 3.77-5 .28 Not Available [facility] ([facility]) [address] [facility], [place], [address], 08/25/2024 08:29:57 08/24/20 24 08/25/2024 CBC WITH DIFFE RENTI AL/PL ATELE T hemoglobin 14.4 g/dL 11.1-1 5.9 Not Available [facility] ([facility]) [address] [facility], [place], [address], 08/25/2024 08:29:57 08/24/20 24 08/25/2024 CBC WITH DIFFE RENTI AL/PL ATELE T hematocrit 42.7 % 34.0-4 6.6 Not Available [facility] ([facility]) [address] [facility], [place], [address], 08/25/2024 08:29:57 08/24/2008/25/2024 CBC WITH DIFFE RENTI AL/PL ATELE T MCV 93 fL 79-97 Not Available [facility] ([facility]) [address] [facility], [place], [address], 08/25/2024 08:29:57 08/24/20 24 08/25/2024 CBC WITH DIFFE RENTI AL/PL ATELE T MCH 31.3 pg 26.6-3 3.0 Not Available [facility] ([facility]) [address] [facility], [place], [address], 08/25/2024 08:29:57 08/24/20 24 08/25/2024 CBC WITH DIFFE RENTI AL/PL ATELE T MCHC 33.7 g/dL 31.5-3 5.7 Not Available [facility] ([facility]) [address] [facility], [place], [address], 08/25/2024 08:29:57 08/24/20 24 08/25/2024 CBC WITH DIFFE RENTI AL/PL ATELE T RDW 14.3 % 11.7-1 5.4 Not Available [facility] ([facility]) [address] [facility], [place], [address], 08/25/2024 08:29:57 08/24/20 24 08/25/2024 CBC WITH DIFFE RENTI AL/PL ATELE T platelets 185 x10e3 /uL 150-45 0 Not Available [facility] ([facility]) [address] [facility], [place], [address], 08/25/2024 08:29:57 08/24/20 24 08/25/2024 CBC WITH DIFFE RENTI AL/PL ATELE T neutrophils 60 % notest ab. Not Available [facility] ([facility]) [address] [facility], [place], [address], 08/25/2024 08:29:57 08/24/20 24 08/25/2024 CBC WITH DIFFE RENTI AL/PL ATELE T lymphs 31 % notest ab. Not Available [facility] ([facility]) [address] [place], [address], 08/25/2024 08:29:57 08/24/20 24 08/25/2024 CBC WITH DIFFE RENTI AL/PL ATELE T monocytes 6 % notest ab. Not Available [facility] ([facility]) [address] [facility], [place], [address], 08/25/2024 08:29:57 08/24/20 24 08/25/2024 CBC WITH DIFFE RENTI AL/PL ATELE T eos 3 % notest ab. Not Available [facility] ([facility]) [address] [facility], [place], [address], 08/25/2024 08:29:57 08/24/20 24 08/25/2024 CBC WITH DIFFE RENTI AL/PL ATELE T basos 0 % notest ab. Not Available [facility] ([facility]) [address] [facility], [place], [address], 08/25/2024 08:29:57 08/24/20 24 08/25/2024 CBC WITH DIFFE RENTI AL/PL ATELE T neutrophils (absolute) 5.3 x10e3 /uL 1.4-7. 0 Not Available [facility] ([facility]) [address] [facility], [place], [address], 08/25/2024 08:29:57 08/24/20 24 08/25/2024 CBC WITH DIFFE RENTI AL/PL ATELE T lymphs (absolute) 2.8 x10e3 /uL 0.7-3. 1 Not Available [facility] ([facility]) [address] [place], [address], 08/25/2024 08:29:57 08/24/20 24 08/25/2024 CBC WITH DIFFE RENTI AL/PL ATELE T monocytes(ab solute) 0.6 x10e3 /uL 0.1-0. 9 Not Available [facility] ([facility]) [address] [place], [address], 08/25/2024 08:29:57 08/24/20 24 08/25/2024 CBC WITH DIFFE RENTI AL/PL ATELE T eos (absolute) 0.2 x10e3 /uL 0.0-0. 4 Not Available [facility] ([facility]) [address] [facility], [place], [address], 08/25/2024 08:29:57 08/24/20 24 08/25/2024 CBC WITH DIFFE RENTI AL/PL ATELE T baso (absolute) 0.0 x10e3 /uL 0.0-0. 2 Not Available [facility] ([facility]) [address] [facility], [place], [address], 08/25/2024 08:29:57 08/24/20 24 08/25/2024 CBC WITH DIFFE RENTI AL/PL ATELE T immature granulocytes 0 % notest ab. Not Available [facility] ([facility]) [address] [facility], [place], [address], 08/25/2024 08:29:57 08/24/20 24 08/25/2024 CBC WITH DIFFE RENTI AL/PL ATELE T immature grans (abs) 0.0 x10e3 /uL 0.0-0. 1 Not Available [facility] ([facility]) [address] [facility], [place], [address], 08/25/2024 08:29:57 03/30/20 25 03/31/2025 LIPID PANEL W/ CHOL/ HDL RATIO cholesterol, total 158 mg/dL 100-19 9 Not Available [facility] ([facility]) [address] [place], [address], 03/31/2025 07:13:31 03/30/20 25 03/31/2025 LIPID PANEL W/ CHOL/ HDL RATIO triglyceride s 126 mg/dL 0-149 Not Available [facility] ([facility]) [address] [place], [address], 03/31/2025 07:13:31 03/30/20 25 03/31/2025 LIPID PANEL W/ CHOL/ HDL RATIO HDL cholesterol 50 mg/dL >39 Not Available [facility] ([facility]) [address] [place], [address], 03/31/2025 07:13:31 03/30/2003/31/2025 LIPID PANEL W/ CHOL/ HDL RATIO VLDL cholesterol brandi 22 mg/dL 5-40 Not Available [facility] ([facility]) [address] [place], [address], 03/31/2025 07:13:31 03/30/2003/31/2025 LIPID PANEL W/ CHOL/ HDL RATIO LDL chol calc ([facility]) 86 mg/dL 0-99 Not Available [facility] ([facility]) [address] [place], [address], 03/31/2025 07:13:31 03/30/2003/31/2025 LIPID PANEL W/ CHOL/ HDL RATIO T. chol/HDL ratio 3.2 ratio 0.0-4. 4 T. Chol/ HDL Ratio Men Women 1/2 Avg.R isk 3.4 3.3 Avg.R isk 5.0 4.4 2X Avg.R isk 9.6 7.1 3X Avg.R isk 23.4 11.0 Not Available [facility] ([facility]) [address] [place], [address], 03/31/2025 07:13:31 03/30/2003/31/2025 TSH+F REE T4 TSH 3.890 uIU/m L 0.450- 4.500 Not Available [facility] ([facility]) [address] [place], [address], 03/31/2025 07:13:32 03/30/2003/31/2025 TSH+F REE T4 T4,free(dire ct) 1.21 NG/dL 0.82-1 .77 Not Available [facility] ([facility]) [address] [place], [address], 03/31/2025 07:13:32 03/30/2023 0403/31/2025 HEPAT IC FUNCT ION PANEL (7) protein, total 6.6 g/dL 6.0-8. 5 Not Available [facility] ([facility]) [address] [facility] [place], [address], 03/31/2025 07:13:33 03/30/20 25 03/31/2025 HEPAT IC FUNCT ION PANEL (7) albumin 4.3 g/dL 3.9-4. 9 Not Available [facility] ([facility]) [address] [facility] [place], [address], 03/31/2025 07:13:33 03/30/20 25 03/31/2025 HEPAT IC FUNCT ION PANEL (7) bilirubin, total 0.4 mg/dL 0.0-1. 2 Not Available [facility] ([facility]) [address] [facility] [place], [address], 03/31/2025 07:13:33 03/30/20 25 03/31/2025 HEPAT IC FUNCT ION PANEL (7) bilirubin, direct 0.14 mg/dL 0.00-0 .40 Not Available [facility] ([facility]) [address] [place], [address], 03/31/2025 07:13:33 03/30/20 25 03/31/2025 HEPAT IC FUNCT ION PANEL (7) alkaline phosphatase 108 IU/L 44-121 Not Available [facility] ([facility]) [address] [place], [address], 03/31/2025 07:13:33 03/30/20 25 03/31/2025 HEPAT IC FUNCT ION PANEL (7) AST (SGOT) 20 IU/L 0-40 Not Available [facility] ([facility]) [address] [place], [address], 03/31/2025 07:13:33 03/30/20 25 03/31/2025 HEPAT IC FUNCT ION PANEL (7) ALT (SGPT) 16 IU/L 0-32 Not Available [facility] ([facility]) [address] [facility] [place], [address], 03/31/2025 07:13:33 03/30/20 25 03/31/2025 BMP7+ EGFR glucose 89 mg/dL 70-99 Not Available [facility] ([facility]) [address] [facility] [place], [address], 03/31/2025 07:13:34 03/30/20 25 03/31/2025 BMP7+ EGFR BUN 20 mg/dL 8-27 Not Available [facility] ([facility]) [address] [facility] [place], [address], 03/31/2025 07:13:34 03/30/20 25 03/31/2025 BMP7+ EGFR creatinine 1.06 mg/dL 0.57-1 .00 above high normal Not Available [facility] ([facility]) [address] [facility] [place], [address], 03/31/2025 07:13:34 03/30/20 25 03/31/2025 BMP7+ EGFR eGFR 58 mL/mi n/1.7 3 >59 below low normal Not Available [facility] ([facility]) [address] [facility] [place], [address], 03/31/2025 07:13:34 03/30/20 25 03/31/2025 BMP7+ EGFR sodium 142 mmol/ L 134-14 4 Not Available [facility] ([facility]) [address] [facility] [place], [address], 03/31/2025 07:13:34 03/30/20 25 03/31/2025 BMP7+ EGFR potassium 4.5 mmol/ L 3.5-5. 2 Not Available [facility] ([facility]) [address] [place], [address], 03/31/2025 07:13:34 03/30/20 25 03/31/2025 BMP7+ EGFR chloride 105 mmol/ L 96-106 Not Available [facility] ([facility]) [address] [facility], [place], [address], 03/31/2025 07:13:34 03/30/20 25 03/31/2025 BMP7+ EGFR carbon dioxide, total 23 mmol/ L 20-29 Not Available [facility] ([facility]) [address] [facility], [place], [address], 03/31/2025 07:13:34 03/30/20 25 03/31/2025 VITAM IN B12+F OLATE vitamin B12 468 pg/mL 232-12 45 Not Available [facility] ([facility]) [address] [facility], [place], [address], 03/31/2025 07:13:35 03/30/20 25 03/31/2025 VITAM IN B12+F OLATE folate (folic acid), serum >20.0 NG/mL >3.0 A serum folat e mansoor ntrat ion of less than 3.1 ng/mL is consi dered to repre sent clini brandi defic iency . Not Available [facility] ([facility]) [address] [facility], [place], [address], 03/31/2025 07:13:35 03/30/2003/31/2025 CBC WITH DIFFE RENTI AL/PL ATELE T WBC 7.9 x10e3 /uL 3.4-10 .8 Not Available [facility] ([facility]) [address] [place], [address], 03/31/2025 07:13:36 03/30/20 25 03/31/2025 CBC WITH DIFFE RENTI AL/PL ATELE T RBC 4.73 x10e6 /uL 3.77-5 .28 Not Available [facility] ([facility]) [address] [place], [address], 03/31/2025 07:13:36 03/30/2003/31/2025 CBC WITH DIFFE RENTI AL/PL ATELE T hemoglobin 15.5 g/dL 11.1-1 5.9 Not Available [facility] ([facility]) [address] [facility] [place], [address], 03/31/2025 07:13:36 03/30/2003/31/2025 CBC WITH DIFFE RENTI AL/PL ATELE T hematocrit 46.1 % 34.0-4 6.6 Not Available [facility] ([facility]) [address] [place], [address], 03/31/2025 07:13:36 03/30/2003/31/2025 CBC WITH DIFFE RENTI AL/PL ATELE T MCV 98 fL 79-97 above high normal Not Available [facility] ([facility]) [address] [place], [address], 03/31/2025 07:13:36 03/30/2003/31/2025 CBC WITH DIFFE RENTI AL/PL ATELE T MCH 32.8 pg 26.6-3 3.0 Not Available [facility] ([facility]) [address] [place], [address], 03/31/2025 07:13:36 03/30/2003/31/2025 CBC WITH DIFFE RENTI AL/PL ATELE T MCHC 33.6 g/dL 31.5-3 5.7 Not Available [facility] ([facility]) [address] [place], [address], 03/31/2025 07:13:36 03/30/2003/31/2025 CBC WITH DIFFE RENTI AL/PL ATELE T RDW 12.3 % 11.7-1 5.4 Not Available [facility] ([facility]) [address] [place], [address], 03/31/2025 07:13:36 03/30/20 25 03/31/2025 CBC WITH DIFFE RENTI AL/PL ATELE T platelets 204 x10e3 /uL 150-45 0 Not Available [facility] ([facility]) [address] [facility], [place], [address], 03/31/2025 07:13:36 03/30/20 25 03/31/2025 CBC WITH DIFFE RENTI AL/PL ATELE T neutrophils 58 % notest ab. Not Available [facility] ([facility]) [address] [facility], [place], [address], 03/31/2025 07:13:36 03/30/20 25 03/31/2025 CBC WITH DIFFE RENTI AL/PL ATELE T lymphs 31 % notest ab. Not Available [facility] ([facility]) [address] [facility], [place], [address], 03/31/2025 07:13:36 03/30/20 25 03/31/2025 CBC WITH DIFFE RENTI AL/PL ATELE T monocytes 7 % notest ab. Not Available [facility] ([facility]) [address] [facility], [place], [address], 03/31/2025 07:13:36 03/30/20 25 03/31/2025 CBC WITH DIFFE RENTI AL/PL ATELE T eos 3 % notest ab. Not Available [facility] ([facility]) [address] [facility], [place], [address], 03/31/2025 07:13:36 03/30/20 25 03/31/2025 CBC WITH DIFFE RENTI AL/PL ATELE T basos 1 % notest ab. Not Available [facility] ([facility]) [address] [facility], [place], [address], 03/31/2025 07:13:36 03/30/20 25 03/31/2025 CBC WITH DIFFE RENTI AL/PL ATELE T neutrophils (absolute) 4.6 x10e3 /uL 1.4-7. 0 Not Available [facility] ([facility]) [address] [place], [address], 03/31/2025 07:13:36 03/30/20 25 03/31/2025 CBC WITH DIFFE RENTI AL/PL ATELE T lymphs (absolute) 2.5 x10e3 /uL 0.7-3. 1 Not Available [facility] ([facility]) [address] [facility], [place], [address], 03/31/2025 07:13:36 03/30/2003/31/2025 CBC WITH DIFFE RENTI AL/PL ATELE T monocytes(ab solute) 0.5 x10e3 /uL 0.1-0. 9 Not Available [facility] ([facility]) [address] [facility], [place], [address], 03/31/2025 07:13:36 03/30/20 25 03/31/2025 CBC WITH DIFFE RENTI AL/PL ATELE T eos (absolute) 0.2 x10e3 /uL 0.0-0. 4 Not Available [facility] ([facility]) [address] [facility], [place], [address], 03/31/2025 07:13:36 03/30/20 25 03/31/2025 CBC WITH DIFFE RENTI AL/PL ATELE T baso (absolute) 0.1 x10e3 /uL 0.0-0. 2 Not Available [facility] ([facility]) [address] [place], [address], 03/31/2025 07:13:36 03/30/20 25 03/31/2025 CBC WITH DIFFE RENTI AL/PL ATELE T immature granulocytes 0 % notest ab. Not Available [facility] ([facility]) [address] [place], [address], 03/31/2025 07:13:36 03/30/20 25 03/31/2025 CBC WITH DIFFE RENTI AL/PL ATELE T immature grans (abs) 0.0 x10e3 /uL 0.0-0. 1 Not Available [facility] ([facility]) [address] [facility], [place], [address], 03/31/2025 07:13:36 02/26/20 25 02/24/2025 MAMMO , scree brunilda, digit al, bilat eral No observ ation record ed. [facility] [address] [address], [place], [address], 03/01/2025 13:53:33 Result Notes None recorded. Problems Name Problem SNOMED Code Status Onset Date Resolution Date Notes Provider Name and Address Organization Details Recorded Time Long-term drug therapy Active 2023 JOSEPH Crenshaw Attn: [employer],[address] [place], [address], [place] [facility] 4 15:47:33 Gastroesophage al reflux disease without esophagitis 885240555 Active 2023 JOSEPH Crenshaw Attn: [employer] gaming,[address] [place], [address], [place] [facility] 4 22:36:59 Cobalamin deficiency 177350602 Active 2023 JOSEPH Crenshaw Attn: [employer] gaming,[address] [place], [address], [place] [facility] 4 22:37:00 Hyperlipidemia 34010229 Active 2023 JOSEPH Crenshaw Attn: [employer]ahida gaming,[address] [facility], [place], [address], [place] [facility] 4 22:37:03 Body mass index 25-29 - overweight 200510098 Active 2024 Ivis Yeh null, [place] - [facility] 5 16:05:54 Subarachnoid hemorrhage 81272570 Active 2024 JOSEPH Crenshaw Attn: Zahida gaming,[address] [facility], [place], [address], [facility] 5 08:07:10 Overweight 472942851 Active 2024 JOSEPH Crenshaw Attn: Zahida gaming,[address] [facility], [place], [place], [address] [place] [address] 2, [facility] 5 08:07:21 History of alcoholism 778508742 Active 2024 JOSEPH Crenshaw Attn: Zahida gaming,[address] [facility], [place], [address], [facility] 5 08:07:37 Moderate cognitive impairment 032372170 Active 2024 JOSEPH Crenshaw Attn: Zahida gaming,[address] [facility], [place], [address], [facility] 5 08:07:48 Problem Notes None recorded. Procedures Surgical History Date Name Laterality Status Provider Name and Address Organization Details Recorded Time hernia repair completed Nikkie Pickering MA [facility] 08/25/2024 12:46:39 section completed Nikkie Pickering MA [facility] 08/25/2024 12:47:19 Imaging Results None recorded. Procedure Notes None recorded. Medical Equipment None Reported. Allergies Allergen ID Allergen Name Allergen Category Reaction Reaction Severity Criticality Documentation Date Start Date Code Code System Note Provider Name and Address Organization Details Recorded Time [id number] Product containin g penicilli n (product) medicatio n Not available Not available Not available 04/25/2025 62259 8001 SNOMED Ivis Yeh [facility] 5 14:57:07 116948 cephalexi n medicatio n Not available Not available Not available 04/25/2025 2231 RxNorm Ivis Yeh null, [facility] 14:57:14 [id number] clindamyc in Not available Not available Not available Not available 04/25/2025 2582 RxNorm Ivis Yeh null, [place] [facility] 14:57:21 Medications Name Sig Start Date Stop Date Status Note LastModified by Organization Details LastModified Time latanoprost 0.005 % eye drops active Not Available Not Available Not Available atorvastatin 20 mg tablet Take 1 tablet every day by oral route in the evening. active Not Available Not Available No t Available trazodone 50 mg tablet Take 1 tablet every day by oral route at bedtime. active Not Available Not Available No t Available hydrocodone 5 mg-acetamino phen 325 mg tablet TAKE 1 TABLET BY MOUTH EVERY 6 HOURS NEEDED FOR PAIN OR ACUTE PAIN 08/24 completed Not Available Not Available Not Available senna 8.6 mg tablet Take 2 tablets every day by oral route. active Not Available Not Available No t Available ciprofloxaci n 500 mg tablet Take 1 tablet every 12 hours by oral route. 12/20 completed Not Available Not Available Not Available pantoprazole 40 mg tablet,delay ed release TAKE 1 TABLET BY MOUTH EVERY DAY active Not Available Not Available No t Available midodrine 2.5 mg tablet active Not Available Not Available Not Available docusate sodium 100 mg tablet Take 1 tablet every day by oral route. active Not Available Not Available No t Available bisacodyl active Not Available Not Deena ilable Not Available cephalexin 08/25 completed Not Available Not Available Not Available docusate calcium active Not Available Not Available Not Available midodrine 01/20 completed Not Available Not Available Not Available Vitamin B1 active Not Available Not Av ailable Not Available Geritol Complete active Not Available Not Available Not Available Vitals Date Recorded Respiratory rate Systolic And Diastolic Provider Name and Address Organization Details Last Updated DateTime 01/20/2025 16 /min 102/70 mm[Hg] JOSEPH Crenshaw Attn: Accounting,[address] [facility], [place], [address], [place] [facility] 01/20/2025 15:21:45 Date Recorded Body height Body mass index (BMI) Body weight Heart rate Oxygen saturation Oxygen saturation in Arterial blood by Pulse oximetry Systolic And Diastolic Provider Name and Address Organization Details Last Updated DateTime 162.56 cm 28.8 kg/m2 55187.5 2 g 73 /min 98 % 98 % 120/70 mm[Hg] Jovon Hernandez MA [facility] 5 14:58:25 Date Recorded Respiratory rate Systolic And Diastolic Provider Name and Address Organization Details Last Updated DateTime 08/24/2024 18 /min 122/70 mm[Hg] JOSEPH Crenshaw Attn: Accounting,[address] [facility], [place], [address], [place] - [facility] 08/24/2024 15:53:30 Date Recorded Body height Body mass index (BMI) Body weight Oxygen saturation Oxygen saturation in Arterial blood by Pulse oximetry Heart rate Systolic And Diastolic Provider Name and Address Organization Details Last Updated DateTime 162.56 cm 27.1 kg/m2 87812.7 4 g 97 % 97 % 92 /min 118/72 mm[Hg] Nikkie Pickering MA [facility] 4 14:58:01 Social History Question Answer Notes LastModified by Kiorizat ion Details LastModified Time Tobacco Smoking Status Current Every Day Smoker Nikkie Pickering MA null, [place] [facility] 08/24/2024 15:04:20 Do You Have An Advance Directive? No Information not available 01/20/2025 What Is Your Level Of Caffeine Consumption? Moderate Information not available 08/24/2024 In The 14 Days Before Symptom Onset, Have You Had Close Contact With A Laboratory-confir med COVID-19 While That Case Was Ill? No Information not available 08/24/2024 In The 14 Days Before Symptom Onset, Have You Had Close Contact With A Person Who Is Under Investigation For COVID-19 While That Person Was Ill? No Information not available 08/24/2024 Have You Been To An Area Known To Be High Risk For COVID-19? No Information not available 08/24/2024 Are You Deaf Or Do You Have Serious Difficulty Hearing? No Information not available 08/24/2024 What Type Of Diet Are You Following? REGULAR Information not available 08/24/2024 Are There Any Guns Present In Your Home? No Information not available 08/24/2024 What Was The Date Of Your Most Recent Tobacco Screening? 01/20/2025 Information not available 01/20/2025 What Is Your Current Pack Years? 30ormorepack years 10 Per Day Information not available 08/25/2024 What Is Your Relationship Status? Information not available 08/24/2024 Do You Use Your Seat Belt Or Car Seat Routinely? Yes Information not available 01/20/2025 Do You Have Smoke And Carbon Monoxide Detectors In Your Home? Yes Information not available 08/24/2024 At What Age Did You Start Smoking Tobacco? 11 Information not available 08/24/2024 Do You Use Sunscreen Routinely? No Information not available 08/24/2024 Has Tobacco Cessation Counseling Been Provided? No Information not available 08/24/2024 Sex: Female Functional Status Question Answer Note LastModified by Organizat ion Details LastModified Time Do you use any illicit or recreational drugs? No Information not available 08/24/2024 Do you or have you ever used any other forms of tobacco or nicotine? No Information not available 08/24/2024 What is your level of alcohol consumption? None former , vodka, 3-4 times a week, 1/2 pint Information not available 08/25/2024 Are you currently employed? No Information not available 01/20/2025 Are you able to care for yourself? Yes Information not available 08/24/2024 What is your exercise level? Occasional walk Information not available 08/24/2024 Mental Status Question Answer Note LastModified by Organization D etails LastModified Time Do you feel stressed (tense, restless, nervous, or anxious, or unable to sleep at night)? CC8817-4 Information not available 01/20/2025 Family History Relationship Description Onset Age of this Age Resolved Age Notes LastModified by Organization Details LastModified Time Sister Asthma crevisma Not available 0 08/25/2024 12:48:11 Sister Hypertensive disorder crevisma Not available 2023 12:50:10 Father Coronary arterioscler osis crevisma Not available 2023 12:48:36 Father Diabetes mellitus crevisma Not available 2023 12:49:00 Father Heart disease crevisma Not available 2023 12:49:29 Father Hypertensive disorder crevisma Not available 2023 12:50:10 Father Hypercholest erolemia crevisma Not available 2023 12:50:33 Father Myocardial infarction crevisma Not available 08/25 12:50:49 Brother Coronary arterioscler osis crevisma Not available 2023 12:48:36 Brother Diabetes mellitus crevisma Not available 2023 12:49:00 Brother Heart disease crevisma Not available 2023 12:49:29 Brother Hypertensive disorder crevisma Not available 2023 12:50:10 Brother Hypercholest erolemia crevisma Not available 2023 12:50:33 Mother Diabetes mellitus crevisma Not available 2023 12:49:00 Mother Hypertensive disorder crevisma Not available 2023 12:50:10 Medical History Condition Response Have you had a mammogram in the last yea r? N High Blood Pressure Y Anemia Y Have you had a colonoscopy in the last 1 0 years? N Gynecological History Statement/Question Response If Post Menopausal, Age at Menopause 48 Obstetrics History GPAL:G 1 P 1 0 0 1 Type Value Full Term 1 Living 1 Total 1 Immunizations Vaccine Type Date Status Note Provider Nam e and Address Organization Details Recorded Time COVID-19, mRNA, LNP-S, PF, 30 mcg/0.3 mL dose 02/14/2021 completed MICHAELLE Brock, [place] [facility] 01/19/2025 14:31:57 COVID-19, mRNA, LNP-S, PF, 30 mcg/0.3 mL dose 03/10/2021 completed MICHAELLE [place], [place] [facility] 01/19/2025 14:31:57 Tdap 02/06/2024 completed MICHAELLE [place], [place] [facility] 01/19/2025 14:31:57 Past Encounters Encounter ID Performer Location Encounter Start Date Encounter Closed Date Diagnosis/Indication Diagnosis SNOMED-CT Code Diagnosis ICD10 Code Diagnosis Note [id number] Jules Bliss MD [facility] angeli Huffman [address] [place] [address] 08/24/2024 14:40:25 08/24/2024 16:11:29 Subarachnoid hemorrhage 92565592 I60.9 Patient does have some post subarachno id hemorrhage sequelae related to some memory disturbanc e Gastroesop hageal reflux disease without esophagitis 312226337 K21.9 Continue pantoprazo le 40 mg daily Hyperlipidemia 73818252 E78.5 Continue atorvastat in 20 mg daily and check updated fasting lipid panel Long-term drug therapy 375421188 Z79.899 Routine labs including CBC, liver function, metabolic panel and thyroid are due Cobalamin deficiency 190 762370 E53.8 History of B12 deficiency , patient is due for updated labs Screening mammography 24 215506 Z12.31 Annual mammogram ordered [id number] Jules Bliss MD [facility] [address] [place] [address] 01/20/2025 14:33:14 01/20/2025 16:05:24 Hyperlipidemia 26189780 E78.5 Patient is on atorvastat in 20 mg daily and due in January for fasting lipid panel Gastroesop hageal reflux disease without esophagitis 389934830 K21.9 Continue pantoprazo le 40 mg daily. This needs to be on her medication list and was added to her assisted living papers a few weeks back. Subarachno id hemorrhage 52340925 I60.9 Patient does have some post subarachno id hemorrhage sequelae related to some memory disturbanc e. jan [address] angiogram head to evaluate area of trauma to r/o any aneurysm, etc. her subarachno id has healed but a shadow is presen. Cobalamin deficiency 190 410737 E53.8 History of B12 deficiency , patient is due for updated labs Long-term drug therapy 650311699 Z79.899 Routine labs including CBC, liver function, metabolic panel and thyroid are due in January Body mass index 25-29 - overweight 951063934 Z68.28 BMI 28.8 Overweight 490799033 E66 .3 History of alcoholism 16 8358732 F10.21 Moderate c ognitive impairment 086767898 R41.9 Health Concerns Section Related Observation LastModified by Organization Detai ls LastModified Time None Recorded Concern Status LastModified by Organization Details LastModified Time None Recorded Advance Directives Directive N: Payers Encounter Date Sequence Insurance Name Policy Number Policy Michael Covered Member ID Michael Member ID Guarantor Name 08/24/2024 1 [facility] (MEDICARE REPLACEMENT/A DVANTAGE - HMO) [id number] Brooklyn Godwin [id number] [place] Godwin 01/20/2025 1 [facility] (MEDICARE REPLACEMENT/A DVANTAGE - HMO) [id number] Brooklyn Godwin [id number] Brooklyn Godwin Notes Date Note Type Note Provider Name and Address Organization Details Recorded Time 08/24/2024 text/html Reflux/GERDRepor steven bypatient.Notes:Gail frazier does have underlying history of acid reflux and is supposed to be taking her pantoprazole 40 mg daily. She denies any symptom breakthrough Patient is now at an assisted living facility after she suffered a severe fall that resulted in brain bleed and extended hospital stay and rehabilitation after. Family put her into assisted living at this time at [facility]. Patient has long history of alcohol abuse. This is what contributed to her fall with her subarachnoid hemorrhage because she was intoxicated from alcohol and fell down multiple steps. She is currently not drinking while at assisted living. Patient has a history of vitamin B12 deficiency and is due for updated labs. Patient has a history of hyperlipidemia and is taking atorvastatin daily. JOSEPH Crenshaw Attn: Accounting,[address] [place], [address], [place] [facility] 09/18/2024 22:37:26 01/20/2025 text/html Reflux/GERDRepor steven bypatient.Notes:Gail frazier does have underlying history of acid reflux and is supposed to be taking her pantoprazole 40 mg daily. She denies any symptom breakthrough Patient is now at an assisted living facility after she suffered a severe fall that resulted in brain bleed and extended hospital stay and rehabilitation after. Family put her into assisted living at this time at [facility]. Patient has long history of alcohol abuse. This is what contributed to her fall with her subarachnoid hemorrhage because she was intoxicated from alcohol and fell down multiple steps. She is currently not drinking while at assisted living. Patient has a history of vitamin B12 deficiency and is due for updated labs. Patient has a history of hyperlipidemia and is taking atorvastatin daily. JOSEPH Crenshaw Attn: Accounting,[address] [facility], [place], [address], [facility] - [facility] 01/31/2025 08:08:11 OBGyn Episode No OBEpisode recorded.
--- OUTSIDE RECORDS SUMMARY | 2025-04-25 14:33 | XMS_ITS | Continuity of Care Document ---
Author Organization [facility] Address [address] [place] [address] [address] [place] [address] Phone Care Team Providers Care English Language Learner Tutor Name Role Phone Yuniel Barron Unavailable Unavailable Procedures Procedure Date Eye Exam & Treatment Refraction Advance Directives Directive Yes / No Effective Date File Name No Information Encounters Encounter Description Practice Location Reason(s) For Visit Diagnoses Date Provider Providers Copied on Encounter [facility], [address] [place] [address] [address], [place], [place], [id number], [place] tel:[phone] SEC [facility] No Information [address]. [address] [facility] , [address], [place], [address], [place]. tel:[phone] Family History Family Member Type Diagnosis Age At Onset No Information Payers Payer name Insurance type Covered democrat ID Authoriza tion(s) [employer] [employer] [place] [id number] Social History Type Description Quantity Date Captured Comments Sex Female Smoking Status No Information Chief Complaint And Reason For Visit No Information Reason For Referral Reason For Referral No Information History Of Present Illness Encounter Date Complaint History Of Prese nt Illness No Information Functional Status Date Functional Assessmen t No Information Instructions Date Instruction Additional Infor mation No Information Assessments Type Assessment Date No Information Patient Care Teams Name Effective Dates (start - stop) Status Members No Information
--- OUTSIDE RECORDS SUMMARY | 2025-04-25 14:33 | XMS_ITS | Clinical Summary ---
Author Organization [facility] Address [address] [address] Care Team Providers Care Marketing Research Coordinator Name Role Phone Anabel Epstein Primary Care Provider [phone] Allergies Active Allergy Reactions Criticality Noted Date Comments Clindamycin Anaphylaxis 07/09/2020 Penicillins Anaphylaxis 07/09/2020 Medications atorvastatin (LIPITOR) 20 mg tablet atorvastatin 20 mg tablet Active latanoprost (XALATAN) 0.005 % solution INSTILL 1 DROP INTO BOTH EYES AT BEDTIME 3 Active brimonidine-esther oloL (COMBIGAN) 0.2-0.5 % solution USE 1 DROP IN BOTH EYES TWICE DAILY 3 Active midodrine (PROAMATINE) 2.5 mg Tablet Take 10 mg by mouth 3 times daily. 4 Active traZODone (DESYREL) 50 mg tablet Take 50 mg by mouth daily at bedtime. 4 Active Active Problems Problem Noted Date Diagnosed Date Hereditary hemochromatosis 07/09/2020 Chronic anemia 07/09/2020 Family History Medical History Relation Name Comments Heart Disease Brother Diabetes Father Heart Disease Father Diabetes Mother Hypertension Sister Relation Name Status Comments Brother Alive Father Mother Sister Alive Social History Tobacco Use Types Packs/Day Years Used Date Smoking Tobacco: Every Day Cigarettes 0.5 25 Smokeless Tobacco: Never Tobacco Cessation:Ready to Q uit: Not Asked; Counseling Given: Not Answered Alcohol Use Standard Drinks/Week Comments Not Currently 0 (1 standard drink = 0.6 oz pur e alcohol) Comments No Sex and Gender Information Value Date Recorded Sex Assigned at Not on file Legal Sex Female 5:18 PM GASTROENTEROLOGY MANAGER Gender Identity Not on file Sexual Orientation Not on file Last Filed Vital Signs Vital Sign Reading Time Taken Comments Blood Pressure 119/77 09/22/2024 2:01 PM CDT Pulse 90 09/22/2024 2:01 PM CDT Temperature 36.6 C (97.8 F) 09/22/2024 2:01 PM CDT Respiratory Rate 14 09/22/2024 2:01 PM CDT Oxygen Saturation 98% 09/22/2024 2:01 PM CDT Inhaled Oxygen Concentration - - Weight 72.1 kg (159 lb) 09/22/2024 2:01 PM CDT Height 162.6 cm (5' 4) 08/20/2022 11:38 AM CDT Body Mass Index 27.29 08/20/2022 11:38 AM CDT Plan of Treatment Upcoming Encounters Date Type Department Care Team (Late st Contact Info) Description 04/28/2025 1:00 PM CDT [facility] Visit [facility] [address] [facility] [address] [place] [address] Bebo Hooper MD [address] [facility] [address] [place] [address] Health Maintenance Due Date Last Done Comments Pre-Diabetes and Diabetes Screening 1960 DTAP/TDAP/TD VACCINES (1 - Tdap) 1977 PNEUMOCOCCAL VACCINE 50+ YEARS (1 of 2 - PCV) 12/27/18 78 BREAST CANCER SCREENING 1998 FIT-DNA Q 3 years 2003 FIT/FOBT Q 1 year 2003 Flex Sig/CT Colonography Q 5 years 2003 ZOSTER VACCINE (1 of 2) 2008 OSTEOPOROSIS SCREENING 2023 INFLUENZA VACCINE (#1) 2024 [place] Prev entative Visit/Annual Wellness Visit 11/30/2024 COLORECTAL SCREENING 05/14/2030 05/14/2020 Colorectal Cancer Screening 05/14/2030 RSV VACCINE (60+ or ) (1 - 1-dose 75+ series) 2033 Insurance [facility] [id number] [place] [address] Care Teams Marketing Research Coordinator Relationship Specialty Start Date End Date Anabel Epstein PA PCP - General Physician Tool Maker Apprentice 07/05/20
[2025-04-25 14:53] LABS: Hematocrit 44.5 % (37.0-47.0); Hemoglobin 15.3 g/dL (12.0-15.0); Mean Corpuscular HGB Conc 34.4 g/dl (32-36); Mean Corpuscular Hemoglobin 32.3 pg (26-34); Mean Corpuscular Volume 93.9 fl (80-100); Mean Platelet Volume 11.2 fl (7.4-10.4); Platelet Count Result 182 k/mm3 (150-375); Red Blood Count 4.74 M/mm3 (4.2-5.4); White Blood Count 10.6 K/mm3 (4.5-10.0)
[2025-04-25 16:38] LABS: Alanine Aminotransferase 16 U/L (6-35); Albumin Level 4.5 g/dL (3.5-5.1); Alkaline Phosphatase 115 U/L (38-126); Anion Gap 11 mmol/L (4-12); Aspartate Amino Transferase 68 U/L (14-36); Bilirubin,Total 0.4 mg/dL (0.2-1.3); Blood Urea Nitrogen 23 mg/dL (7-17); Calcium 9.7 mg/dL (8.4-10.2); Carbon Dioxide 20 mmol/L (22-30); Chloride 109 mmol/L (98-107); Estimated Glomerular Filt Rate 54; Glucose 93 mg/dL (65-110); Potassium 4.3 mmol/L (3.4-5.0); Sodium 140 mmol/L (137-145)
[2025-04-25 16:44] LABS: Iron 106 ug/dL (37-170)
[2025-04-25 16:57] LABS: Percent Iron Saturation 37 % (20-50)
== END 2025-04-25 14:29 | disposition home or self-care (01) ==
LOC: ANHLAB 14:30
PROVIDERS: PCP Physician Assistant; Visit Provider Internal Medicine Hematology & Oncology
DX: E83.110 Hereditary hemochromatosis (principal)
CPT/HCPCS: 36415; 80053; 82728; 83540; 83550; 85027

== ENCOUNTER 2025-04-25 16:02 | Outpatient (CLI) | payer MEDICARE, SELFPAY ==
--- NOTE | ~2025-04-25 | US_ITS ---
EXAMINATION: US thyroid DATE: 04/25/2025 16:21 INDICATION: Thyroid nodule TECHNIQUE: Multiple ultrasound images of the thyroid were obtained. COMPARISON: None. FINDINGS: The right thyroid lobe measures 4.1 x 2.0 x 0.9 cm. The left thyroid lobe measures 4.4 x 1.6 x 0.8 cm. Within the left lobe of the thyroid gland is a 9.7 x 8.8 x 10.0 mm nodule: Composition -mixed cystic and solid (1) Echogenicity -hyperechoic and isoechoic (1) Shape - wider than tall Margin - smooth Echogenic foci - none. = TR2 not suspicious. The isthmus measures 0.5cm in anterior to posterior dimension. There is otherwise normal echotexture and echogenicity throughout the remainder of the thyroid gland. No additional discrete nodules identified. Normal vascular flow is present. IMPRESSION: TR2 nodule in the left lobe of the thyroid gland measuring 10 mm in greatest dimension. This nodule is not sonographically suspicious and no FNA is recommended While follow-up is not recommended, it may be performed. Reviewed, dictated and finalized at location A. IMPRESSION: TR2 nodule in the left lobe of the thyroid gland measuring 10 mm in greatest di mension. This nodule is not sonographically suspicious and no FNA is recommended While follow-up is not recommended, it may be performed.
--- NOTE | ~2025-04-25 | XR_ITS ---
HISTORY: Pain in right knee COMPARISON: None TECHNIQUE: 3 views of the right knee were performed FINDINGS: No acute or subacute fracture, erosion, lytic or sclerotic lesion. Medial and lateral tibiofemoral joint space narrowing is identified. No suprapatellar joint effusion is identified. The infrapatellar joint space is clear. Chondrocalcinosis within the medial and lateral tibiofemoral joint space. IMPRESSION: Degenerative disease, without acute fracture. Reviewed, dictated and finalized at location A.
== END 2025-04-25 16:03 | disposition home or self-care (01) ==
LOC: MICIMG 16:03
PROVIDERS: PCP Physician Assistant; Visit Provider Physician Assistant
DX: E04.1 Nontoxic single thyroid nodule (principal); M25.561 Pain in right knee
CPT/HCPCS: 73562; 76536

== ENCOUNTER 2025-06-05 09:21 | Outpatient (CLI) | payer MEDICARE, SELFPAY ==
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
== END 2025-06-05 09:22 | disposition home or self-care (01) ==
LOC: MICIMG 09:22
PROVIDERS: PCP Physician Assistant; Visit Provider Psychiatry & Neurology Neurology
DX: R41.3 Other amnesia (principal); Z87.828 Personal history of other (healed) physical injury and trauma; S06.6X9D Traumatic subarachnoid hemorrhage with loss of consciousness of unspecified duration, subsequent encounter; F10.10 Alcohol abuse, uncomplicated; E83.119 Hemochromatosis, unspecified; X58.XXXD Exposure to other specified factors, subsequent encounter
CPT/HCPCS: 70551

== ENCOUNTER 2025-06-05 10:21 | Outpatient (CLI) | payer MEDICARE, SELFPAY ==
--- OUTSIDE RECORDS SUMMARY | 2025-06-05 10:34 | XMS_ITS | Clinical Summary ---
Author Organization [facility] Address [address] [place] [address] Care Team Providers Care Fluorescent Lamp Replacer Name Role Phone Oneilela Anabel JOSEPH Primary Care Provider [phone] Allergies Active Allergy Reactions Criticality Noted Date Comments Clindamycin Rash Low 07/09/2020 Cephalexin Unknown 06/25/2023 Penicillin G Unknown 06/25/2023 Sulfa Antibiotics Unknown 06/25/2023 Medications HYDROcodone-kevin taminophen (NORCO) 5-325 MG tabletIndicatio ns:Acute Pain < 3 Day Supply Take 1 tablet by mouth every 6 (six) hours as needed for Pain. Indications: Acute Pain < 3 Day Supply 12 tablet 3 Active Additional Information Patient not taking.Reported on 09/03/2023 atorvastatin (LIPITOR) 20 MG tablet Take 1 tablet (20 mg total) by mouth daily. Active brimonidine-esther olol (COMBIGAN) 0.2-0.5 % ophthalmic solution USE 1 DROP IN BOTH EYES TWICE DAILY Active latanoprost (XALATAN) 0.005 % ophthalmic solution Place 1 drop into both eyes nightly. 3 Active ibuprofen (MOTRIN) 200 MG tablet Take 1 tablet (200 mg total) by mouth every 6 (six) hours as needed for Pain. Active Active Problems No known active problems Family History Medical History Relation Comments Asthma Sister None Sister Relation Status Comments Sister Social History Tobacco Use Types Packs/Day Years Used Date Smoking Tobacco: Every Day Cigarettes 0.5 30 Smokeless Tobacco: Never Tobacco Cessation:Ready to Q uit: No; Counseling Given: Yes Comments:MD to psychosocial rehabilitation counselor Alcohol Use Standard Drinks/Week Comments Not Currently 0 (1 standard drink = 0.6 oz pur e alcohol) Not now PHQ-2 Answer Date Recorded Patient Health Questionnaire-2 Score 0 06/30/2023 Comments Unknown Sex and Gender Information Value Date Recorded Sex Assigned at Not on file Legal Sex Female 5:42 PM CDT Gender Identity Not on file Sexual Orientation Not on file Last Filed Vital Signs Vital Sign Reading Time Taken Comments Blood Pressure 116/69 09/03/2023 12:53 PM CDT Pulse 95 09/03/2023 12:53 PM CDT Temperature 36.8 C (98.3 F) 09/03/2023 12:53 PM CDT Respiratory Rate 20 06/25/2023 10:08 PM CDT Oxygen Saturation 99% 09/03/2023 12:53 PM CDT Inhaled Oxygen Concentration - - Weight 65.8 kg (145 lb) 09/03/2023 12:53 PM CDT Height 162.6 cm (5' 4) 09/03/2023 12:53 PM CDT Body Mass Index 24.89 09/03/2023 12:53 PM CDT Plan of Treatment Health Maintenance Due Date Last Done Comments Colorectal Cancer Screening Colonoscopy (10 Years) 1958 Hepatitis C 1976 DTaP, Tdap and Td Vaccines ( 1 - Tdap) 1977 Pneumococcal Vaccine: 50+ Years (1 of 2 - PCV) 1977 Mammogram Screening 1998 Zoster Vaccines (1 of 2) 2008 Dexa Scan (General) 2023 COVID-19 Vaccine (3 - 2023-2 5 season) 2024 03/10/2021, 02/14/2021 PHQ-2 (Physician [place]) 11/30/2024 06/30/2023 RSV Immunization or 60+ Years (1 - 1-dose 75+ series) 2033 Meningococcal B Vaccine Aged Out No l onger eligible based on patient's age to complete this topic Meningococcal Vaccine Aged Out No angélica hipolito eligible based on patient's age to complete this topic RSV Immunizations Under 20 Months Aged Out No longer eligible b ased on patient's age to complete this topic Insurance [facility] Care Teams Fluorescent Lamp Replacer Relationship Specialty Start Date End Date Anabel Epstein PA PCP - General PHYSICIAN CORPORATE ACCOUNT EXECUTIVE 06/25/23
--- OUTSIDE RECORDS SUMMARY | 2025-06-05 10:34 | XMS_ITS | Data Portability ---
Author Organization [facility] Octavia [facility] Address [address] [place] [address] Assessment Encounter Date Assessment Date Assessment LastModified by Organization Details LastModified Time 08/24/2024 08/24/[address] [place] Brain June 30. Not available 08/24/2024 15:45:25 01/20/2025 01/20/2025 february 24 scheduled mammogram at [facility]. Not available 01/20/2025 15:22:35 Plan of Treatment Reminders Order Date Submit Date Provider Last Modified By Organization Details Last Modified Time Details Appointments ANY 15 2024 03:30P M JOSEPH Crenshaw Not available Not available Not available Lab CBC w/ auto diff 2024 025 [email or web address] [facility], [address] [facility], [facility], [place], [address], 04/05/2025 15:36:05 hepatic function panel, serum 2024 025 BRANDON [facility], [address] [facility], [facility], [place], [address], 03/31/2025 07:13:33 BMP, serum or plasma 2024 025 BRANDON [facility], [address] [facility], [facility], [place], [address], 03/31/2025 07:13:34 TSH + free T4, serum 2024 025 BRANDON [facility], [address] [facility], [facility], [place], [address], 03/31/2025 07:13:32 lipid panel, serum 2024 025 BRANDON [facility], [address] [place] [address] [facility], [place], [address], 03/31/2025 07:13:31 vitamin B12 + folate, serum or blood 2024 025 BRANDON [facility], [address] [place] [address], [facility], [place], [address], 03/31/2025 07:13:35 CBC w/ auto diff 2023 024 BRANDON [facility], [address] [place] [address] 2, [place], [address], 08/25/2024 08:29:57 hepatic function panel, serum 2023 024 BRANDON [facility], [address] [place] [address] 2, [place], [address], 08/25/2024 08:29:55 BMP, serum or plasma 2023 024 BRANDON [facility], [address] [place] [address], [facility], [place], [address], 08/25/2024 08:29:55 TSH + free T4, serum 2023 024 BRANDON [facility], [address] [place] [address] 2, [place], [address], 08/25/2024 08:29:54 lipid panel, serum 2023 024 BRANDON [facility], [address] [place] [address], [facility], [place], [address], 08/25/2024 08:29:54 vitamin B12 + folate, serum or blood 2023 024 BRANDON [facility], [address] [place] [address], [facility], [place], [address], 08/25/2024 08:29:56 Referral None recorded. Procedures None recorded. Surgeries None recorded. Imaging MAMMO, screening , digital, bilateral 2023 024 BRANDON [facility], [address] [place] [address], [place], [address], 02/25/2025 11:34:02 Medication Orders None recorded. Patient TargetsNo targets recorded. Patient Instructions Encounter Date Encounter Id Patient Instructions Last Modified By Organization Details Last Modified Time 01/20/2025 [id number] A healthy lifestyle: care instructions Not available 01/31/2025 08:07:54 Reason for Referral None Reported. Results Created Date Observation Date Name Description Value Unit Range Abnormal Flag Note LastModifiedBy Organization Detail LastModifiedTime 08/24/2008/25/2024 TSH+F REE T4 TSH 3.610 uIU/m L 0.450- 4.500 Not Available [facility] ([facility]) [address] [place], [address], 08/25/2024 08:29:53 08/24/2008/25/2024 TSH+F REE T4 T4,free(dire ct) 1.08 NG/dL 0.82-1 .77 Not Available [facility] ([facility]) [address] [place], [address], 08/25/2024 08:29:53 08/24/2008/25/2024 LIPID PANEL cholesterol, total 244 mg/dL 100-19 9 above high normal Not Available [facility] ([facility]) [address] [place], [address], 08/25/2024 08:29:54 08/24/2008/25/2024 LIPID PANEL triglyceride s 143 mg/dL 0-149 Not Available [facility] ([facility]) [address] [place], [address], 08/25/2024 08:29:54 08/24/2008/25/2024 LIPID PANEL HDL cholesterol 55 mg/dL >39 Not Available [facility] ([facility]) [address] [facility] [place], [address], 08/25/2024 08:29:54 08/24/20 24 08/25/2024 LIPID PANEL VLDL cholesterol brandi 26 mg/dL 5-40 Not Available [facility] ([facility]) [address] [facility] [place], [address], 08/25/2024 08:29:54 08/24/20 24 08/25/2024 LIPID PANEL LDL chol calc ([facility]) 163 mg/dL 0-99 above high normal Not Available [facility] ([facility]) [address] [place], [address], 08/25/2024 08:29:54 08/24/20 24 08/25/2024 HEPAT IC FUNCT ION PANEL (7) protein, total 6.6 g/dL 6.0-8. 5 Not Available [facility] ([facility]) [address] [place], [address], 08/25/2024 08:29:55 08/24/20 24 08/25/2024 HEPAT IC FUNCT ION PANEL (7) albumin 4.3 g/dL 3.9-4. 9 Not Available [facility] ([facility]) [address] [place], [address], 08/25/2024 08:29:55 08/24/20 24 08/25/2024 HEPAT IC FUNCT ION PANEL (7) bilirubin, total 0.2 mg/dL 0.0-1. 2 Not Available [facility] ([facility]) [address] [place], [address], 08/25/2024 08:29:55 08/24/20 24 08/25/2024 HEPAT IC FUNCT ION PANEL (7) bilirubin, direct <0.10 mg/dL 0.00-0 .40 Not Available [facility] ([facility]) [address] [facility], [address], 08/25/2024 08:29:55 08/24/20 24 08/25/2024 HEPAT IC FUNCT ION PANEL (7) alkaline phosphatase 102 IU/L 44-121 Not Available [facility] ([facility]) [address] [facility] [place], [address], 08/25/2024 08:29:55 08/24/20 24 08/25/2024 HEPAT IC FUNCT ION PANEL (7) AST (SGOT) 18 IU/L 0-40 Not Available [facility] ([facility]) [address] [facility] [place], [address], 08/25/2024 08:29:55 08/24/20 24 08/25/2024 HEPAT IC FUNCT ION PANEL (7) ALT (SGPT) 13 IU/L 0-32 Not Available [facility] ([facility]) [address] [place], [address], 08/25/2024 08:29:55 08/24/20 24 08/25/2024 BMP7+ EGFR glucose 91 mg/dL 70-99 Not Available [facility] ([facility]) [address] [place], [address], 08/25/2024 08:29:55 08/24/20 24 08/25/2024 BMP7+ EGFR BUN 22 mg/dL 8-27 Not Available [facility] ([facility]) [address] [place], [address], 08/25/2024 08:29:55 08/24/20 24 08/25/2024 BMP7+ EGFR creatinine 1.12 mg/dL 0.57-1 .00 above high normal Not Available [facility] ([facility]) [address] [place], [address], 08/25/2024 08:29:55 08/24/20 24 08/25/2024 BMP7+ EGFR eGFR 55 mL/mi n/1.7 3 >59 below low normal Not Available [facility] ([facility]) [address] [facility], [place], [address], 08/25/2024 08:29:55 08/24/20 24 08/25/2024 BMP7+ EGFR sodium 139 mmol/ L 134-14 4 Not Available [facility] ([facility]) [address] [facility], [place], [address], 08/25/2024 08:29:55 08/24/20 24 08/25/2024 BMP7+ EGFR potassium 4.8 mmol/ L 3.5-5. 2 Not Available [facility] ([facility]) [address] [facility], [place], [address], 08/25/2024 08:29:55 08/24/20 24 08/25/2024 BMP7+ EGFR chloride 106 mmol/ L 96-106 Not Available [facility] ([facility]) [address] [facility], [place], [address], 08/25/2024 08:29:55 08/24/20 24 08/25/2024 BMP7+ EGFR carbon dioxide, total 19 mmol/ L 20-29 below low normal Not Available [facility] ([facility]) [address] [place], [address], 08/25/2024 08:29:55 08/24/20 24 08/25/2024 VITAM IN B12 AND FOLAT E vitamin B12 495 pg/mL 232-12 45 Not Available [facility] ([facility]) [address] [place], [address], 08/25/2024 08:29:56 08/24/20 24 08/25/2024 VITAM IN B12 AND FOLAT E folate (folic acid), serum >20.0 NG/mL >3.0 A serum folat e mansoor ntrat ion of less than 3.1 ng/mL is consi dered to repre sent clini brandi defic iency . Not Available [facility] ([facility]) [address] [facility], [place], [address], 08/25/2024 08:29:56 08/24/20 24 08/25/2024 CBC WITH DIFFE RENTI AL/PL ATELE T WBC 8.9 x10e3 /uL 3.4-10 .8 Not Available [facility] ([facility]) [address] [facility], [place], [address], 08/25/2024 08:29:57 08/24/20 24 08/25/2024 CBC WITH DIFFE RENTI AL/PL ATELE T RBC 4.60 x10e6 /uL 3.77-5 .28 Not Available [facility] ([facility]) [address] [facility], [place], [address], 08/25/2024 08:29:57 08/24/20 24 08/25/2024 CBC WITH DIFFE RENTI AL/PL ATELE T hemoglobin 14.4 g/dL 11.1-1 5.9 Not Available [facility] ([facility]) [address] [facility], [place], [address], 08/25/2024 08:29:57 08/24/20 24 08/25/2024 CBC WITH DIFFE RENTI AL/PL ATELE T hematocrit 42.7 % 34.0-4 6.6 Not Available [facility] ([facility]) [address] [facility], [place], [address], 08/25/2024 08:29:57 08/24/2008/25/2024 CBC WITH DIFFE RENTI AL/PL ATELE T MCV 93 fL 79-97 Not Available [facility] ([facility]) [address] [facility], [place], [address], 08/25/2024 08:29:57 08/24/20 24 08/25/2024 CBC WITH DIFFE RENTI AL/PL ATELE T MCH 31.3 pg 26.6-3 3.0 Not Available [facility] ([facility]) [address] [facility], [place], [address], 08/25/2024 08:29:57 08/24/20 24 08/25/2024 CBC WITH DIFFE RENTI AL/PL ATELE T MCHC 33.7 g/dL 31.5-3 5.7 Not Available [facility] ([facility]) [address] [facility], [place], [address], 08/25/2024 08:29:57 08/24/20 24 08/25/2024 CBC WITH DIFFE RENTI AL/PL ATELE T RDW 14.3 % 11.7-1 5.4 Not Available [facility] ([facility]) [address] [facility], [place], [address], 08/25/2024 08:29:57 08/24/20 24 08/25/2024 CBC WITH DIFFE RENTI AL/PL ATELE T platelets 185 x10e3 /uL 150-45 0 Not Available [facility] ([facility]) [address] [facility], [place], [address], 08/25/2024 08:29:57 08/24/20 24 08/25/2024 CBC WITH DIFFE RENTI AL/PL ATELE T neutrophils 60 % notest ab. Not Available [facility] ([facility]) [address] [facility], [place], [address], 08/25/2024 08:29:57 08/24/20 24 08/25/2024 CBC WITH DIFFE RENTI AL/PL ATELE T lymphs 31 % notest ab. Not Available [facility] ([facility]) [address] [facility], [place], [address], 08/25/2024 08:29:57 08/24/20 24 08/25/2024 CBC WITH DIFFE RENTI AL/PL ATELE T monocytes 6 % notest ab. Not Available [facility] ([facility]) [address] [facility], [place], [address], 08/25/2024 08:29:57 08/24/20 24 08/25/2024 CBC WITH DIFFE RENTI AL/PL ATELE T eos 3 % notest ab. Not Available [facility] ([facility]) [address] [facility], [place], [address], 08/25/2024 08:29:57 08/24/20 24 08/25/2024 CBC WITH DIFFE RENTI AL/PL ATELE T basos 0 % notest ab. Not Available [facility] ([facility]) [address] [facility], [place], [address], 08/25/2024 08:29:57 08/24/20 24 08/25/2024 CBC WITH DIFFE RENTI AL/PL ATELE T neutrophils (absolute) 5.3 x10e3 /uL 1.4-7. 0 Not Available [facility] ([facility]) [address] [facility], [place], [address], 08/25/2024 08:29:57 08/24/20 24 08/25/2024 CBC WITH DIFFE RENTI AL/PL ATELE T lymphs (absolute) 2.8 x10e3 /uL 0.7-3. 1 Not Available [facility] ([facility]) [address] [place], [address], 08/25/2024 08:29:57 08/24/20 24 08/25/2024 CBC WITH DIFFE RENTI AL/PL ATELE T monocytes(ab solute) 0.6 x10e3 /uL 0.1-0. 9 Not Available [facility] ([facility]) [address] [place], [address], 08/25/2024 08:29:57 08/24/20 24 08/25/2024 CBC WITH DIFFE RENTI AL/PL ATELE T eos (absolute) 0.2 x10e3 /uL 0.0-0. 4 Not Available [facility] ([facility]) [address] [facility], [place], [address], 08/25/2024 08:29:57 08/24/20 24 08/25/2024 CBC WITH DIFFE RENTI AL/PL ATELE T baso (absolute) 0.0 x10e3 /uL 0.0-0. 2 Not Available [facility] ([facility]) [address] [facility], [place], [address], 08/25/2024 08:29:57 08/24/20 24 08/25/2024 CBC WITH DIFFE RENTI AL/PL ATELE T immature granulocytes 0 % notest ab. Not Available [facility] ([facility]) [address] [facility], [place], [address], 08/25/2024 08:29:57 08/24/20 24 08/25/2024 CBC WITH DIFFE RENTI AL/PL ATELE T immature grans (abs) 0.0 x10e3 /uL 0.0-0. 1 Not Available [facility] ([facility]) [address] [facility], [place], [address], 08/25/2024 08:29:57 03/30/20 25 03/31/2025 LIPID PANEL W/ CHOL/ HDL RATIO cholesterol, total 158 mg/dL 100-19 9 Not Available [facility] ([facility]) [address] [place], [address], 03/31/2025 07:13:31 03/30/20 25 03/31/2025 LIPID PANEL W/ CHOL/ HDL RATIO triglyceride s 126 mg/dL 0-149 Not Available [facility] ([facility]) [address] [facility], [place], [address], 03/31/2025 07:13:31 03/30/20 25 03/31/2025 LIPID PANEL W/ CHOL/ HDL RATIO HDL cholesterol 50 mg/dL >39 Not Available [facility] ([facility]) [address] [place], [address], 03/31/2025 07:13:31 03/30/2003/31/2025 LIPID PANEL W/ CHOL/ HDL RATIO VLDL cholesterol brandi 22 mg/dL 5-40 Not Available [facility] ([facility]) [address] [place], [address], 03/31/2025 07:13:31 03/30/20 25 03/31/2025 LIPID PANEL W/ CHOL/ HDL RATIO LDL chol calc ([facility]) 86 mg/dL 0-99 Not Available [facility] ([facility]) [address] [place], [address], 03/31/2025 07:13:31 03/30/20 25 03/31/2025 LIPID PANEL W/ CHOL/ HDL RATIO T. chol/HDL ratio 3.2 ratio 0.0-4. 4 T. Chol/ HDL Ratio Men Women 1/2 Avg.R isk 3.4 3.3 Avg.R isk 5.0 4.4 2X Avg.R isk 9.6 7.1 3X Avg.R isk 23.4 11.0 Not Available [facility] ([facility]) [address] [place], [address], 03/31/2025 07:13:31 03/30/2003/31/2025 TSH+F REE T4 TSH 3.890 uIU/m L 0.450- 4.500 Not Available [facility] ([facility]) [address] [place], [address], 03/31/2025 07:13:32 03/30/2003/31/2025 TSH+F REE T4 T4,free(dire ct) 1.21 NG/dL 0.82-1 .77 Not Available [facility] ([facility]) [address] [place], [address], 03/31/2025 07:13:32 03/30/20 03/31/2025 HEPAT IC FUNCT ION PANEL (7) protein, total 6.6 g/dL 6.0-8. 5 Not Available [facility] ([facility]) [address] [place], [address], 03/31/2025 07:13:33 03/30/20 25 03/31/2025 HEPAT IC FUNCT ION PANEL (7) albumin 4.3 g/dL 3.9-4. 9 Not Available [facility] ([facility]) [address] [place], [address], 03/31/2025 07:13:33 03/30/2003/31/2025 HEPAT IC FUNCT ION PANEL (7) bilirubin, total 0.4 mg/dL 0.0-1. 2 Not Available [facility] ([facility]) [address] [place], [address], 03/31/2025 07:13:33 03/30/20 25 03/31/2025 HEPAT IC FUNCT ION PANEL (7) bilirubin, direct 0.14 mg/dL 0.00-0 .40 Not Available [facility] ([facility]) [address] [place], [address], 03/31/2025 07:13:33 03/30/20 25 03/31/2025 HEPAT IC FUNCT ION PANEL (7) alkaline phosphatase 108 IU/L 44-121 Not Available [facility] ([facility]) [address] [place], [address], 03/31/2025 07:13:33 03/30/20 25 03/31/2025 HEPAT IC FUNCT ION PANEL (7) AST (SGOT) 20 IU/L 0-40 Not Available [facility] ([facility]) [address] [place], [address], 03/31/2025 07:13:33 03/30/20 25 03/31/2025 HEPAT IC FUNCT ION PANEL (7) ALT (SGPT) 16 IU/L 0-32 Not Available [facility] ([facility]) [address] [facility] [place], [address], 03/31/2025 07:13:33 03/30/20 25 03/31/2025 BMP7+ EGFR glucose 89 mg/dL 70-99 Not Available [facility] ([facility]) [address] [facility] [place], [address], 03/31/2025 07:13:34 03/30/20 25 03/31/2025 BMP7+ EGFR BUN 20 mg/dL 8-27 Not Available [facility] ([facility]) [address] [facility] [place], [address], 03/31/2025 07:13:34 03/30/20 25 03/31/2025 BMP7+ EGFR creatinine 1.06 mg/dL 0.57-1 .00 above high normal Not Available [facility] ([facility]) [address] [facility] [place], [address], 03/31/2025 07:13:34 03/30/20 25 03/31/2025 BMP7+ EGFR eGFR 58 mL/mi n/1.7 3 >59 below low normal Not Available [facility] ([facility]) [address] [facility] [place], [address], 03/31/2025 07:13:34 03/30/20 25 03/31/2025 BMP7+ EGFR sodium 142 mmol/ L 134-14 4 Not Available [facility] ([facility]) [address] [facility] [place], [address], 03/31/2025 07:13:34 03/30/20 25 03/31/2025 BMP7+ EGFR potassium 4.5 mmol/ L 3.5-5. 2 Not Available [facility] ([facility]) [address] [place], [address], 03/31/2025 07:13:34 03/30/20 25 03/31/2025 BMP7+ EGFR chloride 105 mmol/ L 96-106 Not Available [facility] ([facility]) [address] [facility] [place], [address], 03/31/2025 07:13:34 03/30/20 25 03/31/2025 BMP7+ EGFR carbon dioxide, total 23 mmol/ L 20-29 Not Available [facility] ([facility]) [address] [facility], [place], [address], 03/31/2025 07:13:34 03/30/20 25 03/31/2025 VITAM IN B12+F OLATE vitamin B12 468 pg/mL 232-12 45 Not Available [facility] ([facility]) [address] [facility], [place], [address], 03/31/2025 07:13:35 03/30/20 25 03/31/2025 VITAM IN B12+F OLATE folate (folic acid), serum >20.0 NG/mL >3.0 A serum folat e mansoor ntrat ion of less than 3.1 ng/mL is consi dered to repre sent clini brandi defic iency . Not Available [facility] ([facility]) [address] [facility], [place], [address], 03/31/2025 07:13:35 03/30/2003/31/2025 CBC WITH DIFFE RENTI AL/PL ATELE T WBC 7.9 x10e3 /uL 3.4-10 .8 Not Available [facility] ([facility]) [address] [place], [address], 03/31/2025 07:13:36 03/30/20 25 03/31/2025 CBC WITH DIFFE RENTI AL/PL ATELE T RBC 4.73 x10e6 /uL 3.77-5 .28 Not Available [facility] ([facility]) [address] [place], [address], 03/31/2025 07:13:36 03/30/2003/31/2025 CBC WITH DIFFE RENTI AL/PL ATELE T hemoglobin 15.5 g/dL 11.1-1 5.9 Not Available [facility] ([facility]) [address] [place], [address], 03/31/2025 07:13:36 03/30/2003/31/2025 CBC WITH DIFFE RENTI AL/PL ATELE T hematocrit 46.1 % 34.0-4 6.6 Not Available [facility] ([facility]) [address] [place], [address], 03/31/2025 07:13:36 03/30/2003/31/2025 CBC WITH DIFFE RENTI AL/PL ATELE T MCV 98 fL 79-97 above high normal Not Available [facility] ([facility]) [address] [place], [address], 03/31/2025 07:13:36 03/30/2003/31/2025 CBC WITH DIFFE RENTI AL/PL ATELE T MCH 32.8 pg 26.6-3 3.0 Not Available [facility] ([facility]) [address] [place], [address], 03/31/2025 07:13:36 03/30/2003/31/2025 CBC WITH DIFFE RENTI AL/PL ATELE T MCHC 33.6 g/dL 31.5-3 5.7 Not Available [facility] ([facility]) [address] [place], [address], 03/31/2025 07:13:36 03/30/2003/31/2025 CBC WITH DIFFE RENTI AL/PL ATELE T RDW 12.3 % 11.7-1 5.4 Not Available [facility] ([facility]) [address] [place], [address], 03/31/2025 07:13:36 03/30/20 25 03/31/2025 CBC WITH DIFFE RENTI AL/PL ATELE T platelets 204 x10e3 /uL 150-45 0 Not Available [facility] ([facility]) [address] [facility], [place], [address], 03/31/2025 07:13:36 03/30/2003/31/2025 CBC WITH DIFFE RENTI AL/PL ATELE T neutrophils 58 % notest ab. Not Available [facility] ([facility]) [address] [facility], [place], [address], 03/31/2025 07:13:36 03/30/20 25 03/31/2025 CBC WITH DIFFE RENTI AL/PL ATELE T lymphs 31 % notest ab. Not Available [facility] ([facility]) [address] [facility], [place], [address], 03/31/2025 07:13:36 03/30/20 25 03/31/2025 CBC WITH DIFFE RENTI AL/PL ATELE T monocytes 7 % notest ab. Not Available [facility] ([facility]) [address] [facility], [place], [address], 03/31/2025 07:13:36 03/30/20 25 03/31/2025 CBC WITH DIFFE RENTI AL/PL ATELE T eos 3 % notest ab. Not Available [facility] ([facility]) [address] [facility], [place], [address], 03/31/2025 07:13:36 03/30/2003/31/2025 CBC WITH DIFFE RENTI AL/PL ATELE T basos 1 % notest ab. Not Available [facility] ([facility]) [address] [facility], [place], [address], 03/31/2025 07:13:36 03/30/20 25 03/31/2025 CBC WITH DIFFE RENTI AL/PL ATELE T neutrophils (absolute) 4.6 x10e3 /uL 1.4-7. 0 Not Available [facility] ([facility]) [address] [place], [address], 03/31/2025 07:13:36 03/30/20 25 03/31/2025 CBC WITH DIFFE RENTI AL/PL ATELE T lymphs (absolute) 2.5 x10e3 /uL 0.7-3. 1 Not Available [facility] ([facility]) [address] [facility], [place], [address], 03/31/2025 07:13:36 03/30/2003/31/2025 CBC WITH DIFFE RENTI AL/PL ATELE T monocytes(ab solute) 0.5 x10e3 /uL 0.1-0. 9 Not Available [facility] ([facility]) [address] [facility], [place], [address], 03/31/2025 07:13:36 03/30/20 25 03/31/2025 CBC WITH DIFFE RENTI AL/PL ATELE T eos (absolute) 0.2 x10e3 /uL 0.0-0. 4 Not Available [facility] ([facility]) [address] [place], [address], 03/31/2025 07:13:36 03/30/2003/31/2025 CBC WITH DIFFE RENTI AL/PL ATELE T baso (absolute) 0.1 x10e3 /uL 0.0-0. 2 Not Available [facility] ([facility]) [address] [place], [address], 03/31/2025 07:13:36 03/30/20 25 03/31/2025 CBC WITH DIFFE RENTI AL/PL ATELE T immature granulocytes 0 % notest ab. Not Available [facility] ([facility]) [address] [place], [address], 03/31/2025 07:13:36 03/30/20 25 03/31/2025 CBC WITH DIFFE RENTI AL/PL ATELE T immature grans (abs) 0.0 x10e3 /uL 0.0-0. 1 Not Available [facility] ([facility]) [address] [facility], [place], [address], 03/31/2025 07:13:36 02/26/20 25 02/24/2025 MAMMO , scree brunilda, digit al, bilat eral No observ ation record ed. [facility] [address], [place], [address], 03/01/2025 13:53:33 04/26/20 25 04/25/2025 US, thyro id No observ ation record ed. [facility] [address], [place], [address], 05/05/2025 18:12:08 04/27/20 25 04/25/2025 XR, knee, 3 view No observ ation record ed. [facility] [address], [place], [address], 05/05/2025 18:12:09 04/27/20 25 04/25/2025 US, thyro id No observ ation record ed. [facility] [address], [place], [address], 05/05/2025 18:12:09 Result Notes None recorded. Problems Name Problem SNOMED Code Status Onset Date Resolution Date Notes Provider Name and Address Organization Details Recorded Time Long-term drug therapy Active 2023 JOSEPH Crenshaw Attn: Zahida gaming,[address] [facility], [place], [address], [place] [facility] 15:47:33 Gastroesophage al reflux disease without esophagitis 541504472 Active 2023 JOSEPH Crenshaw Attn: Zahida gaming,[address] [facility], [place], [address], [place] [facility] 4 22:36:59 Cobalamin deficiency 400854677 Active 2023 JOSEPH Crenshaw Attn: Zahida gaming,[address] [facility], [place], [address], [place] [facility] 4 22:37:00 Hyperlipidemia 67247534 Active 2023 JOSEPH Crenshaw Attn: Zahida gaming,[address] [facility], [place], [address], [place] - SIF 4 22:37:03 Body mass index 25-29 - overweight 337356393 Active 2024 Ivis Yeh null, [place] - [facility] 5 16:05:54 Subarachnoid hemorrhage 65103467 Active 2024 JOSEPH Crenshaw Attn: Zahida gaming,[address] [facility], [place], [address], [facility] - SIF 5 08:07:10 Overweight 116807185 Active 2024 JOSEPH Crenshaw Attn: Zahida gaming,[address] [facility], [place], [address], [facility] - SIF 5 08:07:21 History of alcoholism 668605400 Active 2024 JOSEPH Crenshaw Attn: Zahida gaming,[address] [facility], [place], [address], [facility] - SIF 5 08:07:37 Moderate cognitive impairment [id number] Active 2024 JOSEPH Crenshaw Attn: Zahida gaming,[address] [facility], [place], [address], [facility] - SIF 5 08:07:48 Problem Notes None recorded. Procedures Surgical History Date Name Laterality Status Provider Name and Address Organization Details Recorded Time hernia repair completed Nikkie Pickering MA [facility] 08/25/2024 12:46:39 section completed Nikkie Pickering MA [facility] 08/25/2024 12:47:19 Imaging Results None recorded. Procedure Notes None recorded. Medical Equipment None Reported. Allergies Allergen ID Allergen Name Allergen Category Reaction Reaction Severity Criticality Documentation Date Start Date Code Code System Note Provider Name and Address Organization Details Recorded Time [id number] Product containin g penicilli n (product) medicatio n Not available Not available Not available 04/25/2025 66397 8001 SNOMED Ivis ortiz, [facility] 14:57:07 457332 cephalexi n medicatio n Not available Not available Not available 04/25/2025 2231 RxNorm Ivis Yeh [facility], [facility] 14:57:14 015892 clindamyc in Not available Not available Not available Not available 04/25/2025 2582 RxNorm Ivis Yeh [facility], [facility] 14:57:21 Medications Name Sig Start Date Stop Date Status Note LastModified by Organization Details LastModified Time latanoprost 0.005 % eye drops active Not Available Not Available Not Available atorvastatin 20 mg tablet Take 1 tablet every day by oral route in the evening for 30 days. 2024 active Not Available Not Available Not Avai lable trazodone 50 mg tablet Take 1 tablet every day by oral route at bedtime for 30 days. 2024 active Not Available Not Available Not Avai lable hydrocodone 5 mg-acetamino phen 325 mg tablet TAKE 1 TABLET BY MOUTH EVERY 6 HOURS NEEDED FOR PAIN OR ACUTE PAIN 08/24 completed Not Available Not Available Not Available senna 8.6 mg tablet Take 2 tablets every day by oral route for 30 days. 2024 active Not Available Not Available Not Avai lable ciprofloxaci n 500 mg tablet Take 1 tablet every 12 hours by oral route. 12/20 completed Not Available Not Available Not Available pantoprazole 40 mg tablet,delay ed release Take 1 tablet every day by oral route for 30 days. 2024 active Not Available Not Available Not Avai lable aspirin 81 mg tablet Take 1 tablet every day by oral route. active Not Available Not Available No t Available midodrine 2.5 mg tablet Take 1 tablet 3 times a day by oral route for 30 days. 2024 active Not Available Not Available Not Avai lable docusate sodium 100 mg tablet Take 1 tablet every day by oral route for 30 days. 2024 active Not Available Not Available Not Avai lable bisacodyl active Not Available Not Deena ilable [...] 102/70 mm[Hg] JOSEPH Crenshaw Attn: Accounting[address] [place], [address], [facility] 01/20/2025 15:21:45 Date Recorded Body height Body mass index (BMI) Body weight Heart rate Oxygen saturation Oxygen saturation in Arterial blood by Pulse oximetry Systolic And Diastolic Provider Name and Address Organization Details Last Updated DateTime 5 162.56 cm 28.8 kg/m2 48665.5 2 g 73 /min 98 % 98 % 120/70 mm[Hg] Jovon Hernandez MA [facility] 14:58:25 Date Recorded Respiratory rate Systolic And Diastolic Provider Name and Address Organization Details Last Updated DateTime 08/24/2024 18 /min 122/70 mm[Hg] JOSEPH Crenshaw Attn: Accounting[address] [place], [address], [facility] 08/24/2024 15:53:30 Date Recorded Body height Body mass index (BMI) Body weight Oxygen saturation Oxygen saturation in Arterial blood by Pulse oximetry Heart rate Systolic And Diastolic Provider Name and Address Organization Details Last Updated DateTime 162.56 cm 27.1 kg/m2 79528.7 4 g 97 % 97 % 92 /min 118/72 mm[Hg] Nikkie Pickering MA [place] [facility] 14:58:01 Social History Question Answer Notes LastModified by Organizat ion Details LastModified Time Tobacco Smoking Status Current Every Day Smoker Nikkie Pickering MA null, [facility] 08/24/2024 15:04:20 Do You Have An Advance [...] anxious, or unable to sleep at night)? [id number] Information not available 01/20/2025 Family History Relationship [...] 12:50:10 Brother Hypercholest erolemia crevisma Not available 09/26/ 2024 12:50:33 Mother Diabetes mellitus crevisma Not available [...] SNOMED-CT Code Diagnosis ICD10 Code Diagnosis Note [id number] Jules Bliss MD [facility] [address] [place] [address] 08/24/2024 14:40:25 08/24/2024 16:11:29 Subarachnoid hemorrhage 11127777 I60.9 Patient does have some post subarachno id hemorrhage sequelae related to some memory disturbanc e Gastroesop hageal reflux disease without esophagitis 415635783 K21.9 Continue pantoprazo le 40 mg daily Hyperlipidemia 20522974 E78.5 Continue atorvastat in 20 mg daily and check updated fasting lipid panel Long-term drug therapy 612669197 Z79.899 Routine labs including CBC, liver function, metabolic panel and thyroid are due Cobalamin deficiency 190 827593 E53.8 History of B12 deficiency , patient is due for updated labs Screening mammography 24 131068 Z12.31 Annual mammogram ordered [id number] Jules Bliss MD [facility] [address] [place] [address] 01/20/2025 14:33:14 01/20/2025 16:05:24 Hyperlipidemia 38799440 E78.5 Patient is on atorvastat in 20 mg daily and due in January for fasting lipid panel Gastroesop hageal reflux disease without esophagitis 332656446 K21.9 Continue pantoprazo le 40 mg daily. This needs to be on her medication list and was added to her assisted living papers a few weeks back. Subarachno id hemorrhage 98835854 I60.9 Patient does have some post subarachno id hemorrhage sequelae related to some memory disturbanc e. jan [address] angiogram head to evaluate area of trauma to r/o any aneurysm, etc. her subarachno id has healed but a shadow is presen. Cobalamin deficiency 190 155295 E53.8 History of B12 deficiency , patient is due for updated labs Long-term drug therapy 724113416 Z79.899 Routine labs including CBC, liver function, metabolic panel and thyroid are due in January Body mass index 25-29 - overweight 965307877 Z68.28 BMI 28.8 Overweight 454196964 E66 .3 History of alcoholism 16 3505558 F10.21 Moderate c ognitive impairment 963505239 R41.9 Health Concerns Section Related Observation LastModified by Organization Detai ls LastModified Time None Recorded Concern Status LastModified by Organization Details LastModified Time None Recorded Advance Directives Directive N: Payers Insurance Date Sequence Insurance Name Policy Number Policy Michael Covered Member ID Michael Member ID Guarantor Name 05/30/2025 1 [place] (MEDICARE REPLACEMENT/A DVANTAGE - HMO) [id number] [place] [employer] [id number] [place] [employer] Notes Date Note Type Note Provider Name and Address Organization Details Recorded Time 08/24/2024 text/html Reflux/GERDRepor steven bypatient.Notes:Gail ent does have underlying history of acid reflux and is supposed to be taking her pantoprazole 40 mg daily. She denies any symptom breakthrough Patient is now at an assisted living facility after she suffered a severe fall that resulted in brain bleed and extended hospital stay and rehabilitation after. Family put her into assisted living at this time at [facility]. Patient has long history of alcohol abuse. [...] atorvastatin daily. JOSEPH Crenshaw Attn: Accounting[address] [facility], [place], [address], [facility] 09/18/2024 22:37:26 01/20/2025 text/html Reflux/GERDRepor steven bypatient.Notes:Gail ent does have underlying history of acid reflux and is supposed to be taking her pantoprazole 40 mg daily. She denies any symptom breakthrough Patient is now at an assisted living facility after she suffered a severe fall that resulted in brain bleed and extended hospital stay and rehabilitation after. Family put her into assisted living at this time at [facility]. Patient has long history of alcohol abuse. [...] atorvastatin daily. JOSEPH Crenshaw Attn: Accounting[address] [facility], [place], [address], [facility] 01/31/2025 08:08:11 OBGyn Episode No OBEpisode recorded.
--- OUTSIDE RECORDS SUMMARY | 2025-06-05 10:34 | XMS_ITS | Clinical Summary ---
Author Organization [facility] Oswaldoolegduncan Pedro Address [address] [place] [address] Care Team Providers Care Metal Furniture Repairer Name Role Phone Anabel Epstein Primary Care Provider [phone] Allergies Active Allergy Reactions Criticality Noted Date [...] Date Hereditary hemochromatosis 07/09/2020 Chronic anemia 07/09/2020 Encounters Date Type Department Care Team Description 04/28/2025 1:00 PM CDT Office Visit [facility] Oncology and Hematology - [place] [address] [place] [address] Bebo Hooper MD Hereditary hemochromatosis (Primary Dx) 04/28/2025 Orders Only [facility] Oncology and Hematology - [place] [address] [place] [address] Bebo Hooper MD from Last 3 Months Family History Medical History Relation Name Comments [...] on file Legal Sex Female 5:18 PM [employer]IFIC[employer] CH[employer]Y [employer]KER Gender Identity Not on file Sexual Orientation Not on file Last Filed Vital Signs Vital Sign Reading Time Taken Comments Blood Pressure 110/70 04/28/2025 1:03 PM CDT Pulse 95 04/28/2025 1:03 PM CDT Temperature 36.9 C (98.5 F) 04/28/2025 1:03 PM CDT Respiratory Rate 15 04/28/2025 1:03 PM CDT Oxygen Saturation 95% 04/28/2025 1:03 PM CDT Inhaled Oxygen Concentration - - Weight 75 kg (165 lb 6.4 oz) 04/28/2025 1:03 PM CDT Height 162.6 cm (5' 4) 08/20/2022 11:38 AM CDT Body Mass Index 28.39 08/20/2022 11:38 AM CDT Plan of Treatment Upcoming Encounters Date Type Department Care Team (Late st Contact Info) Description 11/03/2025 12:45 PM ARTIFICIAL CHERRY MAKER Office Visit [facility] Oncology and Hematology - [place] [address] [facility] [address] [place] [address] Bebo Hooper MD [address] [facility] [address] [place] [address] Health Maintenance Due Date Last Done Comments Pre-Diabetes and Diabetes Screening 1960 PNEUMOCOCCAL VACCINE 50+ YEARS (1 of 2 - PCV) 12/27/18 78 BREAST CANCER SCREENING 1998 FIT-DNA Q 3 years 2003 FIT/FOBT Q 1 year 2003 Flex Sig/CT Colonography Q 5 years 2003 ZOSTER VACCINE (1 of 2) 2008 OSTEOPOROSIS SCREENING 2023 INFLUENZA VACCINE (#1) 2025 COLORECTAL SCREENING 05/14/2030 05/14/2020 Colorectal Cancer Screening 05/14/2030 RSV VACCINE (60+ or ) (1 - 1-dose 75+ series) 2033 DTAP/TDAP/TD VACCINES (2 - Td or Tdap) 02/05/2034 Procedures Procedure Name Priority Date/Time Associated Diagnosis Comments CBC WITH DIFFERENTIAL Routine 04/25/2025 3:20 PM CDT IRON PANEL Routine 04/25/2025 3:03 PM CDT from Last 3 Months Results * CBC WITH DIFFERENTIAL (04/25/2025 3:20 PM CDT) Blood us Bebo Hooper MD HEMATOLOGY ORDERABLES Final Res ult * IRON PANEL (04/25/2025 3:03 PM CDT) Blood us Bebo Hooper MD CHEMISTRY ORDERABLES Final Resu lt from Last 3 Months Insurance Care Teams Metal Furniture Repairer Relationship Specialty Start Date End Date Anabel Epstein PA PCP - General Physician Solutions Architect 07/05/20
--- OUTSIDE RECORDS SUMMARY | 2025-06-05 10:34 | XMS_ITS | Continuity of Care Document ---
Author Organization [facility] Address [address] [place] [address] [address] [place] [address] Phone Care Team Providers Care Driller'S Offsider Name Role Phone Yuniel Barron Unavailable Unavailable Procedures Procedure Date Eye Exam & Treatment Refraction Advance Directives Directive Yes / No Effective Date File Name No Information Encounters Encounter Description Practice Location Reason(s) For Visit Diagnoses Date Provider Providers Copied on Encounter [facility], [id number] [place] [address] [address], [place], [place], [id number], [place] tel:[phone] [facility] No Information [address] [facility] , [address], [place], [address], [place]. tel:[phone] Family History Family Member Type Diagnosis Age At Onset No Information Payers Payer name Insurance type Covered constitution party ID Authoriza tion(s) [employer] [place] [employer] [place] [id number] Social History Type Description Quantity Date Captured [...]
--- OUTSIDE RECORDS SUMMARY | 2025-06-05 10:34 | XMS_ITS | Data Portability ---
Author Organization [place] - [facility] [place], Main Office Address [address] [place] [address] Assessment No assessment recorded. Plan of Treatment Reminders Order Date Submit Date Provider Last Modified By Organization Details Last Modified Time Details Appointments None recorded. Lab lipid panel, serum 2022 023 BRANDON [facility], [address] [facility], [facility] [address], [place], [address], 3 10:22:17 TSH + free T4, serum 2022 023 BR[facility]ON [facility], [address] [facility], [facility], [place], [address], 3 10:22:16 HbA1c (hemoglobin A1c), blood 2022 023 BRANDON [facility], [address] [facility], [facility], [place], [address], 3 10:22:17 BMP, serum or plasma 2022 023 BRANDON [facility], [address] [facility], [address], [place], [address], 3 10:22:17 gamma-gluta myl transferase (ggt), serum 2022 023 [email or web address] [facility], [address] [facility], [address], [place], [address], 3 10:07:43 hepatic function panel, serum 2022 023 BRANDON [facility], [address], [address], [place], [address], 3 10:22:17 lipid panel, serum 2022 023 [email or web address] 146 [facility], [address], [address], [place], [address], 15:13:18 TSH + free T4, serum 2022 023 BRANDON [facility], [address], [address], [place], [address], 3 09:17:45 HbA1c (hemoglobin A1c), blood 2022 023 [email or web address] 146 [facility], [address], [address], [place], [address], 15:13:18 BMP, serum or plasma 2022 023 [email or web address] 146 [facility], [address], [address], [place], [address], 15:13:18 gamma-gluta myl transferase (ggt), serum 2022 023 [email or web address] 146 [facility], [address], [address], [place], [address], 15:13:50 hepatic function panel, serum 2022 023 [email or web address] 146 [facility], [address], [address], [place], [address], 15:13:50 hepatitis panel (A+B+C), acute, serum 2022 023 [email or web address] 146 [facility], [address], [address], [place], [address], 15:13:18 Referral None recorded. Procedures None recorded. Surgeries None recorded. Imaging MAMMO, screening, digital, bilateral 2022 023 [email or web address] [facility], [address], [place], [address], 4 09:10:11 DEXA 2022 023 [email or web address] [facility], [address], [address], [place], [address], 4 09:10:11 US, duplex, venous, lower extremity, unilateral 2022 023 [email or web address] Not available 4 09:10:11 MAMMO, screening, digital, bilateral 2022 023 [email or web address] [facility], [address], [place], [address], 3 14:14:58 DEXA 2022 023 [email or web address] [facility], [address], [place], [address], 3 14:15:14 Medication Orders pantoprazol e 40 mg tablet,earnestine yed release 2022 023 BRANDON [facility] [id number], [address], 3 09:45:32 Patient TargetsNo targets recorded. Patient InstructionsNo instructions recorded. Reason for Referral None Reported. Results Created Date Observation Date Name Description Value Unit Range Abnormal Flag Note LastModifiedBy Organization Detail LastModifiedTime 05/12/20 22 05/13/2022 ESVIN TIN ferritin 373 NG/mL 15-150 above high normal Not Available [facility] ([facility]) [address] [facility], [place], [address], 05/13/2022 04:36:28 05/12/20 22 05/13/2022 IRON AND TIBC iron bind.cap.(TI BC) <295 ug/dL 250-45 0 Not Available [facility] ([facility]) [address] [facility] [place], [address], 05/13/2022 04:36:28 05/12/20 22 05/13/2022 IRON AND TIBC UIBC <17 ug/dL 118-36 9 below low normal Ricardo ified by repea t clayton sis Not Available [facility] ([facility]) [address] [facility] [place], [address], 05/13/2022 04:36:28 05/12/20 22 05/13/2022 IRON AND TIBC iron 278 ug/dL 27-139 alert high Not Available [facility] ([facility]) [address] [place], [address], 05/13/2022 04:36:28 05/12/20 22 05/13/2022 IRON AND TIBC iron saturation >94 % 15-55 alert high Not Available [facility] ([facility]) [address] [place], [address], 05/13/2022 04:36:28 05/12/20 22 05/13/2022 HEPAT IC FUNCT ION PANEL (7) protein, total 6.7 g/dL 6.0-8. 5 Not Available [facility] ([facility]) [address] [place], [address], 05/13/2022 04:36:27 05/12/20 22 05/13/2022 HEPAT IC FUNCT ION PANEL (7) albumin 4.6 g/dL 3.8-4. 8 Not Available [facility] ([facility]) [address] [place], [address], 05/13/2022 04:36:27 05/12/20 22 05/13/2022 HEPAT IC FUNCT ION PANEL (7) bilirubin, total 0.7 mg/dL 0.0-1. 2 Not Available [facility] ([facility]) [address] [facility] [place], [address], 05/13/2022 04:36:27 05/12/20 22 05/13/2022 HEPAT IC FUNCT ION PANEL (7) bilirubin, direct 0.17 mg/dL 0.00-0 .40 Not Available [facility] ([facility]) [address] [facility] [place], [address], 05/13/2022 04:36:27 05/12/20 22 05/13/2022 HEPAT IC FUNCT ION PANEL (7) alkaline phosphatase 109 IU/L 44-121 Not Available [facility]) [address] [facility] [place], [address], 05/13/2022 04:36:27 05/12/20 22 05/13/2022 HEPAT IC FUNCT ION PANEL (7) AST (SGOT) 25 IU/L 0-40 Not Available [facility] ([facility]) [address] [facility] [place], [address], 05/13/2022 04:36:27 05/12/20 22 05/13/2022 HEPAT IC FUNCT ION PANEL (7) ALT (SGPT) 16 IU/L 0-32 Not Available [facility] ([facility]) [address] [place], [address], 05/13/2022 04:36:27 05/12/20 22 05/13/2022 BASIC METAB OLIC PANEL (8) glucose 96 mg/dL 65-99 Not Available [facility] ([facility]) [address] [facility] [place], [address], 05/13/2022 04:36:27 05/12/20 22 05/13/2022 BASIC METAB OLIC PANEL (8) BUN 21 mg/dL 8-27 Not Available [facility] ([facility]) [address] [place], [address], 05/13/2022 04:36:27 05/12/20 22 05/13/2022 BASIC METAB OLIC PANEL (8) creatinine 0.88 mg/dL 0.57-1 .00 Not Available [facility] ([facility]) [address], [place], [address], 05/13/2022 04:36:27 05/12/20 22 05/13/2022 BASIC METAB OLIC PANEL (8) eGFR 74 mL/mi n/1.7 3 >59 Not Available [facility] ([facility]) [address] [place] [place], [address], 05/13/2022 04:36:27 05/12/20 22 05/13/2022 BASIC METAB OLIC PANEL (8) BUN/creatini ne ratio 24 12-28 Not Available [facility]) [address] [facility], [place], [address], 05/13/2022 04:36:27 05/12/20 22 05/13/2022 BASIC METAB OLIC PANEL (8) sodium 137 mmol/ L 134-14 4 Not Available [facility] ([facility]) [address] [facility] [place], [address], 05/13/2022 04:36:27 05/12/20 22 05/13/2022 BASIC METAB OLIC PANEL (8) potassium 4.8 mmol/ L 3.5-5. 2 Not Available [facility] ([facility]) [address] [place] [place], [address], 05/13/2022 04:36:27 05/12/20 22 05/13/2022 BASIC METAB OLIC PANEL (8) chloride 100 mmol/ L 96-106 Not Available [facility] ([facility]) [address] [facility] [place], [address], 05/13/2022 04:36:27 05/12/20 22 05/13/2022 BASIC METAB OLIC PANEL (8) carbon dioxide, total 23 mmol/ L 20-29 Not Available [facility] ([facility]) [address] [place], [address], 05/13/2022 04:36:27 05/12/20 22 05/13/2022 BASIC METAB OLIC PANEL (8) calcium 9.9 mg/dL 8.7-10 .3 Not Available [facility] ([facility]) [address] [place], [address], 05/13/2022 04:36:27 05/12/20 22 05/13/2022 CBC WITH DIFFE RENTI AL/PL ATELE T MCV 99 fL 79-97 above high normal Not Available [facility] ([facility]) [address] [place], [address], 05/13/2022 04:36:26 05/12/20 22 05/13/2022 CBC WITH DIFFE RENTI AL/PL ATELE T WBC 7.1 x10e3 /uL 3.4-10 .8 Not Available [facility] ([facility]) [address] [place], [address], 05/13/2022 04:36:26 05/12/20 22 05/13/2022 CBC WITH DIFFE RENTI AL/PL ATELE T RBC 4.69 x10e6 /uL 3.77-5 .28 Not Available [facility] ([facility]) [address] [place], [address], 05/13/2022 04:36:26 05/12/20 22 05/13/2022 CBC WITH DIFFE RENTI AL/PL ATELE T hemoglobin 15.8 g/dL 11.1-1 5.9 Not Available [facility] ([facility]) [address] [place], [address], 05/13/2022 04:36:26 05/12/20 22 05/13/2022 CBC WITH DIFFE RENTI AL/PL ATELE T hematocrit 46.4 % 34.0-4 6.6 Not Available [facility] ([facility]) [address] [place], [address], 05/13/2022 04:36:26 05/12/20 22 05/13/2022 CBC WITH DIFFE RENTI AL/PL ATELE T MCH 33.7 pg 26.6-3 3.0 above high normal Not Available [facility] ([facility]) [address] [place], [address], 05/13/2022 04:36:26 05/12/20 22 05/13/2022 CBC WITH DIFFE RENTI AL/PL ATELE T MCHC 34.1 g/dL 31.5-3 5.7 Not Available [facility] ([facility]) [address] [place], [address], 05/13/2022 04:36:26 05/12/20 22 05/13/2022 CBC WITH DIFFE RENTI AL/PL ATELE T RDW 13.2 % 11.7-1 5.4 Not Available [facility] ([facility]) [address] [place], [address], 05/13/2022 04:36:26 05/12/20 22 05/13/2022 CBC WITH DIFFE RENTI AL/PL ATELE T platelets 188 x10e3 /uL 150-45 0 Not Available [facility] ([facility]) [address] [place], [address], 05/13/2022 04:36:26 05/12/20 22 05/13/2022 CBC WITH DIFFE RENTI AL/PL ATELE T neutrophils 58 % not estab. Not Available [facility] ([facility]) [address] [place], [address], 05/13/2022 04:36:26 05/12/20 22 05/13/2022 CBC WITH DIFFE RENTI AL/PL ATELE T lymphs 29 % not estab. Not Available [facility] ([facility]) [address] [facility], [place], [address], 05/13/2022 04:36:26 05/12/20 22 05/13/2022 CBC WITH DIFFE RENTI AL/PL ATELE T monocytes 8 % not estab. Not Available [facility] ([facility]) [address] [facility], [place], [address], 05/13/2022 04:36:26 05/12/20 22 05/13/2022 CBC WITH DIFFE RENTI AL/PL ATELE T eos 4 % not estab. Not Available [facility] ([facility]) [address] [facility], [place], [address], 05/13/2022 04:36:26 05/12/20 22 05/13/2022 CBC WITH DIFFE RENTI AL/PL ATELE T basos 1 % not estab. Not Available [facility] ([facility]) [address] [facility], [place], [address], 05/13/2022 04:36:26 05/12/20 22 05/13/2022 CBC WITH DIFFE RENTI AL/PL ATELE T immature cells rn hematology Not Available [facility] ([facility]) [address] [facility], [place], [address], 05/13/2022 04:36:26 05/12/20 22 05/13/2022 CBC WITH DIFFE RENTI AL/PL ATELE T neutrophils (absolute) 4.1 x10e3 /uL 1.4-7. 0 Not Available [facility] ([facility]) [address] [place], [address], 05/13/2022 04:36:26 05/12/20 22 05/13/2022 CBC WITH DIFFE RENTI AL/PL ATELE T lymphs (absolute) 2.1 x10e3 /uL 0.7-3. 1 Not Available [facility] ([facility]) [address] [facility], [place], [address], 05/13/2022 04:36:26 05/12/20 22 05/13/2022 CBC WITH DIFFE RENTI AL/PL ATELE T monocytes(ab solute) 0.5 x10e3 /uL 0.1-0. 9 Not Available [facility] ([facility]) [address] [facility], [place], [address], 05/13/2022 04:36:26 05/12/20 22 05/13/2022 CBC WITH DIFFE RENTI AL/PL ATELE T eos (absolute) 0.3 x10e3 /uL 0.0-0. 4 Not Available [facility] ([facility]) [address] [facility], [place], [address], 05/13/2022 04:36:26 05/12/20 22 05/13/2022 CBC WITH DIFFE RENTI AL/PL ATELE T baso (absolute) 0.1 x10e3 /uL 0.0-0. 2 Not Available [facility] ([facility]) [address] [facility], [place], [address], 05/13/2022 04:36:26 05/12/20 22 05/13/2022 CBC WITH DIFFE RENTI AL/PL ATELE T immature granulocytes 0 % not estab. Not Available [facility] ([facility]) [address] [facility], [place], [address], 05/13/2022 04:36:26 05/12/20 22 05/13/2022 CBC WITH DIFFE RENTI AL/PL ATELE T immature grans (abs) 0.0 x10e3 /uL 0.0-0. 1 Not Available [facility] ([facility]) [address] [facility], [place], [address], 05/13/2022 04:36:26 05/12/20 22 05/13/2022 CBC WITH DIFFE RENTI AL/PL ATELE T NRBC rn hematology Not Available [facility] ([facility]) [address], [place], [address], 05/13/2022 04:36:26 05/12/20 22 05/13/2022 CBC WITH DIFFE RENMALCOM AL/PL ATELE T hematology comments: rn hematology Not Available [facility] ([facility]) [address], [place], [address], 05/13/2022 04:36:26 09/11/20 22 09/11/2022 MAMMO , scree brunilda, digit al, bilat eral No observ ation record ed. [id number] [facility] (Mammography) [address], [place], [address], 01/28/2023 01:07:20 Result Notes None recorded. Problems Name Problem SNOMED Code Status Onset Date Resolution Date Notes Provider Name and Address Organization Details Recorded Time Benign hypertensi on 32955680 Active Not Available [facility] 3 00:58:15 Serum iron above reference range 082229553 Active 2021 Not Available [facility] 3 00:58:15 Mammograph y abnormal 073036593 Active Not Available [facility] 3 00:58:15 Cobalamin deficiency 693711545 Active 2021 Not Available [facility] 3 00:58:15 Gastroesop hageal reflux disease 204015473 Active 2021 Not Available [facility] 3 00:58:15 Anemia 060060595 Active 2021 Not Available [facility] 3 00:58:15 Depressive disorder 73112531 Active 2021 Not Available [facility] 3 00:58:15 Serum ferritin above reference range 646817113 Active 2021 Not Available [facility] 3 00:58:15 Impaired fasting glycemia 954032514 Active Not Available [facility] 3 00:58:15 Hyperlipid emia 28724709 Active Not Available [facility] 3 00:58:15 Liver enzymes level above reference range 120470741 Active Not Available [facility] 3 00:58:15 Thyroid function tests abnormal 562942581 Active 2022 JOSEPH Crenshaw [address], [address], [place], [address] , [place] - [employer] 3 11:47:30 Fracture of humerus 92666585 Active 2022 JOSEPH Crenshaw [address], [address], [place], [address] , [place] - [employer] [facility] 3 17:21:22 Localized swelling of left lower limb 9629010151628 9101 Active 2022 JOSEPH Crenshaw [address], [address], [place], [address] , [employer] - [employer] [facility] 3 14:53:51 Problem Notes None recorded. Procedures Surgical History Date Name Laterality Status Provider Name and Address Organization Details Recorded Time 05/14/20 Date of Last Colonoscopy completed Not Available [facility] 01/28/2023 00:50:45 05/11/20 Colonoscopy completed Not Available [facility] 01/29/20 00:50:48 11/30/18 98 Appendectomy completed Not Available [facility] 023 00:50:48 11/30/18 86 section completed Not Available [facility] 11/2022 00:50:48 11/30/18 85 Hernia Repair completed Not Available [facility] 2022 00:50:48 [employer] Surgery completed Not Available [facility] 01/28/2023 00:50:48 other completed Not Available [facility] 11/2022 00:50:48 Imaging Results None recorded. Procedure Notes None recorded. Medical Equipment None Reported. Allergies Allergen ID Allergen Name Allergen Category Reaction Reaction Severity Criticality Documentation Date Start Date Code Code System Note Provider Name and Address Organization Details Recorded Time 1478 Product containin g penicilli n (product) medicatio n anaphylax is Not available Not available 01/28/2023 98551 8001 SNOMED Not Available [facility] 3 01:06:46 1479 clindamyc in Not available anaphylax is Not available Not available 01/28/2023 2582 RxNorm Not Available [facility] 3 01:06:46 Medications Name Sig Start [...] azelastine 137 mcg (0.1 %) nasal spray [place] 2 sprays twice a day by intranasa [...] % 104 /min 16 /min 97.4 [degF] 43467.2 2 g 142/90 mm[Hg] Not Available [facility] 3 00:55:02 Date Recorded Body height Body temperature Body mass index (BMI) Body weight Respiratory rate Oxygen saturation Oxygen saturation in Arterial blood by Pulse oximetry Heart rate Systolic And Diastolic Provider Name and Address Organization Details Last Updated DateTime 3 163.83 cm 97.8 [degF] 25.3 kg/m2 74748.8 6 g 16 /min 99 % 99 % 103 /min 138/80 mm[Hg] JOSETTE Myles [facility] 3 11:26:12 Date Recorded Body mass index (BMI) Body height Oxygen saturation Oxygen saturation in Arterial blood by Pulse oximetry Heart rate Respiratory rate Body temperature Body weight Systolic And Diastolic Provider Name and Address Organization Details Last Updated DateTime 2 22.9 kg/m2 163.83 cm 97 % 97 % 93 /min 16 /min 97.3 [degF] 83337.4 1 g 120/72 mm[Hg] Not Available [facility] 3 00:55:02 Date Recorded Body mass index (BMI) Body height Oxygen saturation Oxygen saturation in Arterial blood by Pulse oximetry Heart rate Respiratory rate Body temperature Body weight Systolic And Diastolic Provider Name and Address Organization Details Last Updated DateTime 2 24.7 kg/m2 163.83 cm 98 % 98 % 75 /min 16 /min 97.3 [degF] 94872.4 9 g 110/72 mm[Hg] Not Available [facility] 3 00:55:02 Date Recorded Systolic And Diastolic Provider Name and Address Organization Details Last Updated DateTime 11/04/2023 148/80 mm[Hg] JOSEPH Crenshaw [address] [place] [address], [phone], [facility] 11/04/2023 14:27:54 Date Recorded Body height Body mass index (BMI) Body weight Respiratory rate Oxygen saturation Oxygen saturation in Arterial blood by Pulse oximetry Heart rate Provider Name and Address Organization Details Last Updated DateTime 3 163.83 cm 25.9 kg/m2 46685.6 3 g 16 /min 98 % 98 % 89 /min JOSETTE Myles [facility] 14:22:58 Social History Question Answer Notes LastModified by Organizat ion Details LastModified Time Tobacco Smoking Status Current Every Day Smoker Not Available [facility] 01/28/2023 00:47:51 What Is Your Level Of Caffeine Consumption? None [id number] Information not available 01/28/2023 How Much Tobacco Do You Chew? None [id number] 9086 Information not available 01/28/2023 In The 14 Days Before Symptom Onset, Have You Had Close Contact With A Laboratory-confirm ed COVID-19 While That Case Was Ill? No [id number] Information not available 01/28/2023 In The 14 Days Before Symptom Onset, Have You Had Close Contact With A Person Who Is Under Investigation For COVID-19 While That Person Was Ill? No [id number] 3703 Information not available 01/28/2023 What Type Of Diet Are You Following? REGULAR [id number].[id number] 2862 Information not available 01/28/2023 Which Illicit Or Recreational Drugs Have You Used? None [id number] 1717 Information not available 01/28/2023 Have There Been Any Changes To Your Family Or Social Situation? No [id number].[id number] 7249 Information not available 01/28/2023 Are There Any Guns Present In Your Home? No MIGRATION.543360 2595 Information not available 01/28/2023 Do You Use Insect Repellent Routinely? No [id number].[id number] 2536 Information not available 01/28/2023 What Was The Date Of Your Most Recent Tobacco Screening? 05/08/2021 [id number] 1383 Information not available 01/28/2023 What Is Your Relationship Status? MIGRATION.[id number] 8882 Information not available 01/28/2023 Do You Use Your Seat Belt Or Car Seat Routinely? Yes [id number].[id number] 2831 Information not available 01/28/2023 Do You Have Smoke And Carbon Monoxide Detectors In Your Home? Yes MIGRATION.[id number] 8003 Information not available 01/28/2023 At What Age Did You Start Smoking Tobacco? 28 MIGRATION.549066 6913 Information not available 01/28/2023 How Much Tobacco Do You Smoke? 1 PPD MIGRATION.779977 8168 Information not available 01/28/2023 Do You Use Sunscreen Routinely? Yes MIGRATION.658610 7582 Information not available 01/28/2023 Have You Recently Traveled Abroad? No MIGRATION.125182 1585 Information not available 01/28/2023 Do You Have Any Dietary Restrictions? No MIGRATION.262918 8922 Information not available 01/28/2023 Sex: Unknown Functional Status Question Answer Note LastModified by Organizat ion Details LastModified Time Do you use any illicit or recreational drugs? No MIGRATION.[id number] 7621 Information not available 01/28/2023 Do you or have you ever used any other forms of tobacco or nicotine? No MIGRATION.046705 8187 Information not available 01/28/2023 What is your level of alcohol consumption? None MIGRATION.797597 7266 Information not available 01/28/2023 Do you or have you ever used smokeless tobacco? Never used smokeless tobacco MIGRATION.668181 4529 Information not available 01/28/2023 What is your occupation? [employer] MIGRATION.[id number] 9315 Information not available 01/28/2023 Do you or have you ever used e-cigarettes or vape? Never used electronic cigarettes MIGRATION.[id number] 3466 Information not available 01/28/2023 What is your exercise level? Occasional MIGRATION.163880 7266 Information not available 01/28/2023 Mental Status None recorded. Family History Relationship Description Onset Age of this Age Resolved Age Notes LastModified by Organization Details LastModified Time Father History of heart disorder 68 [id number] Not available 01/28/2023 00:50:53 Sister Hypertensive disorder 63 [id number] Not available 01/28/2023 00:50:53 Medical History Condition Response NERVE DISEASE N BLINDNESS N RHEUMATIC FEVER N KIDNEY STONES N BLADDER PROBLEMS N OTHER # 1 N POLIO N LUNG DISEASE/DISORDER N COPD N RADIATION / CHEMOTHERAPY N Other # 2 N BLOOD DISEASES N SURGERY N EAR OR HEARING PROBLEMS N MUMPS N BOWEL PROBLEMS N DEPRESSION (INCLUDING POST ) N STROKE/TIA N ULCERS N BENIGN PROSTATIC HYPERPLASIA N MEASLES N MYOCARDIAL INFARCTION N OBESITY N GERD/NAUSEA N ANEURYSM N URINARY/BLADDER/KIDNEY PROBLEMS N CORONARY ARTERY DISEASE (CAD) N INPATIENT PSYCH CARE N ADDICTION CONCERNS N ENDOMETRIOSIS N Impotence [...] HAVE YOU BEEN HOSPITALIZED OR SEEN IN TH E ER IN THE PAST YEAR ? N ATHEROSCLEROSIS [...] mcg/0.3 mL dose 1 completed Not Available [facility] 01/28/2023 01:06:36 COVID-19, mRNA, LNP-S, PF, 30 mcg/0.3 mL dose 1 completed Not Available [facility] 01/28/2023 01:06:36 influenza, unspecified formulation 6 completed Not Available [facility] 01/28/2023 01:06:36 Past Encounters Encounter ID Performer Location Encounter Start Date Encounter Closed Date Diagnosis/Indication Diagnosis SNOMED-CT Code Diagnosis ICD10 Code Diagnosis Note [id number] JOSEPH Crenshaw [facility] [place] [address] [facility] [address] [place] [address] 01/30/2021 00:00:00 02/21/2021 21:54:33 [id number] JOSEPH Crenshaw [facility] [place] [address] [facility] [address] [place] [address] 05/08/2021 00:00:00 05/25/2021 11:02:11 [id number] JOSEPH Crenshaw [facility] [place] [address] [place] [address] 08/07/2021 00:00:00 08/29/2021 21:05:41 [id number] JOSEPH Crenshaw [facility] [place] [address] [place] [address] 11/06/2021 00:00:00 11/28/2021 13:15:07 [id number] JOSEPH Crenshaw [facility] [place] [address] [place] [address] 02/12/2022 00:00:00 02/26/2022 21:42:26 [id number] Jules Bliss MD [facility] [place] [address] [place] [address] 05/14/2022 00:00:00 05/29/2022 14:38:19 [id number] JOSEPH Crenshaw [facility] [place] [address] [place] [address] 09/17/2022 00:00:00 09/27/2022 19:43:14 [id number] JOSEPH Crenshaw [facility] [place] [address] [place] [address] 12/29/2022 00:00:00 12/30/2022 12:34:45 [id number] JOSEPH Crenshaw [facility] [place] [address] [place] [address] 04/21/2023 11:20:27 04/21/2023 12:01:38 Liver enzymes level above reference range [id number] R74.01 liver enzymes have increased on last labs. this is likely due to alcohol usage that family has reported she is consuming. she denies any increased alcohol use. updated labs are due with hepatitis screening panel Benign hypertension 1072 5009 I10 stable off medication . Hyperlipidemia 09603323 E78.5 pt is to be on atorvastat in 20mg daily still. fasting labs due Gastroesop hageal reflux disease [id number] K21.9 pt has been encouraged to continue PPI therapy. this is off her med list again, despite recommenda tions. Impaired f asting glycemia [id number] R73.01 screening a1c and bmp due Thyroid fu nction tests abnormal [id number] R94.6 4.150 on TSH last labs. due for repeat . Free t4 was still in range. Screening mammography 24 720191 Z12.31 mammogram due in aug. Postmenopausal state 764 63733 Z78.0 dexa scan due. [id number] JOSEPH Crenshaw [facility] [place] [address] [place] [address] 11/04/2023 14:11:58 11/04/2023 14:58:40 Benign hypertension [id number] I10 stable off medication . Liver enzy mes level above reference range 298228273 R74.01 liver enzymes have increased on last labs. this is likely due to alcohol usage that family has reported she is consuming. she denies any increased alcohol use. updated labs are due with hepatitis screening panel Hyperlipidemia 61273233 E78.5 pt is to be on atorvastat in 20mg daily still. fasting labs due Gastroesop hageal reflux disease 308366195 K21.9 pt has been encouraged to continue PPI therapy. this is off her med list again, despite recommenda tions. Impaired f asting glycemia 289228073 R73.01 screening a1c and bmp due Thyroid fu nction tests abnormal 058868476 R94.6 4.150 on TSH last labs. due for repeat . Free t4 was still in range. Screening mammography 24 570715 Z12.31 mammogram due Postmenopausal state 764 32997 Z78.0 dexa scan due. Localized swelling of left lower limb [id number] R22.42 negative tatum's but some mild swelling in the LLE. send for LLE venous doppler Health Concerns Section Related Observation LastModified by Organization Detai ls LastModified Time None Recorded Concern Status LastModified by Organization Details LastModified Time None Recorded Advance Directives Directive None Recorded Payers Insurance Date Sequence Insurance Name Policy Number Policy Michael Covered Member ID Michael Member ID Guarantor Name 01/15/2024 1 [facility] (O) ILONEX [place] Godwin [id number] [place] Godwin 03/23/2023 1 [place] [id number] [place] Godwin [id number] [place] Godiwn 10/16/2023 1 *SELF PAY* [place] Notes Date Note [...] no early satiety; no halitosis Not Available [facility] [employer] [facility] 05/29/2022 14:38:19 022 text/h tml Anxiety/DepressionReported [...] in exercise capacity; no snoring Not Available [facility] 09/27/2022 19:43:14 023 text/h tml Anxiety/DepressionReported [...] no early satiety; no halitosis Not Available [facility] 12/30/2022 12:34:45 023 text/h tml Anxiety/DepressionReported [...] fatigue; no throat pain JOSEPH Crenshaw [address] [facility] [address], [place], [address], [facility] 04/26/2023 23:19:47 023 text/h tml Anxiety/DepressionReported bypatient.Severity:denies [...] medication PPI as ordered. JOSEPH Crenshaw [address] [facility] [facility] [address], [place], [address], [facility] 11/25/2023 15:40:35 OBGyn Episode No OBEpisode recorded.
--- OUTSIDE RECORDS SUMMARY | 2025-06-05 10:34 | XMS_ITS | Referral Summary ---
Author Organization [facility] [address] Address [address] [place] [address] Care Team Providers Care Test Engineering Intern Name Role Phone OneilAmira amhmoodaquiles RUIZ Primary Care Pr ovider Allergies Active [...] 2:16 PM CDT): 02/05-02/07: pt intubated 02/11: FAMILY COUNSELOR swallow 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 Keep binder in place. [place] POD 0, initiate TFs on POD 1. [...] post-injury. The patient may follow up in [facility] 2 weeks after discharge ([phone]) if any questions or concerns. At risk [...] post-injury. The patient may follow up in [facility] 2 weeks after discharge ([phone]) if any questions or concerns. Laceration of left hand without foreign body Assessment & Plan (02/11/2024 12:38 PM CDT): Repaired by Orthopedic Surgery bedside Keflex x7 days (02/06-02/13) Continue local wound care Subarachnoid hemorrhage 02/07/2024 Assessment & Plan (02/15/2024 2:12 PM CDT): Traumatic LEFT SAH, unstable and expanding on arrival to [facility]. Transferred to NNICU. NNICU & NSGY consult: [...] often do you have a drink containing alc ohol? Never 01/26/2025 Average Number of Drinks Not on file 025 Frequency of Binge Drinking Not on file 01/01 Hunger Vital Sign Answer Date Recorded Within [...] on file Legal Sex Female 3:55 AM PATENTS EXAMINER Gender Identity Not on file Sexual Orientation Not on file Last Filed Vital Signs Vital Sign Reading Time Taken Comments Blood Pressure 98/68 01/26/2025 2:12 PM PATENTS EXAMINER Pulse 85 01/26/2025 2:12 PM PATENTS EXAMINER Temperature 36.3 C (97.3 F) 05/05/2024 11:38 AM CDT Respiratory Rate 20 05/05/2024 11:38 AM CDT Oxygen Saturation 98% 01/02/2025 2:26 PM PATENTS EXAMINER Inhaled Oxygen Concentration - - Weight 74.2 kg (163 lb 9.6 oz) 01/26/2025 2:12 P M PATENTS EXAMINER Height 165.1 cm (5' 5) 01/26/2025 2:12 PM PATENTS EXAMINER Body Mass Index 27.22 01/26/2025 2:12 PM PATENTS EXAMINER Plan of Treatment Not on file Procedures Procedure Name Priority Date/Time Associated Diagnosis Comments HEPATITIS PANEL, ACUTE Routine 02/07/2024 9:18 AM CDT from Last 3 Months or Most Recently Relevant to Health Maintenance Results * Hepatitis panel, acute Blood (02/07/2024 9:18 AM CDT) Hep A IgM Nonreactive Nonreactive Hep B core IgM Nonreactive Nonreactive [facility] Hep C Ab Nonreactive Nonreactive [facility] Comment:Antibodies to HCV no t detected. Does NOT exclude the possibility of recent exposure to HCV. Current interpretive data was last revised on 22 HepBsAg Nonreactive Nonreactive [facility] Blood 02/07/2024 9:18 AM CDT 02/07/2024 9:48 AM CDT Kei Amaral MD LAB MICROBIOLOGY - GENERAL ORDERABLES Final Result [facility] Department [place] [address] from Last 3 Months or Most Recently Relevant to Health Maintenance Insurance [facility] PPO [place] [facility] MEDICARE ADVANTAGE 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
--- OUTSIDE RECORDS SUMMARY | 2025-06-05 10:34 | XMS_ITS | Clinical Summary ---
Author Organization [facility] [place] [address] Address [address] [place] [address] Care Team Providers Care Dipper Fish Name Role Phone OneilAmira mahmoodaquiles RUIZ Primary [...] 2:16 PM CDT): 02/05-02/07: pt intubated 02/11: INTERNAL AUDIT CONSULTANT swallow 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 Keep binder in place. [place] POD 0, initiate TFs on POD 1. [...] post-injury. The patient may follow up in [facility] 2 weeks after discharge ([phone]) if any questions or concerns. At risk [...] post-injury. The patient may follow up in [facility] 2 weeks after discharge ([phone]) if any questions or concerns. Laceration of left hand without foreign body Assessment & Plan (02/11/2024 12:38 PM CDT): Repaired by Orthopedic Surgery bedside Keflex x7 days (02/06-02/13) Continue local wound care Subarachnoid hemorrhage 02/07/2024 Assessment & Plan (02/15/2024 2:12 PM CDT): Traumatic LEFT SAH, unstable and expanding on arrival to [facility]. Transferred to NNICU. 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 MACHINE TENDER Gender Identity Not on file Sexual Orientation Not on file Obstetrics History Last Filed Vital Signs Vital Sign Reading Time Taken Comments Blood Pressure 98/68 01/26/2025 2:12 PM BREAKER MACHINE TENDER Pulse 85 01/26/2025 2:12 PM BREAKER MACHINE TENDER Temperature 36.3 C (97.3 F) 05/05/2024 11:38 AM CDT Respiratory Rate 20 05/05/2024 11:38 AM CDT Oxygen Saturation 98% 01/02/2025 2:26 PM BREAKER MACHINE TENDER Inhaled Oxygen Concentration - - Weight 74.2 kg (163 lb 9.6 oz) 01/26/2025 2:12 P M BREAKER MACHINE TENDER Height 165.1 cm (5' 5) 01/26/2025 2:12 PM BREAKER MACHINE TENDER Body Mass Index 27.22 01/26/2025 2:12 PM BREAKER MACHINE TENDER Plan of Treatment Health Maintenance Due Date [...] Nonreactive Hep B core IgM Nonreactive Nonreactive [facility] Hep C Ab Nonreactive Nonreactive [facility] Comment:Antibodies to HCV no t detected. Does NOT exclude the possibility of recent exposure to HCV. Current interpretive data was last revised on 22 HepBsAg Nonreactive Nonreactive [facility] Blood 02/07/2024 9:18 AM CDT 02/07/2024 9:48 AM CDT us Kei Amaral MD LAB MICROBIOLOGY - GENERAL ORDERABLES Final Result [facility] Department [place] [address] from Last 3 Months or Most Recently Relevant to Health Maintenance Insurance [employer] P[place] [facility] MEDICARE ADVANTAGE [facility] MEDICARE ADVANTAGE Advance Directives For more information, please contact: [phone] Documents on File Type Date Recorded 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
[2025-06-07 12:43] LABS: Red Blood Cell Folate 429 ng/mL RBC (>280)
[2025-06-07 13:13] LABS: Homocysteine. 14.0 umol/L (< or = 13.4)
[2025-06-07 16:53] LABS: Methylmalonic Acid. 235 nmol/L (69-390)
[2025-06-09 05:04] LABS: Vitamin B6. 17.2 ng/mL (2.1-21.7)
[2025-06-09 15:08] LABS: Reference Lab Test Result E3/E4
[2025-06-09 16:03] LABS: Vitamin D 1,25 (OH)2 Total 38 pg/mL (18-72); Vitamin D2 1,25 (OH)2 <8 pg/mL; Vitamin D3 1,25 (OH)2 38 pg/mL
[2025-06-09 21:12] LABS: Vitamin B1. 33 nmol/L (8-30)
[2025-06-12 20:43] LABS: A Beta 42 40 pg/mL; ABETA 40 317 pg/mL; Beta Amyloid 42/40 Ratio Plasm 0.126 (> OR = 0.170)
== END 2025-06-05 10:22 | disposition home or self-care (01) ==
PROVIDERS: PCP Physician Assistant; Visit Provider Psychiatry & Neurology Neurology
DX: R41.3 Other amnesia (principal); S06.6X9D Traumatic subarachnoid hemorrhage with loss of consciousness of unspecified duration, subsequent encounter; F10.10 Alcohol abuse, uncomplicated; X58.XXXD Exposure to other specified factors, subsequent encounter; E55.9 Vitamin D deficiency, unspecified
CPT/HCPCS: 36415; 82234; 82542; 82652; 82747; 83090; 83884; 83921; 84207; 84393; 84425

== ENCOUNTER 2025-08-02 14:31 | Outpatient (CLI) | payer MEDICARE, SELFPAY ==
--- NOTE | ~2025-08-02 | CT_ITS ---
EXAMINATION: CT lung screening DATE: 08/02/2025 14:46 INDICATION: Personal history of nicotine dependence TECHNIQUE: Computed tomography (CT) of the chest was performed without intravenous contrast. The dose-length product was 66.60 mGy-cm. Automated exposure control and iterative reconstruction technique were employed. COMPARISON: CT dated 05/12/2020 FINDINGS: Heart size normal. No thoracic lymphadenopathy. No significant pleural or pericardial abnormality. There is a liver cyst in the left hepatic lobe. There are calcified mediastinal and right hilar lymph nodes, consistent with chronic granulomatous disease. Chronic calcified right middle lobe nodule. There are small left lower lobe nodules unchanged, largest measuring 5 mm benign. There is left lower lobe atelectasis. No endobronchial lesions. No focal airspace consolidation. No pneumothorax. There is mild-moderate thoracic spondylosis. IMPRESSION: 1. Lung-RADS category 2: Benign appearance or behavior. Continue annual screening with noncontrast low-dose chest CT in 12 months. Reviewed, dictated and finalized at [facility]. IMPRESSION: 1. Lung-RADS category 2: Benign appearance or behavior. Continue annual screeni ng with noncontrast low-dose chest CT in 12 months.
== END 2025-08-02 14:32 | disposition home or self-care (01) ==
LOC: MICIMG 14:31
PROVIDERS: PCP Physician Assistant; Visit Provider Physician Assistant
DX: Z12.2 Encounter for screening for malignant neoplasm of respiratory organs (principal); Z87.891 Personal history of nicotine dependence
CPT/HCPCS: 71271